=== PATIENT | female | born 1975 | race Caucasian/White ===

== ENCOUNTER → 2019-06-22 12:41 | Outpatient (BNVA) | payer MEDICAID, SELFPAY | PROVIDERS: PCP Nurse Practitioner Family; Visit Provider Counselor Professional | DX: F33.2 Major depressive disorder, recurrent severe without psychotic features; F12.10 Cannabis abuse, uncomplicated | CPT/HCPCS: 90834 ==

== ENCOUNTER → 2019-07-16 07:41 | Outpatient (BNVA) | payer MEDICAID, SELFPAY | PROVIDERS: PCP Nurse Practitioner Family; Visit Provider Counselor Professional | DX: F43.12 Post-traumatic stress disorder, chronic (principal); F33.2 Major depressive disorder, recurrent severe without psychotic features | CPT/HCPCS: 90834 ==

== ENCOUNTER → 2019-07-17 10:34 | Outpatient (BNVA) | payer MEDICAID, SELFPAY | PROVIDERS: PCP Nurse Practitioner Family; Visit Provider Psychiatry & Neurology Psychiatry | DX: F33.2 Major depressive disorder, recurrent severe without psychotic features (principal); F43.12 Post-traumatic stress disorder, chronic; F12.10 Cannabis abuse, uncomplicated | CPT/HCPCS: 99213 ==

== ENCOUNTER → 2019-07-30 09:38 | Outpatient (BNVA) | payer MEDICAID, SELFPAY | PROVIDERS: PCP Nurse Practitioner Family; Visit Provider Counselor Professional | DX: F12.10 Cannabis abuse, uncomplicated (principal); F43.12 Post-traumatic stress disorder, chronic; F33.2 Major depressive disorder, recurrent severe without psychotic features | CPT/HCPCS: 90834 ==

== ENCOUNTER → 2019-07-31 15:29 | Outpatient (BNVA) | payer MEDICAID, SELFPAY | PROVIDERS: PCP Nurse Practitioner Family; Visit Provider Psychiatry & Neurology Psychiatry | DX: F43.12 Post-traumatic stress disorder, chronic (principal); F41.1 Generalized anxiety disorder; F33.2 Major depressive disorder, recurrent severe without psychotic features | CPT/HCPCS: 99213 ==

== ENCOUNTER → 2019-08-06 09:36 | Outpatient (BNVA) | payer MEDICAID, SELFPAY | PROVIDERS: PCP Nurse Practitioner Family; Visit Provider Counselor Professional | DX: F12.10 Cannabis abuse, uncomplicated (principal); F43.12 Post-traumatic stress disorder, chronic; F33.2 Major depressive disorder, recurrent severe without psychotic features | CPT/HCPCS: 90834 ==

== ENCOUNTER → 2019-08-18 13:11 | Outpatient (BNVA) | payer MEDICAID, SELFPAY | PROVIDERS: PCP Nurse Practitioner Family; Visit Provider Counselor Professional | DX: F43.12 Post-traumatic stress disorder, chronic (principal); F33.2 Major depressive disorder, recurrent severe without psychotic features | CPT/HCPCS: 90834 ==

== ENCOUNTER 2019-08-26 17:48 | Outpatient (CLI) | payer MEDICAID, SELFPAY | END 2019-08-26 17:49 | disposition home or self-care (01) | LOC: RAD 17:50 | PROVIDERS: Visit Provider Nurse Practitioner Family | DX: Z01.89 Encounter for other specified special examinations (principal) ==

== ENCOUNTER 2019-08-27 13:24 | Outpatient (CLI) | payer MEDICAID, SELFPAY ==
--- NOTE | 2019-08-27 13:33 | XR_ITS ---
WS: [id number] Thoracic spine, 3 views, 08/27/2019 Clinical Data: R ARM PAIN/UPPER BACK PAIN/ACUTE NECK PAIN Comparison: Thoracic spine, 08/24/2013. Findings: No compression fractures are seen. The disc heights are normal. Anterior osteoarthritic spurring is present from T3 through T12. The paravertebral areas are normal. XR/XR thoracic spine 2V 10082 Impression: Mild osteoarthritis of the vertebral bodies T3-T12.
--- NOTE | 2019-08-27 13:33 | XR_ITS ---
WS: [id number] Cervical spine, 3 views, 08/27/2019 Clinical Data: NECK PAIN/R ARM PAIN/UPPER BACK PAIN Comparison: Cervical spine, 11/15/2012. Findings: No compression fractures are seen. There is minimal disc space narrowing at C5-C6 with calc ification of the anterior longitudinal ligament.. There is no prevertebral soft tissue swelling. The odontoid is unremarkable. The soft tissues of the neck and the lung apices are normal. XR/XR cervical spine 3V* [id number] Impression: Minimal degenerative disc disease at C5-C6 with calcification of the anterior l ongitudinal ligament at this level.
== END 2019-08-27 13:25 | disposition home or self-care (01) ==
LOC: RAD 13:29
PROVIDERS: PCP Nurse Practitioner Family; Visit Provider Nurse Practitioner Family
DX: M47.894 Other spondylosis, thoracic region (principal); M47.892 Other spondylosis, cervical region; M54.2 Cervicalgia; M79.601 Pain in right arm; M54.6 Pain in thoracic spine
CPT/HCPCS: 72040; 72070; 99213

== ENCOUNTER → 2019-08-28 14:50 | Outpatient (BNVA) | payer MEDICAID, SELFPAY | PROVIDERS: PCP Nurse Practitioner Family; Visit Provider Counselor Professional | DX: F33.2 Major depressive disorder, recurrent severe without psychotic features (principal); F43.12 Post-traumatic stress disorder, chronic; F12.10 Cannabis abuse, uncomplicated | CPT/HCPCS: 90834 ==

== ENCOUNTER → 2019-09-09 14:05 | Outpatient (BNVA) | payer MEDICAID, SELFPAY | PROVIDERS: PCP Nurse Practitioner Family; Visit Provider Counselor Professional | DX: F12.10 Cannabis abuse, uncomplicated (principal); F43.12 Post-traumatic stress disorder, chronic; F33.2 Major depressive disorder, recurrent severe without psychotic features | CPT/HCPCS: 90834 ==

== ENCOUNTER → 2019-09-23 11:11 | Outpatient (BNVA) | payer MEDICAID, SELFPAY | PROVIDERS: PCP Nurse Practitioner Family; Visit Provider Counselor Professional | DX: F43.12 Post-traumatic stress disorder, chronic (principal); F33.2 Major depressive disorder, recurrent severe without psychotic features; F12.10 Cannabis abuse, uncomplicated | CPT/HCPCS: 90834 ==

== ENCOUNTER → 2019-10-07 08:17 | Outpatient (BNVA) | payer MEDICAID, SELFPAY | PROVIDERS: PCP Nurse Practitioner Family; Visit Provider Counselor Professional | DX: F12.10 Cannabis abuse, uncomplicated (principal); F43.12 Post-traumatic stress disorder, chronic; F33.2 Major depressive disorder, recurrent severe without psychotic features | CPT/HCPCS: 90834 ==

== ENCOUNTER → 2019-10-19 08:45 | Outpatient (BNVA) | payer MEDICAID, SELFPAY | PROVIDERS: PCP Nurse Practitioner Family; Visit Provider Counselor Professional | DX: F12.10 Cannabis abuse, uncomplicated (principal); F43.12 Post-traumatic stress disorder, chronic; F33.2 Major depressive disorder, recurrent severe without psychotic features | CPT/HCPCS: 90834 ==

== ENCOUNTER → 2019-11-05 07:43 | Outpatient (BNVA) | payer MEDICAID, SELFPAY | PROVIDERS: PCP Nurse Practitioner Family; Visit Provider Psychiatry & Neurology Psychiatry | DX: F43.12 Post-traumatic stress disorder, chronic (principal); F33.2 Major depressive disorder, recurrent severe without psychotic features; F12.10 Cannabis abuse, uncomplicated | CPT/HCPCS: 99213 ==

== ENCOUNTER → 2019-11-06 07:58 | Outpatient (BNVA) | payer MEDICAID, SELFPAY | PROVIDERS: PCP Nurse Practitioner Family; Visit Provider Counselor Professional | DX: F12.10 Cannabis abuse, uncomplicated (principal); F43.12 Post-traumatic stress disorder, chronic; F33.2 Major depressive disorder, recurrent severe without psychotic features | CPT/HCPCS: 90834 ==

== ENCOUNTER 2019-12-07 12:28 | Outpatient (CLI) | payer MEDICAID, SELFPAY ==
--- NOTE | 2019-12-07 12:37 | XRR_ITS ---
PROCEDURE INFORMATION: Exam: XR Right Knee Exam date and time: 12/07/2019 12:38 PM Age: 44 years old Clinical indication: Pain; Knee; Right; Additional info: R knee pain TECHNIQUE: Imaging protocol: XR Right knee. Views: 3 views. COMPARISON: No relevant prior studies available. FINDINGS: Bones/joints: Negative for acute bony abnormality Soft tissues: Unremarkable XR/XR knee RT 4V [id number] IMPRESSION: No acute findings.
== END 2019-12-07 12:29 | disposition home or self-care (01) ==
LOC: RAD 12:31
PROVIDERS: PCP Nurse Practitioner Family; Visit Provider Nurse Practitioner Family
DX: M25.561 Pain in right knee (principal)
CPT/HCPCS: 73564

== ENCOUNTER → 2019-12-09 07:53 | Outpatient (BNVA) | payer MEDICAID, SELFPAY | PROVIDERS: PCP Nurse Practitioner Family; Visit Provider Counselor Professional | DX: F12.10 Cannabis abuse, uncomplicated (principal); F43.12 Post-traumatic stress disorder, chronic; F33.2 Major depressive disorder, recurrent severe without psychotic features | CPT/HCPCS: 90834 ==

== ENCOUNTER → 2020-01-28 07:59 | Outpatient (BNVA) | payer MEDICAID, SELFPAY | PROVIDERS: PCP Nurse Practitioner Family; Visit Provider Psychiatry & Neurology Psychiatry | DX: F12.10 Cannabis abuse, uncomplicated (principal); F43.12 Post-traumatic stress disorder, chronic; F33.2 Major depressive disorder, recurrent severe without psychotic features | CPT/HCPCS: 99213 ==

== ENCOUNTER → 2020-02-08 09:02 | Outpatient (BNVA) | payer MEDICAID, SELFPAY | PROVIDERS: PCP Nurse Practitioner Family; Visit Provider Counselor Professional | DX: F12.10 Cannabis abuse, uncomplicated (principal); F43.12 Post-traumatic stress disorder, chronic; F33.2 Major depressive disorder, recurrent severe without psychotic features | CPT/HCPCS: 90834 ==

== ENCOUNTER → 2020-03-02 08:49 | Outpatient (BNVA) | payer MEDICAID, SELFPAY | PROVIDERS: PCP Nurse Practitioner Family; Visit Provider Counselor Professional | DX: F12.10 Cannabis abuse, uncomplicated (principal); F43.12 Post-traumatic stress disorder, chronic; F33.2 Major depressive disorder, recurrent severe without psychotic features | CPT/HCPCS: 90834 ==

== ENCOUNTER → 2020-03-04 08:24 | Outpatient (BNVA) | payer MEDICAID, SELFPAY | PROVIDERS: PCP Nurse Practitioner Family; Visit Provider Psychiatry & Neurology Psychiatry | DX: F43.12 Post-traumatic stress disorder, chronic (principal); F33.2 Major depressive disorder, recurrent severe without psychotic features; F12.10 Cannabis abuse, uncomplicated | CPT/HCPCS: 99214 ==

== ENCOUNTER → 2020-03-11 08:34 | Outpatient (BNVA) | payer MEDICAID, SELFPAY | PROVIDERS: PCP Nurse Practitioner Family; Visit Provider Counselor Professional | DX: F33.2 Major depressive disorder, recurrent severe without psychotic features (principal); F12.10 Cannabis abuse, uncomplicated; F43.12 Post-traumatic stress disorder, chronic | CPT/HCPCS: 90834 ==

== ENCOUNTER → 2020-03-24 07:56 | Outpatient (BNVA) | payer MEDICAID, SELFPAY | PROVIDERS: PCP Nurse Practitioner Family; Visit Provider Counselor Professional | DX: F33.2 Major depressive disorder, recurrent severe without psychotic features (principal); F12.10 Cannabis abuse, uncomplicated; F43.12 Post-traumatic stress disorder, chronic | CPT/HCPCS: 90834 ==

== ENCOUNTER → 2020-04-11 08:02 | Outpatient (BNVA) | payer MEDICAID, SELFPAY | PROVIDERS: PCP Nurse Practitioner Family; Visit Provider Counselor Professional | DX: F12.10 Cannabis abuse, uncomplicated (principal); F33.2 Major depressive disorder, recurrent severe without psychotic features; F43.12 Post-traumatic stress disorder, chronic | CPT/HCPCS: 90834 ==

== ENCOUNTER → 2020-04-21 07:35 | Outpatient (BNVA) | payer MEDICAID, SELFPAY | PROVIDERS: PCP Nurse Practitioner Family; Visit Provider Psychiatry & Neurology Psychiatry | DX: F43.12 Post-traumatic stress disorder, chronic (principal); F33.2 Major depressive disorder, recurrent severe without psychotic features; F12.10 Cannabis abuse, uncomplicated | CPT/HCPCS: 99213 ==

== ENCOUNTER → 2020-04-28 08:25 | Outpatient (BNVA) | payer MEDICAID, SELFPAY | PROVIDERS: PCP Nurse Practitioner Family; Visit Provider Counselor Professional | DX: F33.2 Major depressive disorder, recurrent severe without psychotic features (principal); F12.10 Cannabis abuse, uncomplicated; F43.12 Post-traumatic stress disorder, chronic | CPT/HCPCS: 90834 ==

== ENCOUNTER → 2020-05-02 08:26 | Outpatient (BNVA) | payer MEDICAID, SELFPAY | PROVIDERS: PCP Nurse Practitioner Family; Visit Provider Specialist | DX: R20.0 Anesthesia of skin (principal); M79.601 Pain in right arm | CPT/HCPCS: 95908 ==

== ENCOUNTER 2020-05-13 08:16 | Emergency (ER) | payer MEDICAID, SELFPAY ==
[2020-05-13 08:24] VITALS: BP 137/87; PULSE 115; RESP 18; TEMP 36.3; O2SAT 97; BMI 42.8
[2020-05-13 08:37] VITALS: BP 137/87; PULSE 107; RESP 18; O2SAT 97
--- NOTE | 2020-05-13 08:37 | XR_ITS ---
WS: [id number] LEFT WRIST: 3 VIEW(S) TECHNIQUE: PA, oblique and lateral. HISTORY: 12/30/2013 COMPARISON: None available. No acute fracture or dislocation. No joint space abnormality. No soft tissue swelling. XR/XR wrist LT min 3V* [id number] IMPRESSION: Negative LEFT wrist.
--- NOTE | 2020-05-13 08:37 | XR_ITS ---
WS: [id number] RIGHT KNEE: 3 VIEW(S) TECHNIQUE: AP, oblique(s) and lateral. HISTORY: fall COMPARISON: 12/07/2019 No fracture or dislocation. No joint space narrowing or osteophytes. No joint effusion. No soft tissue abnormality. XR/XR knee RT 3V* [id number] IMPRESSION: Normal RIGHT knee.
--- NOTE | 2020-05-13 08:38 | W.ED.EXTPRO ---
HPI - Extremity Problem General: Chief complaint: Extremity Injury, Upper Stated complaint: L WRIST/R KNEE PAIN, S/P FALL TODAY Time Seen by Provider: 05/13/20 08:30 History of Present Illness: HPI Narrative: She complains about left wrist pain right knee pain after a fall going up stairs this morning. Says she did hit her chin but has no pain to her chin presently MD Complaint: extremity pain Onset (ago): minute(s) Pain Consistency: constant Location: left, right, upper extremity, lower extremity, knee and other (Wrist left) Severity scale (1-10): 2 Quality: aching Radiation: none Relieving factors: immobilization Exacerbating factors: range of motion Associated symptoms: Reports no associated symptoms; Deny chest pain, fever(s) or rash Review of Systems Narrative: Patient tripped going up stairs landing on left wrist and hitting her right knee on the stair. Says she is slightly struck her chin but her chin is not bothering presently Const: Denies: fever(s), chills or body aches Eyes: Denies: change in vision or blurry vision ENMT: Denies: throat pain or nasal congestion Card: Denies: chest pain or dyspnea on exertion Resp: Denies: dyspnea, productive cough or non-productive cough GI: Denies: abdominal pain, nausea or vomiting Musc: Denies: extremity pain Skin/Breast: Denies: rash Neuro: Denies: headache(s) Psych: Denies: anxiety or depression Ta/Lymph: Denies: easy bruising PFSH ED PFSH: Medical History (Updated 05/13/20 @ 09:13 by ALEXANDRIA Carmona) delivery delivered X 2 Surgical History (Updated 07/17/19 @ 11:11 by Good Whitney LPN) H/O tubal ligation H/O: hysterectomy Social History (Updated 07/17/19 @ 11:17 by Good Whitney LPN) Smoking and tobacco status: never smoked Second hand smoke exposure: Yes Smoking risk assessment/counseling performed?: Yes Tobacco counseling given: counseling >3 minutes Physical Exam Const: COMMON NORMALS: no acute distress, average body habitus and patient oriented x3 HENMT: COMMON NORMALS: normocephalic HEAD & SCALP: normal to inspection and normocephalic FACE & SINUS: normal facial exam Eye: COMMON NORMALS: conjunctivae normal GENERAL EYE: appearance normal, both eyes and all related structures CONJUNCTIVA: Yes conjunctivae normal Neck/C-Spine: COMMON NORMALS: no JVD Chest: COMMONS NORMALS: normal inspection of the chest Resp: COMMON NORMALS: normal respiratory effort Cardio: COMMON NORMALS: no JVD GI: INSPECTION: Yes normal to inspection Extremity: COMMON NORMALS: normal to inspection and full ROM LEFT UPPER EXTREMITY: Yes wrist (Tender on the radial aspect no swelling bruising noted has good range of mo) RIGHT LOWER EXTREMITY: Yes knee joint (Tender to the medial aspect right knee no swelling bruising noted has good ) OTHER: chin appears fine neck without pain good range of motion Neuro: COMMON NORMALS: patient oriented x3 Course Vital Signs: Vital signs: Vital Signs Temperature 97.3 F L 05/13/20 08:24 Pulse Rate 107 H 05/13/20 08:37 Respiratory Rate 18 05/13/20 08:37 Blood Pressure 137/87 05/13/20 08:37 Pulse Oximetry 97 05/13/20 08:37 Discharge Plan Discharge Patient Disposition: Home Clinical Impression: Contusion Qualifiers: Encounter type: initial encounter Contusion area: knee Laterality: right Qualified Code(s): S80.01XA - Contusion of right knee, initial encounter Left wrist sprain Qualifiers: Encounter type: initial encounter Qualified Code(s): S63.502A - Unspecified sprain of left wrist, initial encounter Condition: Stable Prescriptions: No Action lisinopril 20 mg tablet 20 mg PO DAILY RF: 0 cyclobenzaprine 10 mg tablet 10 mg PO PRN RF: 0 amlodipine 10 mg tablet 10 mg PO DAILY RF: 0 metformin 500 mg tablet 500 mg PO BID RF: 0 propranolol 20 mg tablet 10 mg PO BID PRN (Reason: anxiety) Qty: 60 RF: 2 duloxetine [Cymbalta] 60 mg capsule,delayed release(DR/EC) 60 mg PO DAILY Qty: 30 RF: 2 duloxetine 30 mg capsule,delayed release(DR/EC) 30 mg PO DAILY Qty: 30 RF: 2 aripiprazole [Abilify] 2 mg tablet 2 mg PO DAILY Qty: 30 RF: 2 levocetirizine [Xyzal] 5 mg tablet 5 mg PO DAILY RF: 0 azelastine 137 mcg (0.1 %) aerosol,spray 2 spray intranasal BID RF: 0 Aspir-81 81 mg Tablet,Delayed Release (Dr/Ec) 81 mg PO DAILY RF: 0 Tylenol Extra Strength 500 mg Tablet 1,000 mg PO PRN RF: 0 Protonix 40 mg Tablet,Delayed Release (Dr/Ec) 40 mg PO DAILY RF: 0 prazosin 5 mg capsule 5 mg PO BEDTIME RF: 0 amitriptyline 100 mg tablet 100 mg PO BEDTIME RF: 0 Discharge Orders: Discharge Order (Routine); Ordered 05/13/20 Ordered By: Norm Tompkins Referrals: PAULA CAMPUZANO ANIMAL SCIENCE INSTRUCTOR [Primary Care Provider] - Discharge Diet: Usual diet Discharge Activity: Increase activity as tolerated Patient Instructions: Wrist Injury (ED), Contusion in Adults (ED) Activity Restrictions/Additional Instructions: Ice the areas as needed. Follow-up your family medical provider if no significant improvement. 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
[2020-05-13 09:47] VITALS: BP 123/94; PULSE 96; RESP 18; O2SAT 100
== END 2020-05-13 09:49 | disposition home or self-care (01) ==
PROVIDERS: Emergency Provider Nurse Practitioner Family; PCP Nurse Practitioner Family
DX: S80.01XA Contusion of right knee, initial encounter (principal); S63.502A Unspecified sprain of left wrist, initial encounter; Z79.82 Long term (current) use of aspirin; Z77.22 Contact with and (suspected) exposure to environmental tobacco smoke (acute) (chronic); W19.XXXA Unspecified fall, initial encounter
CPT/HCPCS: 12345; 73110; 73562; 99282; 99283

== ENCOUNTER → 2020-05-26 08:02 | Outpatient (BNVA) | payer MEDICAID, SELFPAY | PROVIDERS: PCP Nurse Practitioner Family; Visit Provider Counselor Professional | DX: F33.2 Major depressive disorder, recurrent severe without psychotic features (principal); F12.10 Cannabis abuse, uncomplicated; F43.12 Post-traumatic stress disorder, chronic | CPT/HCPCS: 90834 ==

== ENCOUNTER → 2020-06-23 08:20 | Outpatient (BNVA) | payer MEDICAID, SELFPAY | PROVIDERS: PCP Nurse Practitioner Family; Visit Provider Psychiatry & Neurology Psychiatry | DX: F43.12 Post-traumatic stress disorder, chronic (principal); F33.2 Major depressive disorder, recurrent severe without psychotic features; F12.10 Cannabis abuse, uncomplicated | CPT/HCPCS: 99213 ==

== ENCOUNTER → 2020-06-24 13:54 | Outpatient (BNVA) | payer MEDICAID, SELFPAY | PROVIDERS: PCP Nurse Practitioner Family; Visit Provider Orthopaedic Surgery | DX: Z20.828 Contact with and (suspected) exposure to other viral communicable diseases (principal); Z01.812 Encounter for preprocedural laboratory examination | CPT/HCPCS: 87635 ==

== ENCOUNTER 2020-06-30 05:40 | Day surgery (SDC) | payer MEDICAID, SELFPAY ==
[2020-06-29 15:30] VITALS: BMI 45.0
[2020-06-30 05:52] VITALS: BP 143/105; PULSE 74; RESP 18; TEMP 36.9; O2SAT 97
[2020-06-30] MEDS: sodium chloride 0.9% 1,000 ML 30 ML IV (06:01)
[2020-06-30 06:09] LABS: Glucose Point of Care 100 mg/dL (70-110)
--- NOTE | 2020-06-30 06:25 | P.ANESASSM_ITS ---
Pre-Anesthetic Assessment Pre-Anesthetic Assessment: Height/Weight: Height 1.75 m Weight 138.346 kg Temp Pulse Resp BP Pulse Ox 98.4 F 74 18 143/105 97 06/30/20 05:52 06/30/20 05:52 06/30/20 05:52 06/30/20 05:52 06/30/20 05:52 Preop Diagnosis: Cubital tunnel syndrome, right Proposed Procedure: Operation Date: 06/30/20 07:00 Proposed Procedures p Ulnar Nerve Decompression 56299 G56.21(Right) - Lenny Pennington MD Was Beta Rojas taken within 24 hours: Yes Last intake: Intake Last Liquid Date 06/29/20 Last Liquid Time 20:00 Last Solid Date 06/29/20 Last Solid Time 20:00 Social: Social History: No alcohol and No tobacco Exam: Pre-Anes Outpt Exam: alert, oriented x 3, clear to auscultation bilaterally and regular rate & rhythm Airway: Submandibular: WNL Cervical ROM: WNL MP: 2 Dentition: Full CV/HEM: CV/HEM: HTN Metabolic: Metabolic: DM and Morbid obesity Neuropsych: Neuropsych: Anxiety Anesthetic Plan: ASA status: 3 Anesthesia: Choice Other: Christmas blk/MAC to GA/LMA Risk of > 500 ml blood loss (7ml/kg in children): No Meds/Allergies Current Medications: Current Medications Generic Name Dose Route Start Last Admin Trade Name Freq PRN Reason Stop Dose Admin Sodium Chloride 1,000 mls @ 30 ml s/hr 06/30/20 06:00 06/30/20 06:01 Sodium Chloride 0.9% IV 07/01/20 05:59 30 mls/hr .Q24H PARKER Administration PFSH Anesthesia PFSH: Medical History (Updated 06/29/20 @ 15:30 by Airam Oseguera) delivery delivered X 2 Surgical History (Updated 06/29/20 @ 15:30 by Airam Oseguera) H/O tubal ligation H/O: hysterectomy Social History Smoking and tobacco status: never smoked Second hand smoke exposure: Yes Smoking risk assessment/counseling performed?: Yes Tobacco counseling given: counseling >3 minutes Data Anesthesia Other Labs: Laboratory Results - last 48 hr 06/30/20 06:05 POC Glucose 100 Cardiac Studies: No Data to Display
--- NOTE | 2020-06-30 06:57 | P.HP_ITS ---
Same Day Surgery H&P Indication for Procedure/HPI DATE OF PROCEDURE: June 30, 2020 CHIEF COMPLAINT/INDICATIONFOR SURGICAL PROCEDURE: 44-year-old female with right arm pain and numbness and a diagnosis of a cubital tunnel syndrome. She has failed therapy and had symptoms for years. She is here for ulnar nerve decompression PREOP DIAGNOSIS: Cubital tunnel syndrome, right PLANNED PROCEDRUE: Operation Date: 06/30/20 07:00 Proposed Procedures p Ulnar Nerve Decompression 94301 G56.21(Right) - Lenny Pennington MD Medications/Allergies* Home Medications Medication Instructions Recorded Confirmed Type amlodipine 10 mg tablet 10 mg PO DAILY 07/17/19 06/30/20 History lisinopril 20 mg tablet 20 mg PO DAILY 07/17/19 06/30/20 History metformin 500 mg tablet 500 mg PO BID 01/27/20 06/30/20 History azelastine 137 mcg (0.1 %) nasal 2 spray INTRANASAL BID 05/02/20 06/30/20 History spray aerosol levocetirizine 5 mg tablet 5 mg PO DAILY 05/02/20 06/30/20 History amitriptyline 100 mg PO BEDTIME 05/13/20 06/30/20 History aspirin [Aspir-81] 81 mg PO DAILY 05/13/20 06/30/20 History pantoprazole [Protonix] 40 mg PO DAILY 05/13/20 06/30/20 History acetaminophen 500 mg tablet 1,000 mg PO DAILY PRN tab 06/22/20 06/30/20 History cyclobenzaprine 10 mg tablet 10 mg PO DAILY PRN tab 06/22/20 06/30/20 History Allergies/Adverse Reactions Allergy/AdvReac Type Severity Reaction Status Date / Time No Known Allergies Allergy Verified 06/30/20 05:58 Current Medications: Generic Name Dose Route Start Last Admin Trade Name Freq PRN Reason Stop Dose Admin Sodium Chloride 1,000 mls @ 30 mls/hr 06/30/20 06:00 06/30/20 06:01 Sodium Chloride 0.9% IV 07/01/20 05:59 30 mls/hr .Q24H PARKER Administration Pertinent History/Comorbid Conditions* Medical History (Updated 05/21/20 @ 00:00 by ) delivery delivered X 2 Surgical History (Updated 07/17/19 @ 11:11 by Good Whitney LPN) H/O tubal ligation H/O: hysterectomy Social History Smoking and tobacco status: never smoked Second hand smoke exposure: Yes Smoking risk assessment/counseling performed?: Yes Tobacco counseling given: counseling >3 minutes Pertinent Exam Findings alert, oriented x 3, clear to auscultation bilaterally and operative site marked Recommendations Surgery/Procedure today Coding Level of 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
--- NOTE | 2020-06-30 07:59 | P.OP_ITS ---
Operative Report Date of procedure: June 30, 2020 Pre-op Diagnosis: Cubital tunnel syndrome, right Post-op diagnosis: same Post-op Findings: Same Procedure Done: Right ulnar nerve decompression Pathology: none sent Surgeon: Lenny Pennington Anesthesia: General Estimated blood loss (mL): 20 Tourniquet time (min): 20 Findings: No masses or space-occupying lesions were seen within the cubital tunnel. Condition: stable Disposition: PACU Procedure: the patient was taken to the operating room and given a general anesthesia. A tourniquet was inflated to 225 mmHg. A timeout was performed. A 5 cm long incision was made behind the medial epicondyle. Dissection was accomplished bluntly under loupe magnification identifying the ulnar nerve proximally. Utilizing a hemostat the fascia over the nerve was elevated and incised proximally. Dissection was then carried distally behind the medial epicondyle and into the flexor carpi ulnaris musculature. Dissection was stopped with the first muscular branches identified. Elbow was brought through range of motion with the nerve seen to stay reduced behind the medial epicondyl e. No formal transition was thought to be warranted. Wounds were irrigated with saline. Deep tissues were closed with 2-0 Vicryl. Subcutaneous is closed with 3-0 Vicryl. The skin was closed with a running 3-0 Prolene. Steri-Strips were applied. Xeroform gauze, 4 x 4's, compressive labral, and Jacob wrap, and a sling were applied. The patient was taken recovery room in stable condition.
[2020-06-30 08:12] VITALS: BP 132/86; PULSE 92; RESP 18; TEMP 36.2; O2SAT 98
--- NOTE | 2020-06-30 08:14 | P.PCN_ITS ---
PACU note PACU note: VSS, Good respiratory effort, report to LAB RN Post-Anesthesia Exam: awake
--- NOTE | 2020-06-30 08:14 | PM.PACU ---
PACU note PACU note: VSS, Good respiratory effort, report to CLINICAL SERVICES CONSULTANT Post-Anesthesia Exam: awake
[2020-06-30 08:15] VITALS: BP 142/89; PULSE 70; RESP 18; O2SAT 100
[2020-06-30 08:20] VITALS: BP 144/89; PULSE 74; RESP 30; TEMP 37; O2SAT 94
--- NOTE | 2020-06-30 08:20 | SUR.PHASEI ---
PT AWAKE ALERT ON RA IN PACU SINCE ARRIVAL, PT DENIES PAIN AND NAUSEA, WARM BLANKETS X 3 TO PT PER PT REQUEST, RT ARM IN SLING, DISTAL FINGERS PINK WARM. GOOD RESP EFFORT NOTED , NO DISTRESS, PT REQUESTS COKE TO SIP ON WILL GIVE REPORT TO OPS.
[2020-06-30 08:37] VITALS: BP 135/93; PULSE 78; RESP 18; TEMP 36.2; O2SAT 93
[2020-06-30] MEDS: HYDROcodone-acetaminophen 5-325 mg Tablet 1 TAB PO (09:07)
--- NOTE | 2020-06-30 10:26 | ANE.PACU2 ---
Inpatient post-anesthesia follow up: Airway intact: Yes Vital signs: Temperature 97.1 F Pulse Rate 78 Respiratory Rate 18 Blood Pressure 135/93 Pulse Oximetry 93 Oxygen Delivery Me thod Room Air Oxygen Flow Rate Fraction of Inspir ed Oxygen Hydration adequate: Yes Nausea and vomiting: No Pain level: 1 Mental status: Baseline
== END 2020-06-30 09:18 | disposition home or self-care (01) ==
PROVIDERS: PCP Nurse Practitioner Family; Visit Provider Orthopaedic Surgery
PROC: (CPT 64718; principal; 2020-06-30 07:00)
DX: G56.21 Lesion of ulnar nerve, right upper limb (principal); I10 Essential (primary) hypertension; E11.9 Type 2 diabetes mellitus without complications; E66.01 Morbid (severe) obesity due to excess calories; Z68.42 Body mass index [BMI] 45.0-49.9, adult; F41.9 Anxiety disorder, unspecified
CPT/HCPCS: 64718; 12345; 36416; 82962; J0690; J2704; J3010; J3490; J7030

== ENCOUNTER → 2020-07-07 11:09 | Outpatient (BNVA) | payer MEDICAID, SELFPAY | PROVIDERS: PCP Nurse Practitioner Family; Visit Provider Counselor Professional | DX: F33.2 Major depressive disorder, recurrent severe without psychotic features (principal); F12.10 Cannabis abuse, uncomplicated; F43.12 Post-traumatic stress disorder, chronic | CPT/HCPCS: 90834 ==

== ENCOUNTER 2020-07-15 11:14 | Outpatient (CLI) | payer MEDICAID, SELFPAY ==
--- NOTE | 2020-07-15 12:12 | ECG_ITS ---
[facility] Test Date: 2020-07-15 Pat Name: Celine Melgar Department: Room: Gender: Female Operations Analyst: : 1975 Requested By: Dimas Rodriguez Order Number: [id number] Doris MD: Bianca Kirby M.D. Measurements Intervals Raysal Rate: 80 P: 41 NM: 152 QRS: -23 QRSD: 106 T: 31 QT: 379 QTc: 439 Interpretive Statements SINUS RHYTHM BORDERLINE LEFT AXIS DEVIATION [QRS AXIS < -20] Compared to ECG 08/06/2018 15:42:46 Sinus bradycardia no longer present Myocardial infarct finding no longer present Electronically Signed On 07-15-2020 22:25:16 CONTACT FINGER ASSEMBLER by Bianca Kirby M.D. [id number]
[2020-07-15 12:13] LABS: Basophils # 0.1 10^3/uL (0.0-0.1); Basophils % 0.6 %; Eosinophils # 0.2 10^3/uL (0.0-0.8); Eosinophils % 1.7 %; Hematocrit 42.2 % (37.0-47.0); Hemoglobin 13.9 g/dL (11.5-15.3); Lymphocytes # 3.1 10^3/uL (0.8-4.8); Lymphocytes % 29.2 %; Mean Corpuscular HGB Conc 32.9 g/dL (30.0-36.0); Mean Corpuscular Hemoglobin 28.5 pg (28.0-34.0); Mean Corpuscular Volume 86.7 fL (81-99); Mean Platelet Volume 9.9 fL (7.4-10.4); Monocytes # 0.7 10^3/uL (0.2-0.9); Monocytes % 6.2 %; Neutrophils # 6.52 10^3/uL (1.8-7.7); Neutrophils % 61.5 %; Nucleated Red Blood Cells % 0 %; Platelet Count 329 10^3/cmm (130-400); Red Blood Count 4.87 10^6/uL (4.1-5.3); Red Cell Distribution Width 11.9 % (12.1-15.1); White Blood Count 10.6 10^3/uL (4.0-10.0)
[2020-07-15 12:40] LABS: Anion Gap 14.9 (5-19); Blood Urea Nitrogen 10 mg/dL (6-20); Carbon Dioxide 26 mmol/L (22-29); Chloride 103 mmol/L (98-107); Glomerular Filtration Rate 91.3 mL/min (90-130); Glucose 104 mg/dL (65-115); Osmolality Calculated 289 mOsm/kg (285-295); Potassium 3.9 mmol/L (3.5-5.1); Sodium 140 mmol/L (136-145)
== END 2020-07-15 11:15 | disposition home or self-care (01) ==
PROVIDERS: PCP Nurse Practitioner Family; Visit Provider Specialist
DX: J32.0 Chronic maxillary sinusitis (principal)
CPT/HCPCS: 80048; 85025; 93005

== ENCOUNTER → 2020-07-28 08:59 | Outpatient (BNVA) | payer MEDICAID, SELFPAY | PROVIDERS: PCP Nurse Practitioner Family; Visit Provider Counselor Professional | DX: F33.2 Major depressive disorder, recurrent severe without psychotic features (principal); F12.10 Cannabis abuse, uncomplicated; F43.12 Post-traumatic stress disorder, chronic | CPT/HCPCS: 90834 ==

== ENCOUNTER 2020-07-28 14:28 | Emergency (ER) | payer MEDICAID, SELFPAY ==
[2020-07-28 14:32] VITALS: BP 182/119; PULSE 82; RESP 16; TEMP 37; O2SAT 98; BMI 46.8
[2020-07-28 15:29] VITALS: BP 154/94; PULSE 95; RESP 16; O2SAT 97
[2020-07-28 15:46] VITALS: BP 137/106; PULSE 73; RESP 16; O2SAT 97
--- NOTE | 2020-07-28 15:49 | ED_ITS ---
HPI - Headache General: Chief Complaint: Headache Stated Complaint: MIGRAINE Time Seen by Provider: 07/28/20 15:33 History of Present Illness: HPI Narrative: Patient complains about a migraine for the last 4 days. She has a longstanding history of these. She has taken all her medication she has prescribed plus Excedrin Migraine nothing has worked. She claims about photo and phonophobia. And nausea. MD elicited complaint: migraine Pertinent past history: migraines Onset (ago): day(s) (For) Onset description: while at rest Location: diffuse Severity: moderate Pain scale (0-10): 8 Quality & Timing: aching and throbbing Exacerbating factors: none Relieving factors: dark room Context: occurred at rest Associated symptoms: Reports nausea and photophobia; Deny chest pain, fever(s), neck stiffness, rash or vomiting Treatments prior to arrival: acetaminophen and migraine medication Review of Systems Const: Denies: fever(s), chills or body aches Eyes: Denies: change in vision or blurry vision ENMT: Denies: throat pain or nasal congestion Card: Denies: chest pain or dyspnea on exertion Resp: Denies: dyspnea, productive cough or non-productive cough GI: Reports: nausea; Denies: abdominal pain or vomiting Musc: Denies: extremity pain Skin/Breast: Denies: rash Neuro: Reports: headache(s) Psych: Denies: anxiety or depression Ta/Lymph: Denies: easy bruising [facility] ED PFSH: Medical History delivery delivered X 2 Surgical History H/O tubal ligation H/O: hysterectomy Social History Smoking and tobacco status: never smoked Second hand smoke exposure: Yes Smoking risk assessment/counseling performed?: Yes Tobacco counseling given: counseling >3 minutes Physical Exam Const: COMMON NORMALS: no acute distress, average body habitus and patient oriented x3 HENMT: COMMON NORMALS: normocephalic HEAD & SCALP: normal to inspection and normocephalic FACE & SINUS: normal facial exam Eye: COMMON NORMALS: conjunctivae normal GENERAL EYE: appearance normal, both eyes and all related structures CONJUNCTIVA: Yes conjunctivae normal DIRECT OPHTHALMOSCOPY: Yes photophobia Neck/C-Spine: COMMON NORMALS: no JVD Chest: COMMONS NORMALS: normal inspection of the chest Resp: COMMON NORMALS: normal respiratory effort and clear to auscultation bilaterally AUSCULTATION: clear to auscultation bilaterally Cardio: COMMON NORMALS: no JVD, regular rate and regular rhythm RATE: regular rate RHYTHM: regular rhythm GI: COMMON NORMALS: Normal to inspection, nondistended, normoactive bowel sounds present Extremity: COMMON NORMALS: normal to inspection and full ROM Neuro: COMMON NORMALS: patient oriented x3 and CN's II-XII intact bilaterally Course Vital Signs: Vital signs: Vital Signs Temperature 98.6 F 07/28/20 14:32 Pulse Rate 73 07/28/20 15:46 Respiratory Rate 16 07/28/20 15:46 Blood Pressure 137/106 07/28/20 15:46 Pulse Oximetry 97 07/28/20 15:46 Discharge Plan Discharge Prescriptions: No Action lisinopril 20 mg tablet 20 mg PO DAILY RF: 0 amlodipine 10 mg tablet 10 mg PO DAILY RF: 0 cyclobenzaprine 10 mg tablet 10 mg PO DAILY PRN (Reason: muscle spasm) RF: 0 metformin 500 mg tablet 500 mg PO BID RF: 0 levocetirizine [Xyzal] 5 mg tablet 5 mg PO DAILY RF: 0 azelastine 137 mcg (0.1 %) aerosol,spray 2 spray intranasal BID RF: 0 aripiprazole [Abilify] 2 mg tablet 2 mg PO DAILY Qty: 30 RF: 2 duloxetine [Cymbalta] 60 mg capsule,delayed release(DR/EC) 60 mg PO DAILY Qty: 30 RF: 2 duloxetine 30 mg capsule,delayed release(DR/EC) 30 mg PO DAILY Qty: 30 RF: 2 prazosin 5 mg capsule 5 mg PO BEDTIME Qty: 30 RF: 2 propranolol 20 mg tablet 10 mg PO BID PRN (Reason: anxiety) Qty: 60 RF: 2 aspirin 81 mg Tablet,Delayed Release (Dr/Ec) 81 mg PO DAILY RF: 0 pantoprazole [Protonix] 40 mg Tablet,Delayed Release (Dr/Ec) 40 mg PO DAILY RF: 0 amitriptyline 100 mg tablet 100 mg PO BEDTIME RF: 0 Tylenol Extra Strength 500 mg tablet 1,000 mg PO DAILY PRN (Reason: fever or pain) RF: 0 hydrocodone-acetaminophen 5-325 mg tablet 1 tab PO Q4H Qty: 30 RF: 0 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
[2020-07-28] MEDS: ketorolac 30 mg/mL INJ IVP (16:00)
[2020-07-28] MEDS: ondansetron 2 mg/ML SDV 2 mL 4 MG IVP (16:03)
[2020-07-28 16:05] VITALS: PULSE 81; RESP 16; O2SAT 98
[2020-07-28] MEDS: diphenhydrAMINE 50 mg/mL SDV 1mL 12.5 MG IVP (16:05)
[2020-07-28 16:52] VITALS: BP 172/131; PULSE 69; RESP 16; O2SAT 95
[2020-07-28] MEDS: lisinopril 20 mg Tablet PO (16:54)
[2020-07-28 17:14] VITALS: BP 132/101; PULSE 74; RESP 17; O2SAT 98
== END 2020-07-28 17:16 | disposition home or self-care (01) ==
PROVIDERS: Emergency Provider Nurse Practitioner Family; PCP Nurse Practitioner Family
DX: R51.9 Headache, unspecified (principal); R11.0 Nausea; H53.149 Visual discomfort, unspecified; Z79.82 Long term (current) use of aspirin
CPT/HCPCS: 96374; 96375; 99283; J1200; J1885; J2405

== ENCOUNTER → 2020-08-19 08:38 | Outpatient (BNVA) | payer MEDICAID, SELFPAY | PROVIDERS: PCP Nurse Practitioner Family; Visit Provider Counselor Professional | DX: F33.2 Major depressive disorder, recurrent severe without psychotic features (principal); F12.10 Cannabis abuse, uncomplicated; F43.12 Post-traumatic stress disorder, chronic | CPT/HCPCS: 90834 ==

== ENCOUNTER → 2020-09-08 15:29 | Outpatient (BNVA) | payer MEDICAID, SELFPAY | PROVIDERS: PCP Nurse Practitioner Family; Visit Provider Counselor Professional | DX: F33.2 Major depressive disorder, recurrent severe without psychotic features (principal); F12.10 Cannabis abuse, uncomplicated; F43.12 Post-traumatic stress disorder, chronic | CPT/HCPCS: 90834 ==

== ENCOUNTER → 2020-09-15 08:45 | Outpatient (BNVA) | payer MEDICAID, SELFPAY | PROVIDERS: PCP Nurse Practitioner Family; Visit Provider Psychiatry & Neurology Psychiatry | DX: F43.12 Post-traumatic stress disorder, chronic (principal); F33.2 Major depressive disorder, recurrent severe without psychotic features; F12.10 Cannabis abuse, uncomplicated | CPT/HCPCS: 99213 ==

== ENCOUNTER 2020-09-21 10:35 | Emergency (ER) | payer MEDICAID, SELFPAY ==
[2020-09-21 10:37] VITALS: BP 176/103; PULSE 87; RESP 18; TEMP 36.5; O2SAT 96; BMI 48.6
--- NOTE | 2020-09-21 10:51 | W.ED.EXTPRO ---
HPI - Extremity Problem General: Chief complaint: Extremity Problem,Nontraumatic Stated complaint: LOWER EXTREMITY SWELLING/PAIN Time Seen by Provider: 09/21/20 10:42 Source: patient Mode of arrival: ambulatory Limitations: no limitations History of Present Illness: HPI Narrative: Patient is a 45-year-old female presents to ED today for evaluation of lower extremity swelling. Patient states over the last week and a half she has noticed intermittent swelling to her bilateral lower extremities. She tells me she has tried compression stockings and elevation without relief. She states she has seen her PCP at [facility] but states they did not seem concerned . Patient denies any new medications. She states she has limited her salt intake but again has not noticed any improvement. She is not complaining of shortness of breath or chest pain. No abdominal swelling. MD Complaint: extremity swelling Onset (ago): day(s) Pain Consistency: constant and intermittent Location: left, right and lower extremity Relieving factors: nothing Exacerbating factors: nothing Associated symptoms: Reports no associated symptoms; Deny chest pain, fever(s) or rash Review of Systems Const: Denies: fever(s), chills, body aches, fatigue or malaise Eyes: Denies: change in vision or blurry vision Card: Reports: swelling of feet/ankles; Denies: chest pain, palpitations, irregular heart rhythm, edema, lightheadedness, syncope, pre-syncope, dyspnea on exertion, orthopnea, leg pain with exertion or acrocyanosis Resp: Denies: dyspnea GI: Denies: abdominal pain, nausea or vomiting Musc: Reports: extremity pain and extremity swelling; Denies: neck pain, back pain, joint pain, joint swelling, joint redness, joint warmth, joint stiffness or limited range of motion Skin/Breast: Denies: rash Neuro: Denies: headache(s), numbness in extremities, weakness in extremities, sensory changes or difficulty walking [facility] ED PFSH: Medical History delivery delivered X 2 Surgical History H/O tubal ligation H/O: hysterectomy Social History Smoking and tobacco status: never smoked Second hand smoke exposure: Yes Smoking risk assessment/counseling performed?: Yes Tobacco counseling given: counseling >3 minutes Physical Exam Const: COMMON NORMALS: no acute distress, patient oriented x3, no limitations and alert GENERAL APPEARANCE: cooperative NUTRITIONAL APPEARANCE: obese morbidly obese ORIENTATION/CONSCIOUSNESS: Yes awake, Yes oriented to person, Yes oriented to place and Yes oriented to time HENMT: COMMON NORMALS: normocephalic and atraumatic HEAD & SCALP: normocephalic and atraumatic Resp: COMMON NORMALS: normal respiratory effort and clear to auscultation bilaterally AUSCULTATION: clear to auscultation bilaterally Cardio: COMMON NORMALS: regular rate and regular rhythm RATE: regular rate RHYTHM: regular rhythm GI: COMMON NORMALS: Normal to inspection, nondistended, normoactive bowel sounds present, Soft to palpation, non-tender, No hepatosplenomegaly present and no masses INSPECTION: Yes other (no ascites ) PALPATION: Yes Soft to palpation and Yes No hepatosplenomegaly present Extremity: COMMON NORMALS: full ROM, capillary refill normal, no joint enlargement and no calf tenderness NARRATIVE EXTREMITY EXAM: bilateral symmetrical LE non-pitting edema GENERAL: Yes normal exam except as noted Neuro: COMMON NORMALS: patient oriented x3, moves all extremities, no focal motor deficits, no sensory deficits noted and gait normal SENSORIUM/ORIENTATION: Yes alert, Yes oriented to person, Yes oriented to place and Yes oriented to time Skin: COMMON NORMALS: no rashes or lesions noted GENERAL SKIN EXAM: no rashes or lesions noted Course Vital Signs: Vital signs: Vital Signs Temperature 97.7 F 09/21/20 10:37 Pulse Rate 84 09/21/20 11:05 Respiratory Rate 18 09/21/20 10:37 Blood Pressure 176/103 09/21/20 10:37 Pulse Oximetry 96 09/21/20 10:37 MDM - Extremity (Nontraumatic) MDM Narrative: Medical decision making narrative: Patient's labs are non-concerning. Discussed with her possible higher grade compression stockings. Discussed weight loss. Mentioned that patient's amlodipine can cause lower extremity swelling-she can discuss this with her primary care provider. She is stable for discharge. Lab Data: Labs: Lab Results 09/21/20 09/21/20 Range/Units 11:03 11:03 WBC 8.0 (4.0-10.0) 10^3/ uL RBC 4.85 (4.1-5.3) 10^6/u L Hgb 13.8 (11.5-15.3) g/dL Hct 41.4 (37.0-47.0) % MCV 85.4 (81-99) fL MCH 28.5 (28.0-34.0) pg MCHC 33.3 (30.0-36.0) g/dL RDW 12.4 (12.1-15.1) % Plt Count 314 (130-400) 10^3/c mm MPV 9.8 (7.4-10.4) fL Neut % (Auto) 62.8 % Lymph % (Auto) 27.6 % [place] % (Auto) 7.2 % Eos % (Auto) 1.6 % Baso % (Auto) 0.4 % Neut # (Auto) 5.04 (1.8-7.7) 10^3/u L Lymph # (Auto) 2.2 (0.8-4.8) 10^3/u L [place] # (Auto) 0.6 (0.2-0.9) 10^3/u L Eos # (Auto) 0.1 (0.0-0.8) 10^3/u L Baso # (Auto) 0.0 (0.0-0.1) 10^3/u L Nucleated RBC % (a uto) 0 % Nucleated RBCs # 0.0 /100WBC Sodium 139 (136-145) mmol/L Potassium 3.6 (3.5-5.1) mmol/L Chloride 103 (98-107) mmol/L Carbon Dioxide 25 (22-29) mmol/L Anion Gap 14.6 (5-19) BUN 12 (6-20) mg/dL Creatinine 0.8 (0.5-0.9) mg/dL GFR Calculation 77.9 L (90-130) mL/min Glucose 137 H (65-115) mg/dL Calculated Osmolal ity 290 (285-295) mOsm/k g Calcium 8.7 (8.5-10.5) mg/dL Total Bilirubin 0.5 (0.15-1.2) mg/dL AST 19 (0-32) U/L ALT 31 (0-33) U/L Alkaline Phosphata se 60 (35-105) IU/L NT-Pro-B Natriuret Pep 114 (0-125) pg/mL Total Protein 7.3 (6.6-8.7) g/dL Albumin 4.2 (3.5-5.2) g/dL Globulin 3.1 (1.3-4.6) g/dL Discharge Plan Discharge Patient Disposition: Home Clinical Impression: Bilateral leg edema Condition: Stable Prescriptions: No Action lisinopril 20 mg tablet 20 mg PO DAILY RF: 0 amlodipine 10 mg tablet 10 mg PO DAILY RF: 0 tizanidine 4 mg capsule 4 mg PO TID PRNRF: 0 fenofibrate nanocrystallized 145 mg tablet 145 mg PO DAILY RF: 0 propranolol 20 mg tablet 10 mg PO BID PRN (Reason: anxiety) Qty: 60 RF: 2 prazosin 5 mg capsule 10 mg PO BEDTIME Qty: 60 RF: 2 aripiprazole [Abilify] 2 mg tablet 2 mg PO DAILY Qty: 30 RF: 2 metformin 500 mg tablet 500 mg PO BID RF: 0 levocetirizine [Xyzal] 5 mg tablet 5 mg PO DAILY RF: 0 azelastine 137 mcg (0.1 %) aerosol,spray 2 spray intranasal BID RF: 0 aspirin 81 mg Tablet,Delayed Release (Dr/Ec) 81 mg PO DAILY RF: 0 pantoprazole [Protonix] 40 mg Tablet,Delayed Release (Dr/Ec) 40 mg PO DAILY RF: 0 Tylenol Extra Strength 500 mg tablet 1,000 mg PO DAILY PRN (Reason: fever or pain) RF: 0 hydrocodone-acetaminophen 5-325 mg tablet 1 tab PO Q4H Qty: 30 RF: 0 Discharge Orders: Discharge ED (Routine); Ordered 09/21/20 Ordered By: Rozina Frost Referrals: Amada Rivers, WALKING DRAGLINE OPERATOR [Primary Care Provider] - Patient Instructions: Leg Edema (ED) Coding Level of Care Code ED Fishing Vessel Mate for [place] Exam Comprehensive
[2020-09-21 11:05] VITALS: PULSE 84
[2020-09-21 11:08] LABS: Basophils % 0.4 %; Eosinophils # 0.1 10^3/uL (0.0-0.8); Eosinophils % 1.6 %; Hematocrit 41.4 % (37.0-47.0); Hemoglobin 13.8 g/dL (11.5-15.3); Lymphocytes # 2.2 10^3/uL (0.8-4.8); Lymphocytes % 27.6 %; Mean Corpuscular HGB Conc 33.3 g/dL (30.0-36.0); Mean Corpuscular Hemoglobin 28.5 pg (28.0-34.0); Mean Corpuscular Volume 85.4 fL (81-99); Mean Platelet Volume 9.8 fL (7.4-10.4); Monocytes # 0.6 10^3/uL (0.2-0.9); Monocytes % 7.2 %; Neutrophils # 5.04 10^3/uL (1.8-7.7); Neutrophils % 62.8 %; Nucleated Red Blood Cells % 0 %; Platelet Count 314 10^3/cmm (130-400); Red Blood Count 4.85 10^6/uL (4.1-5.3); Red Cell Distribution Width 12.4 % (12.1-15.1)
[2020-09-21 11:40] LABS: Alanine Aminotransferase 31 U/L (0-33); Albumin Level 4.2 g/dL (3.5-5.2); Alkaline Phosphatase 60 IU/L (35-105); Anion Gap 14.6 (5-19); Aspartate Amino Transferase 19 U/L (0-32); Blood Urea Nitrogen 12 mg/dL (6-20); Calcium 8.7 mg/dL (8.5-10.5); Carbon Dioxide 25 mmol/L (22-29); Chloride 103 mmol/L (98-107); Globulin 3.1 g/dL (1.3-4.6); Glomerular Filtration Rate 77.9 mL/min (90-130); Glucose 137 mg/dL (65-115); NT Pro B Type Natriuretic Pept 114 pg/mL (0-125); Osmolality Calculated 290 mOsm/kg (285-295); Potassium 3.6 mmol/L (3.5-5.1); Sodium 139 mmol/L (136-145); Total Bilirubin 0.5 mg/dL (0.15-1.2); Total Protein 7.3 g/dL (6.6-8.7)
== END 2020-09-21 12:02 | disposition home or self-care (01) ==
PROVIDERS: Emergency Provider Physician Assistant; PCP Nurse Practitioner Family
DX: R60.0 Localized edema (principal); Z79.84 Long term (current) use of oral hypoglycemic drugs; Z79.82 Long term (current) use of aspirin; Z77.22 Contact with and (suspected) exposure to environmental tobacco smoke (acute) (chronic)
CPT/HCPCS: 80053; 83880; 85025; 99282

== ENCOUNTER 2020-09-26 10:24 | Emergency (ER) | payer MEDICAID, SELFPAY ==
[2020-09-26 10:29] VITALS: BP 224/114; PULSE 61; RESP 16; TEMP 36.5; O2SAT 94; BMI 47.2
[2020-09-26] MEDS: sodium chloride 0.9% 1,000 ML 999 ML IV (10:47)
[2020-09-26] MEDS: ondansetron 2 mg/ML SDV 2 mL 4 MG IVP ×2 (10:48→13:09)
--- NOTE | 2020-09-26 10:55 | CT_ITS ---
WS: [id number] CT ABDOMEN AND PELVIS WITH CONTRAST HISTORY: RIGHT lower quadrant pain with nausea. TECHNIQUE: Imaging performed of the abdomen and pelvis with IV contrast. Single phase imaging of the abdomen. Coronal and sagittal reformats are submitted. All CT scans at [facility] use at least one of these dose optimization techniques: automated exposure control; mA and/or kV adjustment per patient size (includes targeted exams where dose is matched to clinical indication); or iterativ e reconstruction. IV CONTRAST: Omnipaque 300; 95 mL IV. Oral contrast: No DLP: 1973.44 mGy.cm COMPARISON: None available. Lower thorax: Lung bases are clear. Heart is normal size. Small hiatal hernia. Liver/biliary system: Diffuse moderate hepatic steatosis. No mass or bile duct dilatation. Gallbladder: Status post cholecystectomy. Pancreas: Normal. Spleen: Normal size spleen with cystic mass in the tail measuring 2.5 x 2.8 cm. Adrenal glands: Normal. Right kidney: Moderate enlargement of the kidney with perinephric stranding and moderate hydronephros is. Ureter is dilated and tortuous into the pelvis. 5 mm calcification in the distal ureter. Solid ap pearing mass in the upper pole measures 2.5 x 2.2 cm needs follow-up evaluation. No mass was identifi ed on the prior ultrasound from 2013. Left kidney: Too small to characterize scattered hypodensities. Nonobstructing 4 mm calcification in the lower pole. Aorta: Normal. Lymphadenopathy: None. Free fluid: None. GI tract: Prior appendectomy. No GI tract obstruction. Abdominal wall: Fat-containing umbilical hernia. There is an additional small midline umbilical fat-c ontaining hernia. Pelvis: Normal. Bones: Mixed lytic sclerotic lesion in the LEFT femoral neck with no cortical destruction. Was probab ly present on the localizer from the CT of 06/14/2016. CT/CT abdomen pelvis w con* [id number] IMPRESSION: 1. Moderate RIGHT hydroureteronephrosis secondary to a 5 mm calcification in t he distal ureter. 2. Enlarged RIGHT kidney with perinephric stranding and changes of pyelonephri tis suspected. 3. Nonobstructing calcification lower pole LEFT kidney. 4. Indeterminate mass within the superior pole RIGHT kidney may be a renal selene l neoplasm. Suggest renal CT mass protocol follow-up in 3 months to evaluate fo r any change in size. 5. Hepatic steatosis. 6. Prior cholecystectomy, appendectomy and hysterectomy.
[2020-09-26 11:01] LABS: Basophils % 0.2 %; Eosinophils % 0.2 %; Hematocrit 42.5 % (37.0-47.0); Hemoglobin 13.9 g/dL (11.5-15.3); Lymphocytes # 2.1 10^3/uL (0.8-4.8); Lymphocytes % 15.6 %; Mean Corpuscular HGB Conc 32.7 g/dL (30.0-36.0); Mean Corpuscular Hemoglobin 27.9 pg (28.0-34.0); Mean Corpuscular Volume 85.3 fL (81-99); Mean Platelet Volume 10.1 fL (7.4-10.4); Monocytes # 1.5 10^3/uL (0.2-0.9); Monocytes % 11.5 %; Neutrophils # 9.47 10^3/uL (1.8-7.7); Neutrophils % 71.8 %; Nucleated Red Blood Cells % 0 %; Platelet Count 368 10^3/cmm (130-400); Red Blood Count 4.98 10^6/uL (4.1-5.3); Red Cell Distribution Width 12.7 % (12.1-15.1); White Blood Count 13.2 10^3/uL (4.0-10.0)
--- NOTE | 2020-09-26 11:06 | W.ED.ABDPA2 ---
HPI - Abdominal Pain General: Chief Complaint: Abdominal Pain Stated Complaint: lower right abd pain Time Seen by Provider: 09/26/20 10:29 History of Present Illness: HPI narrative: 45-year-old female presents emergency room with complaint of abdominal pain that began last night and localizes pain to the right lower quadrant of the abdomen with nausea and vomiting. She has had decreased urination with urgency and frequency mild dysuria. Denies any hematochezia or melena. She has previously had a hysterectomy and a cholecystectomy. MD elicited complaint: abdominal pain Onset (ago): hour(s) Pain Consistency: constant Location: None Quality: cramping Radiation: none Migration to: no migration Exacerbating factors: eating Relieving factors: nothing Associated Symptoms: Reports anorexia, bloating, GI cramping, loose stools, nausea, poor appetite and vomiting; Denies belching, change in bowel habits, change in stool character, chills, coffee ground emesis, constipation, diarrhea, dyspepsia, dysuria, excessive flatus, fever(s), heartburn, hematochezia, hematuria, hematemesis, fecal incontinence, melena and syncope Review of Systems Const: Denies: fever(s) or chills ENMT: Denies: throat pain, ear or mastoid pain, nasal discharge or nasal congestion Card: Denies: syncope Resp: Denies: dyspnea, productive cough or non-productive cough GI: Reports: vomiting, bloating and GI cramping; Denies: hematemesis, coffee ground emesis, heartburn, diarrhea, constipation, belching, excessive flatus, fecal incontinence, change in bowel habits, change in stool character, hematochezia or melena : Denies: dysuria or hematuria Skin/Breast: Denies: rash or pruritus PFS ED PFSH: Medical History delivery delivered X 2 Surgical History H/O tubal ligation H/O: hysterectomy Social History Smoking and tobacco status: never smoked Second hand smoke exposure: Yes Smoking risk assessment/counseling performed?: Yes Tobacco counseling given: counseling >3 minutes Alcohol intake: never Substance/Drug Use: current Substance/Drug use frequency: daily Substance/Drug use type: Marijuana Physical Exam Const: COMMON NORMALS: no acute distress GENERAL APPEARANCE: cooperative and comfortable ORIENTATION/CONSCIOUSNESS: Yes awake, Yes oriented to person, Yes oriented to place and Yes oriented to time HENMT: COMMON NORMALS: normocephalic, atraumatic and hearing grossly normal bilaterally HEAD & SCALP: normocephalic and atraumatic Neck/C-Spine: COMMON NORMALS: no JVD Resp: COMMON NORMALS: normal respiratory effort, No retractions, No use of accessory muscles and clear to auscultation bilaterally AUSCULTATION: clear to auscultation bilaterally Cardio: COMMON NORMALS: no JVD, regular rate, regular rhythm and No murmurs present (Cardio) RATE: regular rate RHYTHM: regular rhythm GI: COMMON NORMALS: Soft to palpation and No hepatosplenomegaly present AUSCULTATION: Yes normoactive bowel sounds PALPATION: Yes Soft to palpation, No Tenderness to palpation present (GI), No Guarding due to palpation present (GI) and Yes No hepatosplenomegaly present Extremity: COMMON NORMALS: normal to inspection, capillary refill normal, no clubbing, cyanosis or edema, no calf tenderness and no pedal edema Neuro: SENSORIUM/ORIENTATION: Yes oriented to person, Yes oriented to place and Yes oriented to time Skin: COMMON NORMALS: no rashes or lesions noted GENERAL SKIN EXAM: no rashes or lesions noted Course Vital Signs: Vital signs: Vital Signs Temperature 97.7 F 09/26/20 10:29 Pulse Rate 61 09/26/20 10:29 Respiratory Rate 18 09/26/20 13:08 Blood Pressure 224/114 09/26/20 10:29 Pulse Oximetry 96 09/26/20 13:08 MDM - Abdominal Pain MDM Narrative: Medical decision making narrative: Patient has distal renal stone. She is feeling better after pain medications will discharge home with hydrocodone Zofran and tamsulosin strain urine. Also gave her from oral supplementation here as well as some IV discharged home a couple days of p.o. supplement have her recheck with her primary care doctor on her potassium in 4 to 5 days. Follow-up with Lab Data: Labs: Lab Results 09/26/20 09/26/20 09/26/20 Range/Units 10:34 10:53 10:53 WBC 13.2 H (4.0-10.0) 10^3/ uL RBC 4.98 (4.1-5.3) 10^6/u L Hgb 13.9 (11.5-15.3) g/dL Hct 42.5 (37.0-47.0) % MCV 85.3 (81-99) fL MCH 27.9 L (28.0-34.0) pg MCHC 32.7 (30.0-36.0) g/dL RDW 12.7 (12.1-15.1) % Plt Count 368 (130-400) 10^3/c mm MPV 10.1 (7.4-10.4) fL Neut % (Auto) 71.8 % Lymph % (Auto) 15.6 % [place] % (Auto) 11.5 % Eos % (Auto) 0.2 % Baso % (Auto) 0.2 % Neut # (Auto) 9.47 H (1.8-7.7) 10^3/u L Lymph # (Auto) 2.1 (0.8-4.8) 10^3/u L [place] # (Auto) 1.5 H (0.2-0.9) 10^3/u L Eos # (Auto) 0.0 (0.0-0.8) 10^3/u L Baso # (Auto) 0.0 (0.0-0.1) 10^3/u L Nucleated RBC % (a uto) 0 % Nucleated RBCs # 0.0 /100WBC Sodium 147 H (136-145) mmol/L Potassium 2.2 L* (3.5-5.1) mmol/L Chloride 120 H (98-107) mmol/L Carbon Dioxide 18 L (22-29) mmol/L Anion Gap 10.2 (5-19) BUN 10 (6-20) mg/dL Creatinine 0.6 (0.5-0.9) mg/dL GFR Calculation 108.6 (90-130) mL/min Glucose 103 (65-115) mg/dL Calculated Osmolal ity 303 H (285-295) mOsm/k g Calcium 5.5 L* (8.5-10.5) mg/dL Magnesium 1.3 L (1.7-2.3) mg/dL Total Bilirubin 0.2 (0.15-1.2) mg/dL AST 12 (0-32) U/L ALT 16 (0-33) U/L Alkaline Phosphata se 38 (35-105) IU/L Total Protein 4.7 L (6.6-8.7) g/dL Albumin 3.0 L (3.5-5.2) g/dL Globulin 1.5 (1.3-4.6) g/dL Lipase 7 L (13-60) U/L Urine Color Yellow (Yellow) Urine Appearance Hazy A (CLEAR) Urine pH 5 (5-7) Ur Specific Gravit y 1.025 (1.005-1.030) Urine Protein 1+ H (Negative) Urine Glucose (UA) Norm (Normal) Urine Ketones Negative (Negative) Urine Blood 3+ H (Negative) Urine Nitrate Negative (Negative) Urine Bilirubin 1+ H (Negative) Urine Urobilinogen 1 H (Negative) mg/dL Ur Leukocyte Treva ase Negative (Negative) Urine RBC 5-10 H (0-2) /hpf Urine WBC None (0-5) /hpf Ur Squamous Epith Cells 5-10 H (0-5) /hpf Amorphous Sediment Not Reportable Urine Bacteria Trace (NONE) /hpf Urine Mucus 1+ /hpf Discharge Plan Discharge Patient Disposition: Home Clinical Impression: Calculus of kidney, Hypokalemia Condition: Stable Prescriptions: New hydrocodone-acetaminophen 5-325 mg tablet 1 tab PO Q6H PRN (Reason: pain) Qty: 20 RF: 0 potassium chloride 20 mEq tablet extended release 20 meq PO BID Qty: 6 RF: 0 ondansetron HCl [Zofran] 4 mg tablet 4 mg PO Q6H PRN (Reason: nausea and vomiting) Qty: 15 RF: 0 tamsulosin 0.4 mg capsule 0.4 mg PO DAILY Qty: 20 RF: 0 No Action lisinopril 20 mg tablet 20 mg PO QAM RF: 0 amlodipine 10 mg tablet 10 mg PO QAM RF: 0 tizanidine 4 mg capsule 4 mg PO TID PRN (Reason: Muscle Spasm) RF: 0 fenofibrate nanocrystallized 145 mg tablet 145 mg PO QAM RF: 0 propranolol 20 mg tablet 10 mg PO BID PRN (Reason: anxiety) Qty: 60 RF: 2 prazosin 5 mg capsule 10 mg PO BEDTIME Qty: 60 RF: 2 metformin 500 mg tablet 500 mg PO BID RF: 0 levocetirizine [Xyzal] 5 mg tablet 5 mg PO QAM RF: 0 azelastine 137 mcg (0.1 %) aerosol,spray 2 spray intranasal BID RF: 0 aspirin 81 mg Tablet,Delayed Release (Dr/Ec) 81 mg PO QAM RF: 0 pantoprazole [Protonix] 40 mg Tablet,Delayed Release (Dr/Ec) 40 mg PO QAM RF: 0 Tylenol Extra Strength 500 mg tablet 1,000 mg PO PRN RF: 0 sumatriptan succinate 50 mg tablet 50 mg PO PRN RF: 0 doxycycline hyclate 100 mg tablet 100 mg PO BID RF: 0 Abilify 2 mg tablet 2 mg PO QAM RF: 0 Discharge Orders: Discharge ED (Routine); Ordered 09/26/20 Ordered By: Shabbir Krishnan Referrals: Amada Rivers, MID LEVEL JAVA DEVELOPER [Primary Care Provider] - Discharge Diet: Usual diet Discharge Activity: Increase activity as tolerated Patient Instructions: Opioid Safety Activity Restrictions/Additional Instructions: Case management will call to arrange for a follow-up with Dr. Amaro. Coding Level of Care Code ED Twisthand for [place] Fwd Exam Comprehensive
[2020-09-26 11:26] LABS: Alanine Aminotransferase 16 U/L (0-33); Alkaline Phosphatase 38 IU/L (35-105); Anion Gap 10.2 (5-19); Aspartate Amino Transferase 12 U/L (0-32); Blood Urea Nitrogen 10 mg/dL (6-20); Globulin 1.5 g/dL (1.3-4.6); Glomerular Filtration Rate 108.6 mL/min (90-130); Glucose 103 mg/dL (65-115); Total Bilirubin 0.2 mg/dL (0.15-1.2)
[2020-09-26 11:30] LABS: Protein Urine 1+ (Negative); Specific Gravity, Urine 1.025 (1.005-1.030); Urine Appearance Hazy (CLEAR); Urine Color Yellow (Yellow); pH Urine 5 (5-7)
[2020-09-26 11:31] LABS: Add Urine Microscopic? YES; Bilirubin Urine 1+ (Negative); Blood Urine 3+ (Negative); Glucose Urine UA Norm (Normal); Ketones Urine Negative (Negative); Leukocyte Esterase Urine Negative (Negative); Nitrate Urine Negative (Negative); Urobilinogen Urine 1 mg/dL (Negative)
[2020-09-26 11:32] LABS: Add Urine Culture? No; Bacteria Urine TRACE /hpf; Mucus Urine 1+ /hpf
[2020-09-26 11:56] LABS: Carbon Dioxide 18 mmol/L (22-29); Chloride 120 mmol/L (98-107); Lipase 7 U/L (13-60); Magnesium 1.3 mg/dL (1.7-2.3); Osmolality Calculated 303 mOsm/kg (285-295); Sodium 147 mmol/L (136-145); Total Protein 4.7 g/dL (6.6-8.7)
[2020-09-26 11:58] LABS: Potassium 2.2 mmol/L (3.5-5.1)
[2020-09-26 12:00] LABS: Calcium 5.5 mg/dL (8.5-10.5)
[2020-09-26] MEDS: iohexol 300 mg/mL 100 mL Btl IV (12:15)
[2020-09-26 13:08] VITALS: RESP 18; O2SAT 96
[2020-09-26] MEDS: lidocaine 1% 5 ML in potassium chloride premix 100 ML 25 ML IV (13:08)
[2020-09-26] MEDS: morphine 4 mg/mL SDV 1 mL 6 MG IVP (13:08)
[2020-09-26] MEDS: potassium chloride oral liq 20 mEq/15 mL UDC 80 MEQ PO (13:43)
[2020-09-26 13:45] VITALS: BP 144/93; PULSE 55; RESP 18; O2SAT 97
[2020-09-26 13:46] VITALS: BP 144/93; PULSE 47; RESP 18; O2SAT 97
--- NOTE | 2020-09-27 11:22 | DCPLANNER ---
manager of corporate had message to schedule a follow up appointment for patient with Dr. Amaro for a renal stone. manager of corporate called the office of Dr. Amaro, spoke with Alexa, gave clinic patients information. manager of corporate was told that patients information would be printed and reviewed. Clinic will call patient with appointment information.
--- NOTE | 2020-09-28 08:04 | DCPLANNER ---
Patient has a follow up appointment scheduled for Monday, September 28, [address] at 9:[address] Amaro. Clinic will call patient with appointment information.
== END 2020-09-26 14:35 | disposition home or self-care (01) ==
PROVIDERS: Emergency Provider Family Medicine; PCP Nurse Practitioner Family
DX: N20.0 Calculus of kidney (principal); E87.6 Hypokalemia; Z79.82 Long term (current) use of aspirin; Z77.22 Contact with and (suspected) exposure to environmental tobacco smoke (acute) (chronic)
CPT/HCPCS: 74177; 80053; 81001; 83690; 83735; 85025; 96361; 96374; 96375; 96376; 99284; 99291; J2270; J2405; J3480; J7030; Q9967

== ENCOUNTER 2020-09-28 08:01 | Outpatient (CLI) | payer MEDICAID, SELFPAY ==
--- NOTE | 2020-09-28 08:00 | XR_ITS ---
WS: [id number] KUB, AP view, 09/28/2020 Clinical Data: STONE Comparison: CT abdomen and pelvis, 09/26/2020. Findings: No abnormal intraabdominal masses are seen. There is no dilatated small bowel or evidence of obstruct ion. There is a calcification overlying the lower pole the left kidney which may represent a renal calculu s. No definite ureteral calculi are seen. Colon gas obscures detail over both kidneys. There are clip s in the right upper quadrant and right side of the abdomen from surgery. XR/XR KUB [id number] Impression: 1. Possible left renal calcification. 2. No definite ureteral calculi are seen.
== END 2020-09-28 08:02 | disposition home or self-care (01) ==
PROVIDERS: PCP Nurse Practitioner Family; Visit Provider Urology
DX: N20.0 Calculus of kidney (principal)
CPT/HCPCS: 74018; 81003

== ENCOUNTER 2020-10-02 15:18 | Emergency (ER) | payer MEDICAID, SELFPAY ==
[2020-10-02 15:30] VITALS: BP 170/102; PULSE 100; RESP 18; TEMP 37.1; O2SAT 97; BMI 45.8
[2020-10-02 16:44] LABS: Basophils # 0.1 10^3/uL (0.0-0.1); Basophils % 0.4 %; Eosinophils # 0.2 10^3/uL (0.0-0.8); Eosinophils % 1.9 %; Hematocrit 41.7 % (37.0-47.0); Hemoglobin 13.8 g/dL (11.5-15.3); Lymphocytes # 2.4 10^3/uL (0.8-4.8); Lymphocytes % 20.2 %; Mean Corpuscular HGB Conc 33.1 g/dL (30.0-36.0); Mean Corpuscular Hemoglobin 28.6 pg (28.0-34.0); Mean Corpuscular Volume 86.3 fL (81-99); Monocytes # 0.9 10^3/uL (0.2-0.9); Monocytes % 7.1 %; Neutrophils # 8.44 10^3/uL (1.8-7.7); Neutrophils % 69.8 %; Nucleated Red Blood Cells % 0 %; Platelet Count 353 10^3/cmm (130-400); Red Blood Count 4.83 10^6/uL (4.1-5.3); Red Cell Distribution Width 12.6 % (12.1-15.1); White Blood Count 12.1 10^3/uL (4.0-10.0)
[2020-10-02 16:48] LABS: Urine Appearance Clear (CLEAR); Urine Color Yellow (Yellow)
[2020-10-02 16:49] LABS: Add Urine Microscopic? YES; Bilirubin Urine Neg (Negative); Blood Urine 2+ (Negative); Glucose Urine UA Norm (Normal); Ketones Urine Negative (Negative); Leukocyte Esterase Urine Negative (Negative); Nitrate Urine Negative (Negative); Protein Urine Neg (Negative); Specific Gravity, Urine 1.025 (1.005-1.030); Urobilinogen Urine Norm (Negative); pH Urine 5 (5-7)
[2020-10-02] MEDS: sodium chloride 0.9% 1,000 ML 999 ML IV (16:51)
[2020-10-02 16:52] VITALS: RESP 18; O2SAT 98
[2020-10-02] MEDS: morphine 4 mg/mL SDV 1 mL IVP (16:52)
[2020-10-02] MEDS: ondansetron 2 mg/ML SDV 2 mL 4 MG IVP (16:52)
[2020-10-02 16:54] LABS: Bacteria Urine TRACE /hpf; Mucus Urine 1+ /hpf; Squamous Epithelial Cell Urine 0-4 /hpf (0-5); WBC Urine RARE /hpf (0-5)
[2020-10-02 16:55] LABS: Add Urine Culture? No
[2020-10-02 17:02] LABS: Alanine Aminotransferase 30 U/L (0-33); Albumin Level 4.3 g/dL (3.5-5.2); Alkaline Phosphatase 59 IU/L (35-105); Anion Gap 13.8 (5-19); Aspartate Amino Transferase 15 U/L (0-32); Blood Urea Nitrogen 13 mg/dL (6-20); Calcium 9.1 mg/dL (8.5-10.5); Carbon Dioxide 25 mmol/L (22-29); Chloride 103 mmol/L (98-107); Globulin 2.7 g/dL (1.3-4.6); Glomerular Filtration Rate 44.5 mL/min (90-130); Glucose 157 mg/dL (65-115); Lactate (Lactic Acid level) 2.2 mmol/L (0.5-2.2); Magnesium 1.8 mg/dL (1.7-2.3); Osmolality Calculated 289 mOsm/kg (285-295); Potassium 3.8 mmol/L (3.5-5.1); Sodium 138 mmol/L (136-145); Total Bilirubin 0.3 mg/dL (0.15-1.2)
--- NOTE | 2020-10-02 17:33 | W.ED.ABDPA2 ---
HPI - Abdominal Pain General: Chief Complaint: Abdominal Pain Stated Complaint: LOW ABD PAIN, R FLANK PAIN Time Seen by Provider: 10/02/20 15:50 History of Present Illness: HPI narrative: 45-year-old female comes in with right flank pain.Is been worse since 4-5 IM. The patient was here on 09/26/2020 with abdominal pain. She was found to have a 5 mm kidney stone on the right. Patient did see Dr. Amaro on . She is scheduled to have a renal ultrasound as they found a mass on her kidney. Patient states she feels like she has to pee all the time. She continues to have pain or burning with urination. She has not noticed any blood in the urine. She had a little bit of nausea but no vomiting. She does have a history of chronic diarrhea secondary to IBS. Though the patient has been having pain she stated that she has been too stubborn to take her hydrocodone/acetaminophen. Patient states that she was told she is not to take ibuprofen by her doctor. MD elicited complaint: abdominal pain and flank pain (Right flank pain) Pertinent past history: kidney stones Onset (ago): hour(s) (Pain started 4-5 AM) Pain Consistency: constant Location: RUQ, RLQ and R flank Severity: similar to previous episodes Quality: stabbing and sharp Exacerbating factors: nothing Relieving factors: other (Patient did not take her pain medicine.) Context: history of similar episodes (09/26/2020 found to have a kidney stone.) Associated Symptoms: Reports diarrhea (Chronic IBS), dysuria and nausea; Denies chills, fever(s), hematuria and vomiting Review of Systems Const: Denies: fever(s), chills, body aches, change in appetite, change in weight, night sweats or diaphoresis Card: Denies: chest pain, palpitations, edema or dyspnea on exertion Resp: Denies: dyspnea, productive cough, non-productive cough, wheezing, pain on inspiration or chest congestion GI: Reports: abdominal pain, nausea and diarrhea (Chronic IBS); Denies: vomiting : Reports: flank pain, difficulty voiding, dysuria, urinary urgency and oliguria; Denies: hematuria Musc: Reports: back pain; Denies: neck pain or extremity pain Neuro: Denies: difficulty walking, dizziness or vertigo PFSH ED PFSH: Medical History delivery delivered X 2 Surgical History H/O tubal ligation H/O: hysterectomy Family History Father , AT AGE 49 Esophageal varices with bleeding Mother , AT AGE 66 Cirrhosis of liver Social History Smoking and tobacco status: never smoked Second hand smoke exposure: Yes Smoking risk assessment/counseling performed?: Yes Tobacco counseling given: counseling >3 minutes Alcohol intake: never Marital status: Current occupational status: disabled History of recent travel: No Physical Exam Const: COMMON NORMALS: patient oriented x3 and alert GENERAL APPEARANCE: not lethargic ORIENTATION/CONSCIOUSNESS: Yes oriented to person, Yes oriented to place and Yes oriented to time; not lethargic HENMT: COMMON NORMALS: normocephalic, atraumatic and moist oral mucous membranes HEAD & SCALP: normal to inspection, normocephalic and atraumatic Eye: COMMON NORMALS: Equal, round and reactive pupils present, EOMs intact bilaterally, conjunctivae normal and no scleral icterus GENERAL EYE: appearance normal, both eyes and all related structures and normal light reflex CONJUNCTIVA: Yes conjunctivae normal PUPIL: Yes Equal, round and reactive pupils present DIRECT OPHTHALMOSCOPY: Yes normal light reflex Neck/C-Spine: COMMON NORMALS: full ROM, supple and no meningeal signs Resp: COMMON NORMALS: normal respiratory effort, No retractions, No use of accessory muscles and clear to auscultation bilaterally EFFORT & INSPECTION: Yes able to speak in complete sentences, Yes symmetric chest movement and No respiratory distress AUSCULTATION: clear to auscultation bilaterally, no crackles, no rales, no rhonchi and no wheezes Cardio: COMMON NORMALS: regular rate, regular rhythm, No gallops present (Cardio), No clicks present (Cardio), No murmurs present (Cardio) and No rub (Cardio) RATE: regular rate RHYTHM: regular rhythm GI: COMMON NORMALS: Normal to inspection, nondistended, normoactive bowel sounds present, Soft to palpation and no masses INSPECTION: Yes normal to inspection and No abdominal distension PALPATION: Yes Soft to palpation, No Guarding due to palpation present (GI) and No Rebound tenderness present : BLADDER/KIDNEY EXAM: Yes CVA tenderness on the right Back/Pelvis: GENERAL BACK: Yes CVA tenderness Extremity: COMMON NORMALS: normal to inspection, full ROM and no calf tenderness Neuro: COMMON NORMALS: patient oriented x3, moves all extremities, no focal motor deficits and gait normal SENSORIUM/ORIENTATION: Yes alert, Yes oriented to person, Yes oriented to place, Yes oriented to time, No Orientation impaired, No lethargic, No somnolent and No obtunded MENINGEAL SIGNS: Yes no meningeal signs Course Vital Signs: Vital signs: Vital Signs Temperature 98.7 F 10/02/20 15:30 Pulse Rate 91 10/02/20 17:37 Respiratory Rate 18 10/02/20 17:37 Blood Pressure 148/86 10/02/20 17:37 Pulse Oximetry 98 10/02/20 17:37 MDM - Abdominal Pain Lab Data: Labs: Lab Results 10/02/20 10/02/20 10/02/20 Range/Units 15:36 16:31 16:31 WBC 12.1 H (4.0-10.0) 10^3/ uL RBC 4.83 (4.1-5.3) 10^6/u L Hgb 13.8 (11.5-15.3) g/dL Hct 41.7 (37.0-47.0) % MCV 86.3 (81-99) fL MCH 28.6 (28.0-34.0) pg MCHC 33.1 (30.0-36.0) g/dL RDW 12.6 (12.1-15.1) % Plt Count 353 (130-400) 10^3/c mm MPV 10.0 (7.4-10.4) fL Neut % (Auto) 69.8 % Lymph % (Auto) 20.2 % [place] % (Auto) 7.1 % Eos % (Auto) 1.9 % Baso % (Auto) 0.4 % Neut # (Auto) 8.44 H (1.8-7.7) 10^3/u L Lymph # (Auto) 2.4 (0.8-4.8) 10^3/u L [place] # (Auto) 0.9 (0.2-0.9) 10^3/u L Eos # (Auto) 0.2 (0.0-0.8) 10^3/u L Baso # (Auto) 0.1 (0.0-0.1) 10^3/u L Nucleated RBC % (a uto) 0 % Nucleated RBCs # 0.0 /100WBC Sodium 138 (136-145) mmol/L Potassium 3.8 (3.5-5.1) mmol/L Chloride 103 (98-107) mmol/L Carbon Dioxide 25 (22-29) mmol/L Anion Gap 13.8 (5-19) BUN 13 (6-20) mg/dL Creatinine 1.3 H (0.5-0.9) mg/dL GFR Calculation 44.5 L (90-130) mL/min Glucose 157 H (65-115) mg/dL Calculated Osmolal ity 289 (285-295) mOsm/k g Lactate (0.5-2.2) mmol/L Calcium 9.1 (8.5-10.5) mg/dL Magnesium 1.8 (1.7-2.3) mg/dL Total Bilirubin 0.3 (0.15-1.2) mg/dL AST 15 (0-32) U/L ALT 30 (0-33) U/L Alkaline Phosphata se 59 (35-105) IU/L Total Protein 7.0 (6.6-8.7) g/dL Albumin 4.3 (3.5-5.2) g/dL Globulin 2.7 (1.3-4.6) g/dL Urine Color Yellow (Yellow) Urine Appearance Clear (CLEAR) Urine pH 5 (5-7) Ur Specific Gravit y 1.025 (1.005-1.030) Urine Protein Neg (Negative) Urine Glucose (UA) Norm (Normal) Urine Ketones Negative (Negative) Urine Blood 2+ H (Negative) Urine Nitrate Negative (Negative) Urine Bilirubin Neg (Negative) Urine Urobilinogen Norm (Negative) mg/dL Ur Leukocyte Treva ase Negative (Negative) Urine RBC 5-10 H (0-2) /hpf Urine WBC Rare (0-5) /hpf Ur Squamous Epith Cells 0-4 H (0-5) /hpf Amorphous Sediment Not Reportable Urine Bacteria Trace (NONE) /hpf Urine Mucus 1+ /hpf 10/02/20 Range/Units 16:31 WBC (4.0-10.0) 10^3/ uL RBC (4.1-5.3) 10^6/u L Hgb (11.5-15.3) g/dL Hct (37.0-47.0) % MCV (81-99) fL MCH (28.0-34.0) pg MCHC (30.0-36.0) g/dL RDW (12.1-15.1) % Plt Count (130-400) 10^3/c mm MPV (7.4-10.4) fL Neut % (Auto) % Lymph % (Auto) % [place] % (Auto) % Eos % (Auto) % Baso % (Auto) % Neut # (Auto) (1.8-7.7) 10^3/u L Lymph # (Auto) (0.8-4.8) 10^3/u L [place] # (Auto) (0.2-0.9) 10^3/u L Eos # (Auto) (0.0-0.8) 10^3/u L Baso # (Auto) (0.0-0.1) 10^3/u L Nucleated RBC % (a uto) % Nucleated RBCs # /100WBC Sodium (136-145) mmol/L Potassium (3.5-5.1) mmol/L Chloride (98-107) mmol/L Carbon Dioxide (22-29) mmol/L Anion Gap (5-19) BUN (6-20) mg/dL Creatinine (0.5-0.9) mg/dL GFR Calculation (90-130) mL/min Glucose (65-115) mg/dL Calculated Osmolal ity (285-295) mOsm/k g Lactate 2.2 (0.5-2.2) mmol/L Calcium (8.5-10.5) mg/dL Magnesium (1.7-2.3) mg/dL Total Bilirubin (0.15-1.2) mg/dL AST (0-32) U/L ALT (0-33) U/L Alkaline Phosphata se (35-105) IU/L Total Protein (6.6-8.7) g/dL Albumin (3.5-5.2) g/dL Globulin (1.3-4.6) g/dL Urine Color (Yellow) Urine Appearance (CLEAR) Urine pH (5-7) Ur Specific Gravit y (1.005-1.030) Urine Protein (Negative) Urine Glucose (UA) (Normal) Urine Ketones (Negative) Urine Blood (Negative) Urine Nitrate (Negative) Urine Bilirubin (Negative) Urine Urobilinogen (Negative) mg/dL Ur Leukocyte Treva ase (Negative) Urine RBC (0-2) /hpf Urine WBC (0-5) /hpf Ur Squamous Epith Cells (0-5) /hpf Amorphous Sediment Urine Bacteria (NONE) /hpf Urine Mucus /hpf Discharge Plan Discharge Patient Disposition: Home Clinical Impression: Right distal ureteral calculus Condition: Stable Prescriptions: No Action lisinopril 20 mg tablet 20 mg PO QAM RF: 0 amlodipine 10 mg tablet 10 mg PO QAM RF: 0 tizanidine 4 mg capsule 4 mg PO TID PRN (Reason: Muscle Spasm) RF: 0 fenofibrate nanocrystallized 145 mg tablet 145 mg PO QAM RF: 0 propranolol 20 mg tablet 10 mg PO BID PRN (Reason: anxiety) Qty: 60 RF: 2 prazosin 5 mg capsule 10 mg PO BEDTIME Qty: 60 RF: 2 metformin 500 mg tablet 500 mg PO BID RF: 0 levocetirizine [Xyzal] 5 mg tablet 5 mg PO QAM RF: 0 azelastine 137 mcg (0.1 %) aerosol,spray 2 spray intranasal BID RF: 0 aspirin 81 mg Tablet,Delayed Release (Dr/Ec) 81 mg PO QAM RF: 0 pantoprazole [Protonix] 40 mg Tablet,Delayed Release (Dr/Ec) 40 mg PO QAM RF: 0 Tylenol Extra Strength 500 mg tablet 1,000 mg PO PRN RF: 0 sumatriptan succinate 50 mg tablet 50 mg PO PRN RF: 0 aripiprazole [Abilify] 2 mg tablet 2 mg PO QAM RF: 0 hydrocodone-acetaminophen 5-325 mg tablet 1 tab PO Q6H PRN (Reason: pain) Qty: 20 RF: 0 ondansetron HCl [Zofran] 4 mg tablet 4 mg PO Q6H PRN (Reason: nausea and vomiting) Qty: 15 RF: 0 tamsulosin 0.4 mg capsule 0.4 mg PO DAILY Qty: 20 RF: 0 Discharge Orders: Discharge ED (Routine); Ordered 10/02/20 Ordered By: John Shin Referrals: Amada Rivers FNP [Primary Care Provider] - Discharge Diet: Advance as tolerated Discharge Activity: Resume usual activity Patient Instructions: Opioid Safety Activity Restrictions/Additional Instructions: Increase noncaffeine/nonalcoholic fluids. Please take your pain medicines as prescribed. Please take all of your other medications as prescribed. Follow-up with Dr. Amaro as scheduled for kidney ultrasound. Coding Level of Care Code ED Archeologist for [employer] Fwd Exam Comprehensive
[2020-10-02 17:37] VITALS: BP 148/86; PULSE 91; RESP 18; O2SAT 98
== END 2020-10-02 17:38 | disposition home or self-care (01) ==
PROVIDERS: Emergency Provider Emergency Medicine; PCP Nurse Practitioner Family
DX: N20.1 Calculus of ureter (principal); Z79.82 Long term (current) use of aspirin; Z79.84 Long term (current) use of oral hypoglycemic drugs; Z77.22 Contact with and (suspected) exposure to environmental tobacco smoke (acute) (chronic)
CPT/HCPCS: 80053; 81001; 83605; 83735; 85025; 96361; 96374; 96375; 99284; J2270; J2405; J7030

== ENCOUNTER 2020-10-05 09:08 | Outpatient (CLI) | payer MEDICAID, SELFPAY ==
--- NOTE | 2020-10-05 09:15 | US_ITS ---
WS: [id number] ULTRASOUND RENAL TECHNIQUE: Ultrasound examination of both kidneys. CLINICAL INFORMATION: CALCULUS OF KIDNEY COMPARISON: CT abdomen pelvis September 26, 2020 FINDINGS: Exam limited due to bowel gas. A few tiny nonobstructing renal parenchymal calculi bilatera lly. RIGHT: Recently described hydronephrosis on the prior CT appears resolved today. Right kidney is normal in size and appearance. Echogenicity: Normal. Cortical thickness: 1.5 cm; Normal. Hydronephrosis: None. Perinephric fluid: None. Right kidney measures: 11.9 cm x 4.9 cm x 6.5 cm. LEFT: Left kidney is normal in size and appearance. Echogenicity: Normal. Cortical thickness: 1.8 cm; Normal. Hydronephrosis: None. Perinephric fluid: None. Left kidney measures: 12.6 cm x 5.2 cm x 8.7 cm. Normal visualized aorta. Normal visualized bladder. US/US renal BI* [id number] IMPRESSION: Limited examination due to bowel gas. 1. No hydronephrosis visualized in either kidney today. 2. Both ureteral jets visualized. 3. A few tiny nonobstructing renal parenchymal calculi bilaterally 4. Renal cysts better evaluated on the prior CT. Suspicious right renal lesion described on CT abdomen pelvis not visualized on this examination 5. Right hydronephrosis appears resolved compared to CT September 26, 2020
--- NOTE | 2020-10-05 10:00 | XR_ITS ---
WS: [id number] KUB, AP view, 10/05/2020 Clinical Data: CALCULUS OF KIDNEY Comparison: KUB, 09/28/2020. Findings: No abnormal intraabdominal masses are seen. There is no dilatated small bowel or evidence of obstruct ion. Again there is a calcification overlying the inferior pole of the left kidney. There are right abdom inal clips and clips in the right upper quadrant. No right renal calculi are seen. There are phleboli ths in the left side of the true pelvis. XR/XR KUB [id number] Impression: Possible calculus overlying left kidney.
== END 2020-10-05 09:09 | disposition home or self-care (01) ==
LOC: US 09:10
PROVIDERS: PCP Nurse Practitioner Family; Visit Provider Urology
DX: N20.0 Calculus of kidney (principal); Q61.02 Congenital multiple renal cysts
CPT/HCPCS: 74018; 76770; 81003

== ENCOUNTER 2020-12-15 11:31 | Outpatient (CLI) | payer MEDICAID, SELFPAY ==
--- NOTE | 2020-12-15 11:37 | XR_ITS ---
WS: [id number] Right knee, 3 views, 12/15/2020 Clinical Data: RIGHT KNEE PAIN Comparison: Right knee, 05/13/2020. Findings: No fractures or dislocations are seen. The joint spaces are normal. The patella is intact. The soft t issues are unremarkable. XR/XR knee RT 3V* [id number] Impression: Negative right knee. Kellgren-Chan Classification: grade 0 (none): definite absence of x-ray twyla nges of osteoarthritis
== END 2020-12-15 11:32 | disposition home or self-care (01) ==
LOC: RAD 11:34
PROVIDERS: PCP Nurse Practitioner Family; Visit Provider Nurse Practitioner Family
DX: M25.561 Pain in right knee (principal)
CPT/HCPCS: 73562

== ENCOUNTER 2021-01-09 13:33 | Outpatient (CLI) | payer MEDICAID, SELFPAY ==
--- NOTE | 2021-01-09 13:40 | MM_ITS ---
WS: [id number] BILATERAL DIGITAL SCREENING MAMMOGRAPHY WITH CAD CLINICAL INFORMATION: SCREENING HISTORY: Screening mammogram. No current complaints. COMPARISON: TECHNIQUE: Bilateral CC and MLO views. FINDINGS: The breasts are composed of heterogeneous fibroglandular density tissue, which can limit the detectio n of small underlying mass lesions. No suspicious mass, asymmetry, calcifications, or architectural d istortion. No evidence of malignancy. MM/[place] [id number] IMPRESSION: BI-RADS: 1-Negative FOLLOW UP: 1 Year Follow-up Recommend return to annual screening mammography.
== END 2021-01-09 13:34 | disposition home or self-care (01) ==
LOC: RADSHAW 13:36
PROVIDERS: PCP Nurse Practitioner Family; Visit Provider Family Medicine
DX: Z12.31 Encounter for screening mammogram for malignant neoplasm of breast (principal)
CPT/HCPCS: 77067

== ENCOUNTER 2021-02-28 15:43 | Outpatient (CLI) | payer MEDICAID, SELFPAY | END 2021-02-28 15:44 | disposition home or self-care (01) | PROVIDERS: PCP Nurse Practitioner Family; Visit Provider Nurse Practitioner Family | DX: R19.7 Diarrhea, unspecified (principal) | CPT/HCPCS: 36415; 86003 ==

== ENCOUNTER 2021-04-11 08:18 | Outpatient (CLI) | payer MEDICAID, SELFPAY ==
--- NOTE | 2021-04-11 08:30 | XR_ITS ---
WS: [id number] Exam: XR chest 2V* [id number] Date/Time of Exam: 04/11/2021 8:30 AM Reason For Exam: COUGH Comparison 06/14/2016. The lungs are fully inflated and clear. Normal cardiomediastinal structures and bony elements. XR/XR chest 2V* [id number] IMPRESSION: 1. No acute cardiopulmonary finding.
== END 2021-04-11 08:19 | disposition home or self-care (01) ==
LOC: RAD 08:20
PROVIDERS: PCP Nurse Practitioner Family; Visit Provider Nurse Practitioner Family
DX: R05.9 Cough, unspecified (principal)
CPT/HCPCS: 71046

== ENCOUNTER 2021-05-06 12:20 | Emergency (ER) | payer MEDICAID, SELFPAY ==
[2021-05-06 12:27] VITALS: BP 182/114; PULSE 76; RESP 17; TEMP 36.5; O2SAT 96; BMI 46.9
[2021-05-06 12:59] VITALS: BP 199/126; PULSE 61; RESP 16; TEMP 37.1; O2SAT 96
--- NOTE | 2021-05-06 13:01 | W.ED.HA ---
Documented by User: Good Jurado MD 05/11/21 23:14 HPI - Headache General: Chief Complaint: Headache Stated Complaint: Headache Time Seen by Provider: 05/06/21 12:24 History of Present Illness: HPI Narrative: Ms. Wang is a 45-year-old lady with significant past medical history of migraines and recurrent sinusitis who presents to the emergency department due to headache. She reports symptoms have been going on for a number of weeks now. She initially had left sinus pain was treated with azithromycin however failed to improve. She now endorses generalized headache, left face and orbital pain, loss of smell, and generalized malaise. No fevers chills. She does have occasional floaters in her vision and mild discomfort with blinking. Overall the course of symptoms has been worsening. Intensity is moderate to severe. No other signs of systemic illness. No other specific known exacerbating or alleviating factors that the patient identifies. Review of Systems General: Reports: 10 or more systems reviewed and unremarkable except in HPI and below PFSH ED PFSH: Medical History delivery delivered X 2 Surgical History H/O tubal ligation H/O: hysterectomy Family History Father , AT AGE 49 Esophageal varices with bleeding Mother , AT AGE 66 Cirrhosis of liver Grandmother Cancer kidney Grandfather AML (acute myeloblastic leukemia) Social History Smoking and tobacco status: never smoked Second hand smoke exposure: Yes Smoking risk assessment/counseling performed?: Yes Tobacco counseling given: counseling >3 minutes Alcohol intake: never Marital status: Current occupational status: disabled History of recent travel: No Physical Exam Narrative: EXAM NARRATIVE: GENERAL/CONSTITUTIONAL - well-appearing. Mildly uncomfortable appearing. Eyes - PERRL, no conjunctival injection. No evidence of entrapment though patient does report pain with EOMs. ENMT - Atraumatic external nose and ears. Moist mucous membranes. Tenderness to percussion and palpation of the sinuses. No intraoral abnormality. NECK - supple. trachea midline CARDIOVASCULAR - regular rate and rhythm. RESPIRATORY -clear to auscultation bilaterally. ABDOMEN/GI - Nontender/Nondistended. MSK - Extremities without obvious deformity or tenderness to palpation SKIN - Warm, Dry NEURO - alert and appropriately oriented. Moves all extremities equally. Course ED course: - Patient was seen and evaluated by me at bedside - Patient placed on cardiac monitors, IV access obtained - Initial evaluation notable for uncomfortable appearance, nontoxic. - Symptom treatment ordered. - Labs notable for no leukocytosis. No other significant abnormality to explain patient's symptoms. -Given patient's reported pain with EOMs CT imaging warranted. - Patient care handed off to overnight ED physician Dr. William pending completion of CT scan and read. Vital Signs: Vital signs: Vital Signs Temperature 98.7 F 05/06/21 12:59 Pulse Rate 64 05/06/21 19:39 Respiratory Rate 16 05/06/21 19:39 Blood Pressure 156/79 05/06/21 19:39 Pulse Oximetry 98 05/06/21 19:39 MDM - Headache Medical Records: Attestation: I reviewed the patient's medical records. Lab Data: Attestation: I reviewed the patient's lab results. Labs: Lab Results 05/06/21 05/06/21 12:50 12:50 WBC 8.1 10^3/uL 10^3/ uL (4.0-10.0) RBC 5.38 10^6/uL H 10 ^6/uL (4.1-5.3) Hgb 15.3 g/dL g/dL (11.5-15.3) Hct 44.3 % % (37.0-47.0) MCV 82.3 fl fl (81-99) MCH 28.4 pg pg (28.0-34.0) MCHC 34.5 g/dL g/dL (30.0-36.0) RDW 12.2 % % (12.1-15.1) Plt Count 320 10^3/cmm 10^3 /cmm (130-400) MPV 10.2 fL fL (7.4-10.4) Neut % (Auto) 57.4 % % Lymph % (Auto) 31.8 % % [place] % (Auto) 7.6 % % Eos % (Auto) 2.2 % % Baso % (Auto) 0.5 % % Neut # (Auto) 4.66 10^3/uL 10^3 /uL (1.8-7.7) Lymph # (Auto) 2.6 10^3/uL 10^3/ uL (0.8-4.8) [place] # (Auto) 0.6 10^3/uL 10^3/ uL (0.2-0.9) Eos # (Auto) 0.2 10^3/uL 10^3/ uL (0.0-0.8) Baso # (Auto) 0.0 10^3/uL 10^3/ uL (0.0-0.1) Nucleated RBC % (a uto) 0 % % Nucleated RBCs # 0.0 /100WBC /100W BC Sodium 140 mmol/L mmol/L (136-145) Potassium 3.7 mmol/L mmol/L (3.5-5.1) Chloride 103 mmol/L mmol/L (98-107) Carbon Dioxide 26 mmol/L mmol/L (22-29) Anion Gap 14.7 (5-19) BUN 8 mg/dL mg/dL (6-20) Creatinine 1.0 mg/dL H mg/dL (0.5-0.9) GFR Calculation 60.2 mL/min L mL/ min (90-130) Glucose 121 mg/dL H mg/dL (65-115) Calculated Osmolal ity 290 mOsm/kg mOsm/ kg (285-295) Calcium 9.2 mg/dL mg/dL (8.5-10.5) Discharge Plan Discharge Patient Disposition: Home Clinical Impression: Sinusitis Qualifiers: Sinusitis location: unspecified location Chronicity: acute Recurrence: recurrent Qualified Code(s): J01.91 - Acute recurrent sinusitis, unspecified Condition: Stable Prescriptions: New Naprosyn 500 mg tablet 500 mg PO BID PRN (Reason: pain) Qty: 20 RF: 0 Augmentin 875-125 mg tablet 1 tab PO BID Qty: 14 RF: 0 No Action amlodipine 10 mg tablet 10 mg PO QAM RF: 0 lisinopril 20 mg tablet 30 mg PO QAM RF: 0 tizanidine 4 mg capsule 4 mg PO TID PRN (Reason: Muscle Spasm) RF: 0 fenofibrate nanocrystallized 145 mg tablet 145 mg PO QAM RF: 0 prazosin 5 mg capsule 10 mg PO BEDTIME Qty: 60 RF: 2 metformin 500 mg tablet 500 mg PO BID RF: 0 levocetirizine [Xyzal] 5 mg tablet 5 mg PO QAM RF: 0 azelastine 137 mcg (0.1 %) aerosol,spray 2 spray intranasal BID RF: 0 aspirin 81 mg Tablet,Delayed Release (Dr/Ec) 81 mg PO QAM RF: 0 pantoprazole [Protonix] 40 mg Tablet,Delayed Release (Dr/Ec) 40 mg PO QAM RF: 0 Tylenol Extra Strength 500 mg tablet 1,000 mg PO PRN RF: 0 sumatriptan succinate 50 mg tablet 50 mg PO PRN RF: 0 aripiprazole [Abilify] 2 mg tablet 2 mg PO QAM RF: 0 Discharge Orders: Discharge ED (Routine); Ordered 05/06/21 Ordered By: Paula William Referrals: Amada Rivers FNP [Primary Care Provider] - Joel Eaton MD [Physician] - 1-3 days Discharge Diet: Advance as tolerated Discharge Activity: Resume usual activity Patient Instructions: Sinusitis (ED) Coding Level of Care Code ED Laminating Machine Offbearer for [place] [facility] Documented by User: Paula William MD 05/06/21 18:32 HPI - Headache General: Chief Complaint: Headache Stated Complaint: Headache Time Seen by Provider: 05/06/21 12:24 PFSH ED PFSH: Medical History delivery delivered X 2 Surgical History H/O tubal ligation H/O: hysterectomy Family History Father , AT AGE 49 Esophageal varices with bleeding Mother , AT AGE 66 Cirrhosis of liver Grandmother Cancer kidney Grandfather AML (acute myeloblastic leukemia) Social History Smoking and tobacco status: never smoked Second hand smoke exposure: Yes Smoking risk assessment/counseling performed?: Yes Tobacco counseling given: counseling >3 minutes Alcohol intake: never Marital status: Current occupational status: disabled History of recent travel: No Course Vital Signs: Vital signs: Vital Signs Temperature 98.7 F 05/06/21 12:59 Pulse Rate 64 05/06/21 19:39 Respiratory Rate 16 05/06/21 19:39 Blood Pressure 156/79 05/06/21 19:39 Pulse Oximetry 98 05/06/21 19:39 MDM - Headache MDM Narrative: Medical decision making narrative: Patient presents here with sinusitis we'll place on Augmentin get her follow-up with ENT she is stable for discharge she is to follow-up with PCP and return if worsening. Lab Data: Labs: Lab Results 05/06/21 05/06/21 12:50 12:50 WBC 8.1 10^3/uL 10^3/ uL (4.0-10.0) RBC 5.38 10^6/uL H 10 ^6/uL (4.1-5.3) Hgb 15.3 g/dL g/dL (11.5-15.3) Hct 44.3 % % (37.0-47.0) MCV 82.3 fl fl (81-99) MCH 28.4 pg pg (28.0-34.0) MCHC 34.5 g/dL g/dL (30.0-36.0) RDW 12.2 % % (12.1-15.1) Plt Count 320 10^3/cmm 10^3 /cmm (130-400) MPV 10.2 fL fL (7.4-10.4) Neut % (Auto) 57.4 % % Lymph % (Auto) 31.8 % % [place] % (Auto) 7.6 % % Eos % (Auto) 2.2 % % Baso % (Auto) 0.5 % % Neut # (Auto) 4.66 10^3/uL 10^3 /uL (1.8-7.7) Lymph # (Auto) 2.6 10^3/uL 10^3/ uL (0.8-4.8) [place] # (Auto) 0.6 10^3/uL 10^3/ uL (0.2-0.9) Eos # (Auto) 0.2 10^3/uL 10^3/ uL (0.0-0.8) Baso # (Auto) 0.0 10^3/uL 10^3/ uL (0.0-0.1) Nucleated RBC % (a uto) 0 % % Nucleated RBCs # 0.0 /100WBC /100W BC Sodium 140 mmol/L mmol/L (136-145) Potassium 3.7 mmol/L mmol/L (3.5-5.1) Chloride 103 mmol/L mmol/L (98-107) Carbon Dioxide 26 mmol/L mmol/L (22-29) Anion Gap 14.7 (5-19) BUN 8 mg/dL mg/dL (6-20) Creatinine 1.0 mg/dL H mg/dL (0.5-0.9) GFR Calculation 60.2 mL/min L mL/ min (90-130) Glucose 121 mg/dL H mg/dL (65-115) Calculated Osmolal ity 290 mOsm/kg mOsm/ kg (285-295) Calcium 9.2 mg/dL mg/dL (8.5-10.5) Imaging Data^: Other CT: Attestation: I personally reviewed and interpreted this imaging study as follows: Radiologist's impression: [address] [address] [address] Scan Report Signed Patient: Celine Melgar Unit #: [id number] : 1975 Age/Sex: 45 / F ADM Date: 05/06/21 Loc: ER Room/Bed: Attending Dr: Ordering Provider/Ordering MD: Good Jurado MD Date of Service: 05/06/21 Procedure(s): CT facial bones w [facility] [address] Accession Number(s): [id number] Report Number: [id number] PROCEDURE INFORMATION: Exam: CT Maxillofacial With Contrast Exam date and time: 05/06/2021 3:20 PM Age: 45 years old Clinical indication: Eye pain; Left; Additional info: Facial pain, eye pain TECHNIQUE: Imaging protocol: Computed tomography images of the face with intravenous contrast. Radiation optimization: All CT scans at this facility use at least one of these dose optimization techniques: automated exposure control; mA and/or kV adjustment per patient size (includes targeted exams where dose is matched to clinical indication); or iterative reconstruction. Contrast material: OMNI 300; Contrast volume: 95 ml; Contrast route: INTRAVENOUS (IV); COMPARISON: [place]* [id number] 11/25/2016 8:23 PM RADIATION DOSE METRICS: Total DLP (mGy-cm): 754.45 FINDINGS: Orbital cavity: Bilateral orbits are unremarkable. The globes are symmetric. The extraocular muscles are within normal limits. The optic nerves appear unremarkable. No intraconal or extraconal mass, edema, or fluid collection identified. Bones/joints: No acute fracture. Paranasal sinuses: Complete opacification of the bilateral maxillary sinuses. Opacification of the left anterior ethmoid sinuses. Mucoperiosteal thickening in the midline sphenoid sinus and in the left frontal sinus. Soft tissues: Unremarkable. CT/CT facial bones w con [id number] IMPRESSION: 1. Severe paranasal sinus disease of the bilateral maxillary and left anterior ethmoid sinuses. Mild disease of the midline sphenoid and left frontal sinuses. Sinus disease appears more severe compared to prior study of 11/25/2016. 2. No acute abnormality of the orbits. Radiation Dose CTDIVOL = (mGy): DLP = 754.45 (mGy-cm) Dictated By: Panda Fischer MD Signed By: Panda Fischer MD Signed Date/Time: 05/06/211808 Discharge Plan Discharge Patient Disposition: Home Clinical Impression: Sinusitis Qualifiers: Sinusitis location: unspecified location Chronicity: acute Recurrence: recurrent Qualified Code(s): J01.91 - Acute recurrent sinusitis, unspecified Condition: Stable Prescriptions: New Naprosyn 500 mg tablet 500 mg PO BID PRN (Reason: pain) Qty: 20 RF: 0 Augmentin 875-125 mg tablet 1 tab PO BID Qty: 14 RF: 0 No Action amlodipine 10 mg tablet 10 mg PO QAM RF: 0 lisinopril 20 mg tablet 30 mg PO QAM RF: 0 tizanidine 4 mg capsule 4 mg PO TID PRN (Reason: Muscle Spasm) RF: 0 fenofibrate nanocrystallized 145 mg tablet 145 mg PO QAM RF: 0 prazosin 5 mg capsule 10 mg PO BEDTIME Qty: 60 RF: 2 metformin 500 mg tablet 500 mg PO BID RF: 0 levocetirizine [Xyzal] 5 mg tablet 5 mg PO QAM RF: 0 azelastine 137 mcg (0.1 %) aerosol,spray 2 spray intranasal BID RF: 0 aspirin 81 mg Tablet,Delayed Release (Dr/Ec) 81 mg PO QAM RF: 0 pantoprazole [Protonix] 40 mg Tablet,Delayed Release (Dr/Ec) 40 mg PO QAM RF: 0 Tylenol Extra Strength 500 mg tablet 1,000 mg PO PRN RF: 0 sumatriptan succinate 50 mg tablet 50 mg PO PRN RF: 0 aripiprazole [Abilify] 2 mg tablet 2 mg PO QAM RF: 0 Discharge Orders: Discharge ED (Routine); Ordered 05/06/21 Ordered By: Paula William Referrals: Amada Rivers FNP [Primary Care Provider] - Joel Eaton MD [Physician] - 1-3 days Discharge Diet: Advance as tolerated Discharge Activity: Resume usual activity Patient Instructions: Sinusitis (ED) Coding Level of Care Code ED Laminating Machine Offbearer for [place]
--- NOTE | 2021-05-06 13:05 | PC.NURSE ---
Pt reports she took 1000mg Tylenol about 40 minutes prior to arrival, Dr. Mercado advised
[2021-05-06 13:13] LABS: Basophils % 0.5 %; Eosinophils # 0.2 10^3/uL (0.0-0.8); Eosinophils % 2.2 %; Hematocrit 44.3 % (37.0-47.0); Hemoglobin 15.3 g/dL (11.5-15.3); Lymphocytes # 2.6 10^3/uL (0.8-4.8); Lymphocytes % 31.8 %; Mean Corpuscular HGB Conc 34.5 g/dL (30.0-36.0); Mean Corpuscular Hemoglobin 28.4 pg (28.0-34.0); Mean Corpuscular Volume 82.3 fl (81-99); Mean Platelet Volume 10.2 fL (7.4-10.4); Monocytes # 0.6 10^3/uL (0.2-0.9); Monocytes % 7.6 %; Neutrophils # 4.66 10^3/uL (1.8-7.7); Neutrophils % 57.4 %; Nucleated Red Blood Cells % 0 %; Platelet Count 320 10^3/cmm (130-400); Red Blood Count 5.38 10^6/uL (4.1-5.3); Red Cell Distribution Width 12.2 % (12.1-15.1); White Blood Count 8.1 10^3/uL (4.0-10.0)
[2021-05-06 13:52] LABS: Anion Gap 14.7 (5-19); Blood Urea Nitrogen 8 mg/dL (6-20); Calcium 9.2 mg/dL (8.5-10.5); Carbon Dioxide 26 mmol/L (22-29); Chloride 103 mmol/L (98-107); Glomerular Filtration Rate 60.2 mL/min (90-130); Glucose 121 mg/dL (65-115); Osmolality Calculated 290 mOsm/kg (285-295); Potassium 3.7 mmol/L (3.5-5.1); Sodium 140 mmol/L (136-145)
[2021-05-06] MEDS: metoclopramide 5 mg/mL SDV 2 mL 10 MG IVP (14:26)
[2021-05-06] MEDS: diphenhydrAMINE 50 mg/mL SDV 1mL 25 MG IVP (14:26)
[2021-05-06] MEDS: ketorolac 30 mg/mL INJ 15 MG IVP (14:27)
[2021-05-06] MEDS: sodium chloride 0.9% 1,000 ML 999 ML IV (14:34)
--- NOTE | 2021-05-06 15:20 | CTR_ITS ---
PROCEDURE INFORMATION: Exam: CT Maxillofacial With Contrast Exam date and time: 05/06/2021 3:20 PM Age: 45 years old Clinical indication: Eye pain; Left; Additional info: Facial pain, eye pain TECHNIQUE: Imaging protocol: Computed tomography images of the face with intravenous contrast. Radiation optimization: All CT scans at this facility use at least one of these dose optimization techniques: automated exposure control; mA and/or kV adjustment per patient size (includes targeted exams where dose is matched to clinical indication); or iterative reconstruction. Contrast material: OMNI 300; Contrast volume: 95 ml; Contrast route: INTRAVENOUS (IV); COMPARISON: [place] IV* [id number] 11/25/2016 8:23 PM RADIATION DOSE METRICS: Total DLP (mGy-cm): 754.45 FINDINGS: Orbital cavity: Bilateral orbits are unremarkable. The globes are symmetric. The extraocular muscles are within normal limits. The optic nerves appear unremarkable. No intraconal or extraconal mass, edema, or fluid collection identified. Bones/joints: No acute fracture. Paranasal sinuses: Complete opacification of the bilateral maxillary sinuses. Opacification of the left anterior ethmoid sinuses. Mucoperiosteal thickening in the midline sphenoid sinus and in the left frontal sinus. Soft tissues: Unremarkable. CT/CT facial bones w con [id number] IMPRESSION: 1. Severe paranasal sinus disease of the bilateral maxillary and left anterior ethmoid sinuses. Mild disease of the midline sphenoid and left frontal sinuses. Sinus disease appears more severe compared to prior study of 11/25/2016. 2. No acute abnormality of the orbits. Radiation Dose CTDIVOL = (mGy): DLP = 754.45 (mGy-cm)
[2021-05-06] MEDS: iohexol 300 mg/mL 100 mL Btl IV (16:15)
[2021-05-06 17:19] VITALS: RESP 18; O2SAT 98
[2021-05-06] MEDS: morphine 4 mg/mL SDV 1 mL IVP (17:19)
[2021-05-06] MEDS: magnesium sulfate premix 2 GM/50 ML PIGGYBACK IV (17:22)
[2021-05-06 17:31] VITALS: BP 152/79; PULSE 70; RESP 18; O2SAT 97
--- NOTE | 2021-05-06 18:24 | PC.NURSE ---
pt requesting and given a glass of water.
--- NOTE | 2021-05-06 19:16 | PC.NURSE ---
Assumed care of this pt at 1900.
[2021-05-06 19:39] VITALS: BP 156/79; PULSE 64; RESP 16; O2SAT 98
--- NOTE | 2021-05-08 11:22 | DCPLANNER ---
brand development manager had message to schedule a follow up appointment for patient with Dr. Eaton, ENT. brand development manager emailed patients information to both Lina and Soledad at [facility] General Surgery / ENT clinic. Patients information will be printed and reviewed. Clinic will call patient with appointment information.
--- NOTE | 2021-05-09 16:04 | DCPLANNER ---
print production manager was notified by the ENT clinic, that clinic called patient to schedule an appointment. Patient stated that she was going to follow up with Dr. Anaya.
== END 2021-05-06 19:23 | disposition home or self-care (01) ==
PROVIDERS: Emergency Medicine; Emergency Provider Emergency Medicine; PCP Nurse Practitioner Family
DX: J01.91 Acute recurrent sinusitis, unspecified (principal); Z79.84 Long term (current) use of oral hypoglycemic drugs; Z79.82 Long term (current) use of aspirin; Z77.22 Contact with and (suspected) exposure to environmental tobacco smoke (acute) (chronic)
CPT/HCPCS: 70487; 80048; 85025; 96365; 96375; 99284; J1200; J1885; J2270; J2765; J3475; J7030; Q9967

== ENCOUNTER 2021-05-29 08:36 | Outpatient (CLI) | payer MEDICAID, SELFPAY ==
[2021-05-29 08:58] VITALS: BP 145/97; PULSE 66; RESP 20; TEMP 36.6; O2SAT 97; BMI 43.0
[2021-05-29 09:43] VITALS: BP 143/95; PULSE 60; RESP 18; TEMP 36.8; O2SAT 95
[2021-05-29 10:44] VITALS: BP 146/96; PULSE 66; RESP 19; TEMP 36.8; O2SAT 98
== END 2021-05-29 08:37 | disposition home or self-care (01) ==
LOC: OPS 08:37
PROVIDERS: PCP Nurse Practitioner Family; Visit Provider Nurse Practitioner Family
DX: U07.1 COVID-19 (principal)
CPT/HCPCS: 96365

== ENCOUNTER 2021-06-23 12:52 | Outpatient (CLI) | payer MEDICAID, SELFPAY ==
[2021-06-23 14:20] LABS: Hematocrit 42.8 % (37.0-47.0); Hemoglobin 14.1 g/dL (11.5-15.3); Mean Corpuscular HGB Conc 32.9 g/dL (30.0-36.0); Mean Corpuscular Hemoglobin 28.3 pg (28.0-34.0); Mean Corpuscular Volume 85.8 fl (81-99); Mean Platelet Volume 9.8 fL (7.4-10.4); Platelet Count 308 10^3/cmm (130-400); Red Blood Count 4.99 10^6/uL (4.1-5.3); Red Cell Distribution Width 13.1 % (12.1-15.1); White Blood Count 10.2 10^3/uL (4.0-10.0)
[2021-06-23 14:40] LABS: Blood Urea Nitrogen 11 mg/dL (6-20); Calcium 9.2 mg/dL (8.5-10.5); Carbon Dioxide 23 mmol/L (22-29); Chloride 103 mmol/L (98-107); Glomerular Filtration Rate 77.9 mL/min (90-130); Glucose 110 mg/dL (65-115); Osmolality Calculated 288 mOsm/kg (285-295); Sodium 139 mmol/L (136-145)
[2021-06-23 15:16] LABS: Absolute Eosinophils 0.4 10^3/cmm (0.0-0.7); Absolute Neutrophil 5.1 10^3/cmm (1.4-6.5); Absolute Segmented Neutrophil 5.1 10/cmm (1.6-7.1); Eosinophils 4 %; Lymphocytes 26 %; Lymphocytes Absolute 3.3 10^3/cmm (1.2-3.4); Monocytes Absolute 1.4 10^3/cmm (0.1-0.6); Platelet Estimate Normal (Normal); Segmented Neutrophils 50 %; Total Cells Counted 100 (0-100)
--- NOTE | 2021-06-23 16:30 | ECG_ITS ---
[facility] Test Date: 2021-06-23 Pat Name: Celine Melgar Department: Room: Gender: Female [employer]: : [id number] Requested By: Dimas Rodriguez Order Number: [id number] Doris MD: Norma Hogue M.D. Measurements Intervals [place] Rate: 63 P: 37 AR: 176 QRS: 26 QRSD: 106 T: 31 QT: 398 QTc: 408 Interpretive Statements SINUS RHYTHM Compared to ECG 07/15/2020 11:54:46 No significant changes Electronically Signed On 06-23-2021 17:58:22 INVENTORY SPECIALIST MANAGER by Norma Hogue M.D. [id number]
== END 2021-06-23 12:53 | disposition home or self-care (01) ==
LOC: LAB 12:54
PROVIDERS: PCP Nurse Practitioner Family; Visit Provider Specialist
DX: Z01.810 Encounter for preprocedural cardiovascular examination (principal); J32.0 Chronic maxillary sinusitis
CPT/HCPCS: 36415; 80048; 85007; 85027; 93005

== ENCOUNTER 2021-09-12 13:00 | Emergency (ER) | payer MEDICAID, SELFPAY ==
[2021-09-12 13:30] VITALS: BP 170/67; PULSE 68; RESP 28; TEMP 36.6; O2SAT 97; BMI 46.5
[2021-09-12 14:00] VITALS: BP 170/67; PULSE 68; RESP 18; O2SAT 97
--- NOTE | 2021-09-12 14:04 | ED_ITS ---
Documented by User: MORENO Pizarro 09/13/21 11:12 HPI - Abdominal Pain General: Chief Complaint: Abdominal Pain Stated Complaint: BACK PAIN Time Seen by Provider: 09/12/21 14:00 History of Present Illness: Patient is a 46-year-old female comes to the ED wi th right flank pain. Pain started at 2 AM this morning. She is also had some nausea and vomiting as well. She has a history of kidney stones and says this is similar to her past kidney stones. Pain is rated a 10 out of 10. Denies any improving or worsening factors. Endorses feeling like she has to urinate but is unable to. Associated Symptoms: Denies chills, constipation, diarrhea, dysuria, fever(s), hematochezia, hematuria, nausea and vomiting Review of Systems Const: Denies: fever(s), chills or fatigue Eyes: Denies: change in vision or eye discomfort ENMT: Denies: throat pain, odynophagia, nasal discharge or nasal congestion Card: Denies: chest pain, palpitations, edema, swelling of feet/ankles, dyspnea on exertion or orthopnea Resp: Denies: dyspnea, productive cough or non-productive cough GI: Denies: abdominal pain, nausea, vomiting, diarrhea, constipation or hematochezia : Reports: flank pain (right flank); Denies: dysuria or hematuria Musc: Denies: neck pain, back pain or extremity swelling Skin/Breast: Denies: rash or new lesions Neuro: Denies: headache(s), numbness in extremities or weakness in extremities PFS ED PFSH: Medical History delivery delivered X 2 Surgical History H/O tubal ligation H/O: hysterectomy Family History Father , AT AGE 49 Esophageal varices with bleeding Mother , AT AGE 66 Cirrhosis of liver Grandmother Cancer kidney Grandfather AML (acute myeloblastic leukemia) Social History Smoking and tobacco status: never smoked Second hand smoke exposure: Yes Smoking risk assessment/counseling performed?: Yes Tobacco counseling given: counseling >3 minutes Alcohol intake: never Marital status: Current occupational status: disabled History of recent travel: No Physical Exam Const: COMMON NORMALS: patient oriented x3 and alert GENERAL APPEARANCE: cooperative and comfortable HENMT: COMMON NORMALS: normocephalic HEAD & SCALP: normocephalic MOUTH: Normal oral and palatal mucosa present THROAT: posterior oropharynx normal and uvula midline Neck/C-Spine: COMMON NORMALS: supple GENERAL: Yes normal visual inspection Resp: COMMON NORMALS: normal respiratory effort, No retractions, No use of accessory muscles and clear to auscultation bilaterally AUSCULTATION: clear to auscultation bilaterally Cardio: COMMON NORMALS: regular rate, regular rhythm, S1 normal heart sound present, S2 normal heart sound present, No gallops present (Cardio), No clicks present (Cardio), No murmurs present (Cardio) and Peripheral pulses 2+ throughout RATE: regular rate RHYTHM: regular rhythm HEART SOUNDS: S1 normal heart sound present and S2 normal heart sound present PERIPHERAL PULSES: Peripheral pulses 2+ throughout GI: COMMON NORMALS: Normal to inspection, nondistended, normoactive bowel sounds present, Soft to palpation, non-tender and no masses PALPATION: Yes Soft to palpation : BLADDER/KIDNEY EXAM: Yes CVA tenderness on the right Back/Pelvis: GENERAL BACK: Yes CVA tenderness Extremity: COMMON NORMALS: normal to inspection Neuro: COMMON NORMALS: patient oriented x3 SENSORIUM/ORIENTATION: Yes alert GAIT: Yes Normal gait present Skin: GENERAL SKIN EXAM: dry skin Course Vital Signs: Vital signs: Vital Signs Temperature 97.8 F 09/12/21 13:30 Pulse Rate 68 09/12/21 14:00 Respiratory Rate 26 H 09/12/21 15:35 Blood Pressure 170/67 09/12/21 14:00 Pulse Oximetry 97 09/12/21 14:00 MDM - Abdominal Pain Medical Decision Making Patient is a 46-year-old female comes to the ED with right flank pain. Vitals are stable. White blood cell count 10.6 the rest of CBC and CMP were unremarkable. UA showed some red blood cells but no concern for any infection. Abdominal CT showed a 5.5 mm kidney stone in right distal ureter. Patient's pa in was controlled with some IV morphine and then Toradol. She was stable for discharge home I placed order with case management for patient to be referred to Dr. Amaro for follow-up on kidney stone. She was discharged home with a prescription for hydrocodone and naproxen for pain. Return to ED precautions given. Patient understood and agree with plan. Lab Data I reviewed the patient's lab results. : 09/12/21 15:20 09/12/21 15:20 Labs/Radiology: Radiology Impressions Abdomen/Pelvis CT 09/12/21 14:13 IMPRESSION: 1. Moderate RIGHT hydroureteronephrosis secondary to 5.5 mm calcification in the distal ureter. 2. Mild bulge in the contour of the RIGHT kidney. This corresponds to previously described complex cyst in the RIGHT kidney. No increase in size. 3. Prior appendectomy, cholecystectomy and hysterectomy. 4. Hepatic steatosis and hepatomegaly. 5. Stable splenic cyst. Laboratory Results WBC 10.6 10^3/uL (4.0-10.0) H 09/12/21 15:20 RBC 5.17 10^6/uL (4.1-5.3) 09/12/21 15:20 Hgb 14.5 g/dL (11.5-15.3) 09/12/21 15:20 Hct 44.7 % (37.0-47.0) 09/12/21 15:20 MCV 86.5 fl (81-99) 09/12/21 15:20 MCH 28.0 pg (28.0-34.0) 09/12/21 15:20 MCHC 32.4 g/dL (30.0-36.0) 09/12/21 15:20 RDW 12.0 % (12.1-15.1) L 09/12/21 15:20 Plt Count 315 10^3/cmm (130-400) 09/12/21 15:20 MPV 10.7 fL (7.4-10.4) H 09/12/21 15:20 Neut % (Auto) 80.1 % 09/12/21 15:20 Lymph % (Auto) 12.7 % 09/12/21 15:20 Levy % (Auto) 6.1 % 09/12/21 15:20 Eos % (Auto) 0.2 % 09/12/21 15:20 Baso % (Auto) 0.4 % 09/12/21 15:20 Neut # (Auto) 8.48 10^3/uL (1.8-7.7) H 09/12/21 15:20 Lymph # (Auto) 1.3 10^3/uL (0.8-4.8) 09/12/21 15:20 Levy # (Auto) 0.7 10^3/uL (0.2-0.9) 09/12/21 15:20 Eos # (Auto) 0.0 10^3/uL (0.0-0.8) 09/12/21 15:20 Baso # (Auto) 0.0 10^3/uL (0.0-0.1) 09/12/21 15:20 Nucleated RBC % (auto) 0 % 09/12/21 15:20 Nucleated RBCs # 0.0 /100WBC 09/12/21 15:20 Sodium 138 mmol/L (136-145) 09/12/21 15:20 Potassium 3.8 mmol/L (3.5-5.1) 09/12/21 15:20 Chloride 102 mmol/L (98-107) 09/12/21 15:20 Carbon Dioxide 22 mmol/L (22-29) 09/12/21 15:20 Anion Gap 17.8 (5-19) 09/12/21 15:20 BUN 14 mg/dL (6-20) 09/12/21 15:20 Creatinine 1.1 mg/dL (0.5-0.9) H 09/12/21 15:20 GFR Calculation 53.7 mL/min (90-130) L 09/12/21 15:20 Glucose 169 mg/dL (65-115) H 09/12/21 15:20 Calculated Osmolality 290 mOsm/kg (285-295) 09/12/21 15:20 Calcium 9.7 mg/dL (8.5-10.5) 09/12/21 15:20 Total Bilirubin 0.4 mg/dL (0.15-1.2) 09/12/21 15:20 AST 34 U/L (0-32) H 09/12/21 15:20 ALT 38 U/L (0-33) H 09/12/21 15:20 Alkaline Phosphatase 59 IU/L (35-105) 09/12/21 15:20 Total Protein 7.9 g/dL (6.6-8.7) 09/12/21 15:20 Albumin 4.6 g/dL (3.5-5.2) 09/12/21 15:20 Globulin 3.3 g/dL (1.3-4.6) 09/12/21 15:20 Lipase 24 U/L (13-60) 09/12/21 15:20 HCG, Qual Negative (Negative) 09/12/21 15:20 Urine Color Other (Yellow) 09/12/21 16:10 Urine Appearance Cloudy (CLEAR) 09/12/21 16:10 Urine pH 8 (5-7) H 09/12/21 16:10 Ur Specific Rogers 1.020 (1.005-1.030) 09/12/21 16:10 Urine Protein Neg (Negative) 09/12/21 16:10 Urine Glucose (UA) 1+ (Normal) H 09/12/21 16:10 Urine Ketones Negative (Negative) 09/12/21 16:10 Urine Blood 3+ (Negative) H 09/12/21 16:10 Urine Nitrate Negative (Negative) 09/12/21 16:10 Urine Bilirubin Neg (Negative) 09/12/21 16:10 Prot Sulfosalicylic Acd Negative (Negative) 09/12/21 16:10 Urine Urobilinogen Neg mg/dL (Negative) 09/12/21 16:10 Ur Leukocyte Esterase Negative (Negative) 09/12/21 16:10 Urine RBC Too numerous to cnt /hpf (0-2) H 09/12/21 16:10 Urine WBC 0-4 /hpf (0-5) H 09/12/21 16:10 Ur Squamous Epith Cells Rare /hpf (0-5) 09/12/21 16:10 Amorphous Sediment Not Reportable 09/12/21 16:10 Urine Bacteria None /hpf (NONE) 09/12/21 16:10 Discharge Plan Discharge Patient Disposition: Home Clinical Impression: Kidney stone on right side Condition: Stable Prescriptions: New Naprosyn 500 mg tablet 500 mg PO BID PRN (Reason: pain) Qty: 20 0RF No Action amlodipine 10 mg tablet 10 mg PO QAM 0RF lisinopril 20 mg tablet 30 mg PO QAM 0RF tizanidine 4 mg capsule 4 mg PO TID PRN (Reason: Muscle Spasm) 0RF fenofibrate nanocrystallized 145 mg tablet 145 mg PO QAM 0RF prazosin 5 mg capsule 10 mg PO BEDTIME Qty: 60 2RF metformin 500 mg tablet 500 mg PO BID 0RF levocetirizine [Xyzal] 5 mg tablet 5 mg PO QAM 0RF azelastine 137 mcg (0.1 %) aerosol,spray 2 spray intranasal BID 0RF Rx Instructions: administer into each nostril aspirin 81 mg Tablet,Delayed Release (Dr/Ec) 81 mg PO QAM 0RF pantoprazole [Protonix] 40 mg Tablet,Delayed Release (Dr/Ec) 40 mg PO QAM 0RF Tylenol Extra Strength 500 mg tablet 1,000 mg PO PRN 0RF sumatriptan succinate 50 mg tablet 50 mg PO PRN 0RF aripiprazole [Abilify] 2 mg tablet 2 mg PO QAM 0RF Naprosyn 500 mg tablet 500 mg PO BID PRN (Reason: pain) Qty: 20 0RF Augmentin 875-125 mg tablet 1 tab PO BID Qty: 14 0RF Discharge Orders: Discharge ED (Routine); Ordered 09/12/21 Ordered By: Norm Tompkins Referrals: Amada Rivers FNP [Primary Care Provider] - Discharge Diet: Regular Discharge Activity: Increase activity as tolerated Patient Instructions: Kidney Stones (ED), Opioid Safety Activity Restrictions/Additional Instructions: Follow-up with medical provider as directed. Case management should be contacting you in the next several days to set up an appointment with Dr. Amaro the urologist. Strain urine to catch stone and drink lots of fluid to stay hydrated and help pass stone. Take medications as prescribed. Return to the ER or your medical provider if condition worsens. Please read and understand discharge instructions. If any questions, please ask. Coding Level of Care Code ED Project Management Director for Chg Fwd Exam Comprehensive Documented by User: Shabbir Krishnan DO 09/13/21 11:25 HPI - Abdominal Pain General: Chief Complaint: Abdominal Pain Stated Complaint: BACK PAIN Time Seen by Provider: 09/12/21 14:00 [facility] ED PFSH: Medical History delivery delivered X 2 Surgical History H/O tubal ligation H/O: hysterectomy Family History Father , AT AGE 49 Esophageal varices with bleeding Mother , AT AGE 66 Cirrhosis of liver Grandmother Cancer kidney Grandfather AML (acute myeloblastic leukemia) Social History Smoking and tobacco status: never smoked Second hand smoke exposure: Yes Smoking risk assessment/counseling performed?: Yes Tobacco counseling given: counseling >3 minutes Alcohol intake: never Marital status: Current occupational status: disabled History of recent travel: No Course Vital Signs: Vital signs: Vital Signs Temperature 97.8 F 09/12/21 13:30 Pulse Rate 68 09/12/21 14:00 Respiratory Rate 26 H 09/12/21 15:35 Blood Pressure 170/67 09/12/21 14:00 Pulse Oximetry 97 09/12/21 14:00 MDM - Abdominal Pain Medical Decision Making Patient is a 46-year-old female comes to the ED with right flank pain. Vitals are stable. White blood cell count 10.6 the rest of CBC and CMP were unremarkable. UA showed some red blood cells but no concern for any infection. Abdominal CT showed a 5.5 mm kidney stone in right distal ureter. Patient's pain was controlled with some IV morphine and then Toradol. She was stable for discharge home I placed order with case management for patient to be referred to Dr. Amaro for follow-up on kidney stone. She was discharged home with a prescription for hydrocodone and naproxen for pain. Return to ED precautions given. Patient understood and agree with plan. Chart reviewed and patient discussed with midlevel. Agree with assessment and plan. Lab Data : 09/12/21 15:20 09/12/21 15:20 Labs/Radiology: Radiology Impressions Abdomen/Pelvis CT 09/12/21 14:13 IMPRESSION: 1. Moderate RIGHT hydroureteronephrosis secondary to 5.5 mm calcification in the distal ureter. 2. Mild bulge in the contour of the RIGHT kidney. This corresponds to previously described complex cyst in the RIGHT kidney. No increase in size. 3. Prior appendectomy, cholecystectomy and hysterectomy. 4. Hepatic steatosis and hepatomegaly. 5. Stable splenic cyst. Laboratory Results WBC 10.6 10^3/uL (4.0-10.0) H 09/12/21 15:20 RBC 5.17 10^6/uL (4.1-5.3) 09/12/21 15:20 Hgb 14.5 g/dL (11.5-15.3) 09/12/21 15:20 Hct 44.7 % (37.0-47.0) 09/12/21 15:20 MCV 86.5 fl (81-99) 09/12/21 15:20 MCH 28.0 pg (28.0-34.0) 09/12/21 15:20 MCHC 32.4 g/dL (30.0-36.0) 09/12/21 15:20 RDW 12.0 % (12.1-15.1) L 09/12/21 15:20 Plt Count 315 10^3/cmm (130-400) 09/12/21 15:20 MPV 10.7 fL (7.4-10.4) H 09/12/21 15:20 Neut % (Auto) 80.1 % 09/12/21 15:20 Lymph % (Auto) 12.7 % 09/12/21 15:20 Levy % (Auto) 6.1 % 09/12/21 15:20 Eos % (Auto) 0.2 % 09/12/21 15:20 Baso % (Auto) 0.4 % 09/12/21 15:20 Neut # (Auto) 8.48 10^3/uL (1.8-7.7) H 09/12/21 15:20 Lymph # (Auto) 1.3 10^3/uL (0.8-4.8) 09/12/21 15:20 Levy # (Auto) 0.7 10^3/uL (0.2-0.9) 09/12/21 15:20 Eos # (Auto) 0.0 10^3/uL (0.0-0.8) 09/12/21 15:20 Baso # (Auto) 0.0 10^3/uL (0.0-0.1) 09/12/21 15:20 Nucleated RBC % (auto) 0 % 09/12/21 15:20 Nucleated RBCs # 0.0 /100WBC 09/12/21 15:20 Sodium 138 mmol/L (136-145) 09/12/21 15:20 Potassium 3.8 mmol/L (3.5-5.1) 09/12/21 15:20 Chloride 102 mmol/L (98-107) 09/12/21 15:20 Carbon Dioxide 22 mmol/L (22-29) 09/12/21 15:20 Anion Gap 17.8 (5-19) 09/12/21 15:20 BUN 14 mg/dL (6-20) 09/12/21 15:20 Creatinine 1.1 mg/dL (0.5-0.9) H 09/12/21 15:20 GFR Calculation 53.7 mL/min (90-130) L 09/12/21 15:20 Glucose 169 mg/dL (65-115) H 09/12/21 15:20 Calculated Osmolality 290 mOsm/kg (285-295) 09/12/21 15:20 Calcium 9.7 mg/dL (8.5-10.5) 09/12/21 15:20 Total Bilirubin 0.4 mg/dL (0.15-1.2) 09/12/21 15:20 AST 34 U/L (0-32) H 09/12/21 15:20 ALT 38 U/L (0-33) H 09/12/21 15:20 Alkaline Phosphatase 59 IU/L (35-105) 09/12/21 15:20 Total Protein 7.9 g/dL (6.6-8.7) 09/12/21 15:20 Albumin 4.6 g/dL (3.5-5.2) 09/12/21 15:20 Globulin 3.3 g/dL (1.3-4.6) 09/12/21 15:20 Lipase 24 U/L (13-60) 09/12/21 15:20 HCG, Qual Negative (Negative) 09/12/21 15:20 Urine Color Other (Yellow) 09/12/21 16:10 Urine Appearance Cloudy (CLEAR) 09/12/21 16:10 Urine pH 8 (5-7) H 09/12/21 16:10 Ur Specific Rogers 1.020 (1.005-1.030) 09/12/21 16:10 Urine Protein Neg (Negative) 09/12/21 16:10 Urine Glucose (UA) 1+ (Normal) H 09/12/21 16:10 Urine Ketones Negative (Negative) 09/12/21 16:10 Urine Blood 3+ (Negative) H 09/12/21 16:10 Urine Nitrate Negative (Negative) 09/12/21 16:10 Urine Bilirubin Neg (Negative) 09/12/21 16:10 Prot Sulfosalicylic Acd Negative (Negative) 09/12/21 16:10 Urine Urobilinogen Neg mg/dL (Negative) 09/12/21 16:10 Ur Leukocyte Esterase Negative (Negative) 09/12/21 16:10 Urine RBC Too numerous to cnt /hpf (0-2) H 09/12/21 16:10 Urine WBC 0-4 /hpf (0-5) H 09/12/21 16:10 Ur Squamous Epith Cells Rare /hpf (0-5) 09/12/21 16:10 Amorphous Sediment Not Reportable 09/12/21 16:10 Urine Bacteria None /hpf (NONE) 09/12/21 16:10 Discharge Plan Discharge Patient Disposition: Home Clinical Impression: Kidney stone on right side Condition: Stable Prescriptions: New Naprosyn 500 mg tablet 500 mg PO BID PRN (Reason: pain) Qty: 20 0RF No Action amlodipine 10 mg tablet 10 mg PO QAM 0RF lisinopril 20 mg tablet 30 mg PO QAM 0RF tizanidine 4 mg capsule 4 mg PO TID PRN (Reason: Muscle Spasm) 0RF fenofibrate nanocrystallized 145 mg tablet 145 mg PO QAM 0RF prazosin 5 mg capsule 10 mg PO BEDTIME Qty: 60 2RF metformin 500 mg tablet 500 mg PO BID 0RF levocetirizine [Xyzal] 5 mg tablet 5 mg PO QAM 0RF azelastine 137 mcg (0.1 %) aerosol,spray 2 spray intranasal BID 0RF Rx Instructions: administer into each nostril aspirin 81 mg Tablet,Delayed Release (Dr/Ec) 81 mg PO QAM 0RF pantoprazole [Protonix] 40 mg Tablet,Delayed Release (Dr/Ec) 40 mg PO QAM 0RF Tylenol Extra Strength 500 mg tablet 1,000 mg PO PRN 0RF sumatriptan succinate 50 mg tablet 50 mg PO PRN 0RF aripiprazole [Abilify] 2 mg tablet 2 mg PO QAM 0RF Naprosyn 500 mg tablet 500 mg PO BID PRN (Reason: pain) Qty: 20 0RF Augmentin 875-125 mg tablet 1 tab PO BID Qty: 14 0RF Discharge Orders: Discharge ED (Routine); Ordered 09/12/21 Ordered By: Norm Tompkins Referrals: Amada Rivers, COMMUNICATIONS COORDINATOR [Primary Care Provider] - Discharge Diet: Regular Discharge Activity: Increase activity as tolerated Patient Instructions: Kidney Stones (ED), Opioid Safety Activity Restrictions/Additional Instructions: Follow-up with medical provider as directed. Case management should be contacting you in the next several days to set up an appointment with Dr. Amaro the urologist. Strain urine to catch stone and drink lots of fluid to stay hydrated and help pass stone. Take medications as prescribed. Return to the ER or your medical provider if condition worsens. Please read and understand discharge instructions. If any questions, please ask. Coding Level of Care Code ED Project Management Director for Chg Fwd Exam Comprehensive
--- NOTE | 2021-09-12 14:13 | CT_ITS ---
WS: [id number] CT ABDOMEN AND PELVIS NONCONTRAST HISTORY: right flank pain TECHNIQUE: Imaging performed through the abdomen and pelvis. Coronal and sagittal reformats are submi tted. All CT scans at [facility] use at least one of these dose optimization techniques: auto mated exposure control; mA and/or kV adjustment per patient size (includes targeted exams where dose is matched to clinical indication); or iterative reconstruction. DLP: 2049.54 mGy.cm COMPARISON: 09/26/2020 Lower thorax: Focal linear scar at the LEFT lung base. By history patient's undergone a prior thoraco aline. No nodule or pneumonia. Heart size is normal. Small hiatal hernia. Liver: Diffuse hepatic steatosis and hepatomegaly. Portal vein is normal size. No bile duct dilatatio n appreciated. Gallbladder: Prior cholecystectomy. Pancreas: Normal size and attenuation. Normal pancreatic duct. No pancreatitis or mass. Spleen: Normal size spleen. There is a well-rounded low-attenuation nodule from the inferior pole scott suring 2.5 x 2.3 cm. Adrenal glands: 8mm nodule LEFT adrenal. Normal RIGHT adrenal gland. Right kidney: Mild diffuse perinephric stranding. There is a bulge in the contour of the kidney measu ring 17 mm. Similar location to the cyst seen on a prior CT from 09/26/2020. No increase in size. Mode rate hydroureteronephrosis. Ureter is dilated significantly throughout its course. In the distal uret er is a 6 mm calcification causing the obstruction or hydronephrosis. There is an additional 2 mm non obstructing calcification in the mid kidney. Left kidney: Nonobstructing renal calculus lower pole. Aorta: Normal abdominal aorta, no aneurysm or atherosclerosis. No free fluid, intraperitoneal air or significant lymphadenopathy. GI tract: Prior appendectomy. No GI tract obstruction. Stomach is not distended. No acute inflammatio n. Abdominal wall: Fat-containing umbilical hernia. Pelvis: Prior hysterectomy. Urinary bladder is not distended. Osseous structures: Stable negative lytic sclerotic lesion in the proximal LEFT femur is probably enc hondroma. CT/CT kidney stone [id number] IMPRESSION: 1. Moderate RIGHT hydroureteronephrosis secondary to 5.5 mm calcification in t he distal ureter. 2. Mild bulge in the contour of the RIGHT kidney. This corresponds to previous ly described complex cyst in the RIGHT kidney. No increase in size. 3. Prior appendectomy, cholecystectomy and hysterectomy. 4. Hepatic steatosis and hepatomegaly. 5. Stable splenic cyst.
[2021-09-12] MEDS: sodium chloride 0.9% 500 ML 999 ML IV (15:28)
[2021-09-12 15:35] VITALS: RESP 26
[2021-09-12] MEDS: ondansetron 2 mg/ML SDV 2 mL 4 MG IVP (15:35)
[2021-09-12] MEDS: morphine 4 mg/mL SDV 1 mL IVP (15:35)
[2021-09-12 15:39] LABS: Basophils % 0.4 %; Eosinophils % 0.2 %; Hematocrit 44.7 % (37.0-47.0); Hemoglobin 14.5 g/dL (11.5-15.3); Lymphocytes # 1.3 10^3/uL (0.8-4.8); Lymphocytes % 12.7 %; Mean Corpuscular HGB Conc 32.4 g/dL (30.0-36.0); Mean Corpuscular Volume 86.5 fl (81-99); Mean Platelet Volume 10.7 fL (7.4-10.4); Monocytes # 0.7 10^3/uL (0.2-0.9); Monocytes % 6.1 %; Neutrophils # 8.48 10^3/uL (1.8-7.7); Neutrophils % 80.1 %; Nucleated Red Blood Cells % 0 %; Platelet Count 315 10^3/cmm (130-400); Red Blood Count 5.17 10^6/uL (4.1-5.3); White Blood Count 10.6 10^3/uL (4.0-10.0)
[2021-09-12 15:49] LABS: HCG, Serum Qual Negative (Negative)
[2021-09-12 15:58] LABS: Alanine Aminotransferase 38 U/L (0-33); Albumin Level 4.6 g/dL (3.5-5.2); Alkaline Phosphatase 59 IU/L (35-105); Anion Gap 17.8 (5-19); Aspartate Amino Transferase 34 U/L (0-32); Blood Urea Nitrogen 14 mg/dL (6-20); Calcium 9.7 mg/dL (8.5-10.5); Carbon Dioxide 22 mmol/L (22-29); Chloride 102 mmol/L (98-107); Globulin 3.3 g/dL (1.3-4.6); Glomerular Filtration Rate 53.7 mL/min (90-130); Glucose 169 mg/dL (65-115); Lipase 24 U/L (13-60); Osmolality Calculated 290 mOsm/kg (285-295); Potassium 3.8 mmol/L (3.5-5.1); Sodium 138 mmol/L (136-145); Total Bilirubin 0.4 mg/dL (0.15-1.2); Total Protein 7.9 g/dL (6.6-8.7)
[2021-09-12] MEDS: tamsulosin 0.4 mg Capsule PO (16:25)
[2021-09-12] MEDS: ketorolac 30 mg/mL INJ IVP (16:33)
[2021-09-12 17:52] LABS: Add Urine Microscopic? YES; Bilirubin Urine Neg (Negative); Blood Urine 3+ (Negative); Glucose Urine UA 1+ (Normal); Ketones Urine Negative (Negative); Leukocyte Esterase Urine Negative (Negative); Nitrate Urine Negative (Negative); Protein Urine Neg (Negative); Sulfosalicylic Acid Urine Negative (Negative); Urine Appearance Cloudy (CLEAR); Urine Color Other (Yellow); Urobilinogen Urine Neg (Negative); pH Urine 8 (5-7)
[2021-09-12 17:53] LABS: Add Urine Culture? Yes; RBC Urine TOO NUMEROUS TO CNT /hpf (0-2); Squamous Epithelial Cell Urine RARE /hpf (0-5); WBC Urine 0-4 /hpf (0-5)
--- NOTE | 2021-09-14 11:25 | DCPLANNER ---
Addendum entered by Elva Beasley 10/25/21 20:24: Patient had a follow up appointment scheduled with urology - patient did attend appointment. Addendum entered by Elva Beasley 09/15/21 14:09: Patient has a follow up appointment scheduled for Saturday, October 09, 2021 at 9:[address] Amaro. Clinic will call patient with appointment information. Original Note: field sales manager had message to schedule a follow up appointment for patient with Dr. Amaro at urology. field sales manager sent patients information to the front office of staff of urology thru [employer] messaging system. Patients information will be printed ad reviewed. Clinic will call patient with appointment information.
== END 2021-09-12 18:14 | disposition home or self-care (01) ==
PROVIDERS: Emergency Medicine; Emergency Provider Nurse Practitioner Family; PCP Nurse Practitioner Family
DX: N20.0 Calculus of kidney (principal); Z87.442 Personal history of urinary calculi
CPT/HCPCS: 74176; 80053; 81001; 83690; 84703; 85025; 87086; 96374; 96375; 99283; J1885; J2270; J2405; J7040

== ENCOUNTER 2022-02-02 16:10 | Outpatient (CLI) | payer MEDICAID, SELFPAY ==
--- NOTE | 2022-02-02 16:23 | XRR_ITS ---
PROCEDURE INFORMATION: Exam: XR Lumbosacral Spine Exam date and time: 02/02/2022 4:31 PM Age: 46 years old Clinical indication: Low back pain; Prior surgery; Surgery type: Hystero; Additional info: Chronic back pain TECHNIQUE: Imaging protocol: Radiologic exam of the lumbosacral spine. Views: 4 or 5 views. AP Lateral Oblique COMPARISON: CT lumbar spine wo con* [id number] 06/14/2016 10:42 PM FINDINGS: Bones/joints: There are 5 nonrib-bearing lumbar-type vertebrae. No radiographically evident fracture or subluxation. The posterior elements, spinous processes and transverse processes appear unremarkable. The oblique views show no pars interarticularis defects. There are degenerative facet disease changes throughout the lumbar spine, severe at the L5-S1 level. Some L5-S1 foraminal narrowing is seen. Mild bilateral sacroiliac joint degenerative changes are seen. Tiny degenerative osteophytes are seen throughout the lumbar spine. Soft tissues: Paraspinal soft tissues are unremarkable. The disk spacing is maintained. Surgical clips are seen in the right upper quadrant of the abdomen, likely related to prior cholecystectomy. Notes: If there is further concern or neurological abnormalities on clinical exam, CT or MRI of the lumbar spine may be performed for complete assessment. XR/XR lumbar spine min 4V [id number] IMPRESSION: No fractures of the lumbar spine. Degenerative changes, as noted above.
== END 2022-02-02 16:11 | disposition home or self-care (01) ==
PROVIDERS: PCP Nurse Practitioner Family; Visit Provider Nurse Practitioner Family
DX: M54.50 Low back pain, unspecified (principal)
CPT/HCPCS: 72110

== ENCOUNTER → 2022-02-15 10:01 | Outpatient (BNVA) | payer MEDICAID, SELFPAY | PROVIDERS: PCP Nurse Practitioner Family; Referring Provider Nurse Practitioner Family; Visit Provider Physician Assistant | DX: M51.36 Other intervertebral disc degeneration, lumbar region (principal) | CPT/HCPCS: 72110; 99203; 99204 ==

== ENCOUNTER 2022-03-03 12:17 | Emergency (ER) | payer MEDICAID, SELFPAY ==
[2022-03-03 12:19] VITALS: BP 162/97; PULSE 75; RESP 14; TEMP 36.2; O2SAT 98; BMI 45.1
--- NOTE | 2022-03-03 12:32 | ED_ITS ---
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 Associated symptoms: Deny abdominal pain, chills, dysuria, fever(s), nausea or vomiting Review of Systems Const: Denies: fever(s), chills, body aches or change in appetite Eyes: Denies: blurry vision or eye discomfort ENMT: Denies: throat pain or dental pain Card: Denies: chest pain Resp: Denies: dyspnea GI: Denies: abdominal pain, nausea, vomiting or diarrhea : Denies: dysuria Musc: Reports: back pain Skin/Breast: Denies: rash Neuro: Denies: headache(s) Psych: Denies: depression Ta/Lymph: Denies: easy bruising All/Imm: Denies: urticaria PFSH ED PFSH: Medical History delivery delivered X 2 Surgical History H/O tubal ligation H/O: hysterectomy Family History Father , AT AGE 49 Esophageal varices with bleeding Mother , AT AGE 66 Cirrhosis of liver Grandmother Cancer kidney Grandfather AML (acute myeloblastic leukemia) Social History Smoking and tobacco status: never smoked Second hand smoke exposure: Yes Smoking risk assessment/counseling performed?: Yes Tobacco counseling given: counseling >3 minutes Alcohol intake: never Marital status: Current occupational status: disabled History of recent travel: No Physical Exam Const: COMMON NORMALS: no acute distress, patient oriented x3 and healthy appearing HENMT: COMMON NORMALS: normocephalic and atraumatic HEAD & SCALP: normocephalic and atraumatic Eye: COMMON NORMALS: Equal, round and reactive pupils present and EOMs intact bilaterally PUPIL: Yes Equal, round and reactive pupils present Neck/C-Spine: COMMON NORMALS: full ROM and supple Chest: COMMONS NORMALS: normal inspection of the chest and normal palpation of entire chest wall Resp: COMMON NORMALS: normal respiratory effort, No retractions, No use of accessory muscles and clear to auscultation bilaterally AUSCULTATION: clear to auscultation bilaterally Cardio: COMMON NORMALS: regular rate, regular rhythm and No murmurs present (Cardio) RATE: regular rate RHYTHM: regular rhythm GI: COMMON NORMALS: Normal to inspection, nondistended, normoactive bowel sounds present, Soft to palpation, non-tender and no masses PALPATION: Yes Soft to palpation Back/Pelvis: OTHER: Paraspinal tenderness to the low back no midline tenderness no saddle anesthesia Extremity: COMMON NORMALS: normal to inspection and full ROM Neuro: COMMON NORMALS: patient oriented x3, moves all extremities and no focal motor deficits Psych: COMMON NORMALS: mental status grossly normal, Normal thought process present and cooperative THOUGHT PROCESS: Normal thought process present Skin: COMMON NORMALS: no rashes or lesions noted and no wounds GENERAL SKIN EXAM: no rashes or lesions noted Course Vital Signs: Vital signs: Vital Signs Temperature 97.1 F L 03/03/22 12:19 Pulse Rate 75 03/03/22 12:19 Respiratory Rate 14 03/03/22 12:19 Blood Pressure 162/97 03/03/22 12:19 Pulse Oximetry 98 03/03/22 12:19 Oxygen Delivery Me thod 03/03/22 12:19 MDM - Back Pain/Injury Medical Decision Making Patient presents with back pain and is likely muscle strain from lifting patient has no signs of cord compression or epidural abscess patient given [place] along with Decadron here will prescribe Naprosyn Robaxin for home patient is to follow-up with her PCP and return if worsening she understands agrees plan. Discharge Plan Discharge Patient Disposition: Home Clinical Impression: Strain of lumbar region Condition: Stable Prescriptions: New methocarbamol 750 mg tablet 750 mg PO Q6H PRN (Reason: spasms) Qty: 20 0RF naproxen [Naprosyn] 500 mg tablet 500 mg PO BID PRN (Reason: pain) Qty: 20 0RF No Action amlodipine 10 mg tablet 10 mg PO QAM lisinopril 20 mg tablet 30 mg PO QAM tizanidine 4 mg capsule 4 mg PO TID PRN (Reason: Muscle Spasm) fenofibrate nanocrystallized 145 mg tablet 145 mg PO QAM prazosin 5 mg capsule 10 mg PO BEDTIME Qty: 60 2RF metformin 500 mg tablet 500 mg PO BID levocetirizine [Xyzal] 5 mg tablet 5 mg PO QAM azelastine 137 mcg (0.1 %) aerosol,spray 2 spray intranasal BID Rx Instructions: administer into each nostril aspirin 81 mg Tablet,Delayed Release (Dr/Ec) 81 mg PO QAM pantoprazole [Protonix] 40 mg Tablet,Delayed Release (Dr/Ec) 40 mg PO QAM Tylenol Extra Strength 500 mg tablet 1,000 mg PO PRN sumatriptan succinate 50 mg tablet 50 mg PO PRN aripiprazole [Abilify] 2 mg tablet 2 mg PO QAM Naprosyn 500 mg tablet 500 mg PO BID PRN (Reason: pain) Qty: 20 0RF Augmentin 875-125 mg tablet 1 tab PO BID Qty: 14 0RF Naprosyn 500 mg tablet 500 mg PO BID PRN (Reason: pain) Qty: 20 0RF Discharge Orders: Discharge ED (Routine); Ordered 03/03/22 Ordered By: Paula William Referrals: Amada Rivers, CAR REPAIRER PULLMAN [Primary Care Provider] - Discharge Diet: Advance as tolerated Discharge Activity: Resume usual activity Patient Instructions: Back Pain (ED) Stand Alone Forms: Work/School Release Coding 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
[2022-03-03] MEDS: methocarbamol 750 mg Tablet PO (12:49)
[2022-03-03] MEDS: dexamethasone 10 mg/mL INJ IM (12:49)
[2022-03-03] MEDS: HYDROcodone-acetaminophen 7.5-325 mg Tablet 1 TAB PO (12:49)
== END 2022-03-03 13:06 | disposition home or self-care (01) ==
PROVIDERS: Emergency Provider Emergency Medicine; PCP Nurse Practitioner Family
DX: S39.012A Strain of muscle, fascia and tendon of lower back, initial encounter (principal); X50.0XXA Overexertion from strenuous movement or load, initial encounter
CPT/HCPCS: 96372; 99284; J1100

== ENCOUNTER → 2022-03-22 09:07 | Outpatient (BNVA) | payer MEDICAID, SELFPAY | PROVIDERS: PCP Nurse Practitioner Family; Visit Provider Physician Assistant | DX: M43.16 Spondylolisthesis, lumbar region (principal) | CPT/HCPCS: 99213 ==

== ENCOUNTER → 2022-03-29 08:34 | Outpatient (BNVA) | payer MEDICAID, SELFPAY | PROVIDERS: PCP Nurse Practitioner Family; Visit Provider Orthopaedic Surgery | DX: M47.22 Other spondylosis with radiculopathy, cervical region (principal); M54.50 Low back pain, unspecified; M54.6 Pain in thoracic spine | CPT/HCPCS: 72050; 72070; 99214 ==

== ENCOUNTER 2022-04-17 16:41 | Emergency (ER) | payer MEDICAID, SELFPAY ==
[2022-04-17 17:35] VITALS: BP 173/106; PULSE 48; RESP 16; TEMP 36.6; O2SAT 96; BMI 42.5
--- NOTE | 2022-04-17 18:51 | ED_ITS ---
HPI - Extremity Problem General: Chief complaint: Extremity Injury, Upper Stated complaint: Right ring finger lac Time Seen by Provider: 04/17/22 18:51 History of Present Illness: Patient comes in for injury to the right ring finger. 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 Patient had difficulty stopping the bleeding and came to the ER for evaluation. Bleeding has stopped since arriving to the ER. Patient cannot recall her last tetanus. 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 Review of Systems General: Reports: 10 or more systems reviewed and unremarkable except in HPI and below Musc: Reports: extremity pain Skin/Breast: Reports: new lesions PFSH ED PFSH: Medical History delivery delivered X 2 Surgical History H/O tubal ligation H/O: hysterectomy Family History Father , AT AGE 49 Esophageal varices with bleeding Mother , AT AGE 66 Cirrhosis of liver Grandmother Cancer kidney Grandfather AML (acute myeloblastic leukemia) Social History Smoking and tobacco status: never smoked Second hand smoke exposure: Yes Smoking risk assessment/counseling performed?: Yes Tobacco counseling given: counseling >3 minutes Alcohol intake: never Marital status: Current occupational status: disabled History of recent travel: No Physical Exam Const: COMMON NORMALS: alert HENMT: COMMON NORMALS: normocephalic HEAD & SCALP: normocephalic Neck/C-Spine: COMMON NORMALS: full ROM Resp: COMMON NORMALS: normal respiratory effort Cardio: COMMON NORMALS: regular rate RATE: regular rate Extremity: RIGHT UPPER EXTREMITY: Yes hand & digits (Superficial injury to the distal tip of the right ring finger) Right hand and digits: Yes inspection, Yes palpation and Yes ROM exam Neuro: SENSORIUM/ORIENTATION: Yes alert Skin: TRAUMA: laceration (Right hand fourth finger) Course Vital Signs: Vital signs: Vital Signs Temperature 97.9 F 04/17/22 17:35 Pulse Rate 48 L 04/17/22 17:35 Respiratory Rate 16 04/17/22 17:35 Blood Pressure 173/106 04/17/22 17:35 Pulse Oximetry 96 04/17/22 17:35 Oxygen Delivery Me thod 04/17/22 17:35 MDM - Extremity (Nontraumatic) Medical Decision Making Patient comes in for injury to the right ring finger. On exam there is a 4 mm laceration to the distal tip of the finger the skin is mainly avulsed. Bleeding is controlled. Remainder of exam is unremarkable. Differential diagnosis includes but not limited to need for prophylaxis tetanus, laceration, foreign body. No sign of foreign body is noted. Patient's tetanus was updated. Wound was cleaned and dressed with recommendations for prophylaxis antibiotic and wound care. Patient stated understanding and agreed to plan. Discharge Plan Discharge Patient Disposition: Home Clinical Impression: Laceration of right index finger Qualifiers: Encounter type: initial encounter Damage to nail status: without damage Foreign body presence: without foreign body Qualified Code(s): S61.210A - Laceration without foreign body of right index finger without damage to nail, initial encounter Condition: Stable Prescriptions: New cephalexin 500 mg capsule 500 mg PO BID 7 Days Qty: 14 0RF bacitracin 500 unit/gram ointment 1 applic topical BID Qty: 28 0RF No Action amlodipine 10 mg tablet 10 mg PO QAM lisinopril 20 mg tablet 30 mg PO QAM tizanidine 4 mg capsule 4 mg PO TID PRN (Reason: Muscle Spasm) fenofibrate nanocrystallized 145 mg tablet 145 mg PO QAM prazosin 5 mg capsule 10 mg PO BEDTIME Qty: 60 2RF metformin 500 mg tablet 500 mg PO BID levocetirizine [Xyzal] 5 mg tablet 5 mg PO QAM azelastine 137 mcg (0.1 %) aerosol,spray 2 spray intranasal BID Rx Instructions: administer into each nostril aspirin 81 mg Tablet,Delayed Release (Dr/Ec) 81 mg PO QAM pantoprazole [Protonix] 40 mg Tablet,Delayed Release (Dr/Ec) 40 mg PO QAM Tylenol Extra Strength 500 mg tablet 1,000 mg PO PRN sumatriptan succinate 50 mg tablet 50 mg PO PRN aripiprazole [Abilify] 2 mg tablet 2 mg PO QAM Naprosyn 500 mg tablet 500 mg PO BID PRN (Reason: pain) Qty: 20 0RF Augmentin 875-125 mg tablet 1 tab PO BID Qty: 14 0RF methocarbamol 750 mg tablet 750 mg PO Q6H PRN (Reason: spasms) Qty: 20 0RF Naprosyn 500 mg tablet 500 mg PO BID PRN (Reason: pain) Qty: 20 0RF Naprosyn 500 mg tablet 500 mg PO BID PRN (Reason: pain) Qty: 20 0RF Discharge Orders: Discharge ED (Routine); Ordered 04/17/22 Ordered By: Shant Garcia Referrals: Amada Rivers FNP [Primary Care Provider] - Patient Instructions: Finger Laceration (ED) Activity Restrictions/Additional Instructions: Keep wound clean and dry. Use acetaminophen and ibuprofen for pain. Clean wound daily with mild soap and water apply antibiotic ointment and cover. Follow-up with primary care in 1 week as needed. Return to ED for new concerns or worsening symptoms such as high fever, uncontrolled pain, or new concerns. 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
[2022-04-17] MEDS: tetanus-dipt-pertussis 0.5 mL SDV IM (19:57)
[2022-04-17] MEDS: bacitracin ointment Pkt 1 EACH TOPICAL (19:59)
--- NOTE | 2022-04-17 20:17 | PC.NURSE ---
Patient seen and treated and dc'd by provided prior to key attendant. 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
[2022-04-17 20:18] VITALS: BP 177/91; PULSE 58; RESP 15; TEMP 36.7; O2SAT 98
== END 2022-04-17 20:21 | disposition home or self-care (01) ==
PROVIDERS: Emergency Provider Nurse Practitioner Family; PCP Nurse Practitioner Family
DX: S61.210A Laceration without foreign body of right index finger without damage to nail, initial encounter (principal); Z79.84 Long term (current) use of oral hypoglycemic drugs; Z79.82 Long term (current) use of aspirin; Z77.22 Contact with and (suspected) exposure to environmental tobacco smoke (acute) (chronic); Z23 Encounter for immunization; W31.82XA Contact with other commercial machinery, initial encounter; Y99.0 Civilian activity done for income or pay
CPT/HCPCS: 90471; 90715; 99283

== ENCOUNTER 2022-05-16 08:14 | Outpatient (CLI) | payer MEDICAID, SELFPAY ==
--- NOTE | 2022-05-16 08:45 | MR_ITS ---
WS: [id number] MRI LUMBAR SPINE NONCONTRAST HISTORY: Spondylolisthesis and low back pain. Leg numbness and tingling. COMPARISON: 02/15/2022 TECHNIQUE: Sagittal and axial multisequence imaging is submitted. Normal lumbar alignment with no compression fractures or marrow edema. Disc spaces and vertebral body heights are well-preserved. Conus terminates normally at L1. L1-L2: Mild disc bulging and facet arthritis. Mild foraminal narrowing. L2-L3: Mild annular disc bulging with ligamentum flavum and facet arthritis. No focal disc protrusion s. Mild central, bilateral subarticular recess and foraminal stenosis. L3-L4: Mild annular disc bulging with moderate ligamentum flavum and facet arthritis. Mild central an d subarticular recess stenosis. Moderate foraminal stenosis. L4-L5: Annular disc bulging with mild osteophytic ridging. Moderate facet joint arthritis and ligamen tomas flavum hypertrophy. Increasing fluid in the facet joints. Mild central and bilateral subarticular recess stenosis. Moderate bilateral foraminal stenosis. L5-S1: Mild disc bulging and facet arthritis. Mild to moderate bilateral foraminal stenosis. No focal disc protrusion. Bilateral cystic masses in each kidney. Hemorrhagic cyst RIGHT kidney measures 2.3 cm. Smaller benign -appearing cysts within the LEFT kidney. MR/MR lumbar spine wo con* [id number] IMPRESSION: 1. No compression fractures or large disc protrusions. 2. Small thecal sac throughout may be due to short pedicles. This is resulting in multilevel foraminal stenosis as above. 3. Mild central, bilateral subarticular recess and foraminal stenosis at L2-3. 4. Moderate bilateral foraminal stenosis at L3-4 and L4-5 with mild central an d subarticular recess stenosis. 5. Mild to moderate bilateral foraminal stenosis at L5-S1.
== END 2022-05-16 08:15 | disposition home or self-care (01) ==
LOC: RAD 08:15
PROVIDERS: PCP Nurse Practitioner Family; Visit Provider Physician Assistant
DX: M79.604 Pain in right leg (principal); R20.0 Anesthesia of skin; M43.16 Spondylolisthesis, lumbar region; M48.07 Spinal stenosis, lumbosacral region
CPT/HCPCS: 72148

== ENCOUNTER 2022-05-16 08:14 | Outpatient (CLI) | payer MEDICAID, SELFPAY ==
--- NOTE | 2022-05-16 09:30 | MR_ITS ---
WS: [id number] MRI CERVICAL SPINE NONCONTRAST HISTORY: neck pain COMPARISON: 08/25/2013 Technique: Multiplanar, multisequence noncontrast imaging of the cervical spine. Straightening of the normal cervical lordosis. Signal within the cervical cord is normal. Visualized posterior fossa is unremarkable. Craniocervical junction, C1 and C2 relationship, odontoid process and soft tissues are normal. C2-C3: Normal. C3-C4: Normal. C4-C5: Mild disc bulging with central disc protrusion and osteophytic ridging. Very mild foraminal na rrowing due to osteophyte disease. Mild central stenosis. New since 2013. C5-C6: Moderate annular disc bulging with a central disc protrusion and osteophytosis. Mild central a nd bilateral foraminal stenosis, RIGHT greater than LEFT. C6-C7: Diffuse annular disc bulging with a central disc protrusion. Mild facet arthritis and osteophy tic ridging. Effacement of ventral CSF. Mild central stenosis. C7-T1: Normal. Paraspinal soft tissue are normal. MR/MR cervical spin wo con* [id number] IMPRESSION: 1. Mild progression of degenerative disc disease and osteophytosis since 2013. 2. Mild central and bilateral foraminal stenosis at C5-6. Slightly greater omar nosis RIGHT foramen. 3. Mild central stenosis with central disc protrusion and foraminal narrowing at C4-5. 4. Mild central stenosis with a central disc protrusion at C5-6.
== END 2022-05-16 08:15 | disposition home or self-care (01) ==
LOC: RAD 08:15
PROVIDERS: PCP Nurse Practitioner Family; Visit Provider Orthopaedic Surgery
DX: M50.30 Other cervical disc degeneration, unspecified cervical region (principal); M48.02 Spinal stenosis, cervical region; M50.221 Other cervical disc displacement at C4-C5 level; M50.222 Other cervical disc displacement at C5-C6 level
CPT/HCPCS: 72141

== ENCOUNTER → 2022-05-24 13:33 | Outpatient (BNVA) | payer MEDICAID, SELFPAY | PROVIDERS: PCP Nurse Practitioner Family; Visit Provider Orthopaedic Surgery | DX: M47.12 Other spondylosis with myelopathy, cervical region (principal) | CPT/HCPCS: 99214 ==

== ENCOUNTER → 2022-05-30 09:38 | Outpatient (BNVA) | payer MEDICAID, SELFPAY | PROVIDERS: PCP Nurse Practitioner Family; Visit Provider Internal Medicine Cardiovascular Disease | DX: R00.1 Bradycardia, unspecified (principal) | CPT/HCPCS: 93225 ==

== ENCOUNTER 2022-07-09 12:32 | Inpatient (IN) | payer MEDICAID, SELFPAY ==
[2022-07-03 09:07] VITALS: BMI 42.5
--- NOTE | 2022-07-03 10:51 | SUR.PREOP ---
0935 Called our inpatient pharmacy regarding pt with hx of alpha gal and spoke with DARIO Gonzalez and relayed message and verbalized understanding
--- NOTE | 2022-07-03 13:23 | ANES.PREANE2 ---
Pre-Anesthetic Assessment Height/Weight: Height 1.73 m Weight 127.006 kg Preop Diagnosis: Cervical spondylosis with myelopathy and radiculopathy Operation Date: 07/09/22 08:25 Proposed Procedures p Anterior Cervical Discectomy & Fusion C5/6 6/7 [id number],M47.12(Not Applicable) - DO buster Rojo Corpectomy at C6 20887(Not Applicable) - Chi May DO Familial anesthetic complications: alpha-GAL Was Beta Rojas taken within 24 hours: N/A Was Clonidine taken within 24 hours: N/A Social Tobacco (john) and No alcohol Exam alert, oriented x 3 and regular rate & rhythm Airway Submandibular: within normal limits Cervical ROM: within normal limits Mallampati: Class II Dentition: chipped Pulmonary Sleep Apnea CV/HEM Hypertension GI Gastroesophageal Reflux Disease Metabolic Diabetes Mellitus and Morbid Obesity Musc/skel Lower Back Pain and Osteoarthritis/DJD Neuropsych Anxiety and Depression Anesthetic Plan ASA status: 3 Anesthesia: General Medications/Allergies Home Medications Medication Instructions Recorded Confirmed Last Taken Type amlodipine 10 mg tablet 10 mg PO QAM 07/17/19 07/03/22 07/03/22 History levocetirizine 5 mg tablet (Xyzal) 5 mg PO QAM 05/02/20 07/03/22 07/03/22 History pantoprazole 40 mg tablet,delayed 40 mg PO QAM 05/13/20 07/03/22 07/02/22 History release (Protonix) acetaminophen 500 mg tablet 1,000 mg PO PRN 06/22/20 07/03/22 09/26/20 08:00 History (Tylenol Extra Strength) fenofibrate nanocrystallized 145 145 mg PO QAM 09/14/20 07/03/22 07/03/22 History mg tablet tizanidine 4 mg capsule 4 mg PO TID PRN Muscle Spasm 09/14/20 07/03/22 Unknown History sumatriptan succinate 50 mg tablet 50 mg PO PRN 09/26/20 07/03/22 Unknown History lisinopril 20 mg tablet 30 mg PO QAM 10/05/20 07/03/22 07/03/22 History dulaglutide 0.75 mg/0.5 mL 0.75 mg SUBCUT DIRECTED 05/20/22 07/03/22 06/27/22 History subcutaneous pen injector (Trulicity) Intraoperative Neuromonitoring #1 ea 06/25/22 Unknown Rx Allergies Allergy/AdvReac Type Severity Reaction Status Date / Time alpha galactosidase Allergy ALGY-Anaphy Uncoded 05/24/22 13:46 laxis [facility] Anesthesia Medical History delivery delivered X 2 Surgical History H/O tubal ligation H/O: hysterectomy Family History Father , AT AGE 49 Esophageal varices with bleeding Mother , AT AGE 66 Cirrhosis of liver Grandmother Cancer kidney Grandfather AML (acute myeloblastic leukemia) Social History Smoking and tobacco status: never smoked Second hand smoke exposure: Yes Smoking risk assessment/counseling performed?: Yes Tobacco counseling given: counseling >3 minutes Alcohol intake: never Marital status: Current occupational status: disabled History of recent travel: No Data Anesthesia Cardiac Studies: Holter Monitor 05/30/22
[2022-07-09] VITALS (15 sets, daily range): BP systolic 129–165; BP diastolic 83–103; PULSE 50–82; RESP 16–18; TEMP 36.1–36.7; O2SAT 91–99
--- NOTE | 2022-07-09 | XR_ITS ---
WS: [id number] Exam: XR cervical spine 3V* [id number] Date/Time of Exam: 07/09/2022 12:00 AM Reason For Exam: ACDF c5-c7 AP and lateral intraoperative C-arm images of the C-spine are submitted for evaluation. Anterior cervical spine fusion from C5 to C7 noted with plate and screw fixation as well as a spacer. The fusion appears to be in satisfactory alignment based on images presented. An ET tube is in the a irway. No other significant finding on this limited study.
[2022-07-09] MEDS: sodium chloride 0.9% 1,000 ML 30 ML IV (08:39)
[2022-07-09 08:42] LABS: Glucose Point of Care 95 mg/dL (70-110)
--- NOTE | 2022-07-09 08:52 | P.ANESUD_ITS ---
Pre-Anesthetic Update Pre-Anesthetic Assessment: Date of Surgery/Procedure: 07/09/22 Preop Niru gnosis: Cervical spondylosis with myelopathy and radiculopathy Proposed Procedure: Operation Date: 07/09/22 09:50 Proposed Procedures p Anterior Cervical Discectomy & Fusion C5/6 6/7 [id number],M47.12(Not Applicable) - Chi May, DO s Corpectomy at C6 72725(Not Applicable) - Chi May, DO Any changes to Pre-Anesthetic Assessment?: No Last Intake: Intake Last Liquid Date 07/08/22 Last Liquid Time 23:50 Last Solid Date 07/08/22 Last Solid Time 23:50 Vitals: Temperature 97.0 F L 07/09/22 08:26 Temperature Source Temporal Artery S can 07/09/22 08:26 Pulse Rate 64 07/09/22 08:26 Respiratory Rate 18 07/09/22 08:26 Blood Pressure 165/99 07/09/22 08:26 Blood Pressure Hazel n 121 07/09/22 08:26 Pulse Oximetry 97 07/09/22 08:26 Oxygen Delivery Me thod 07/09/22 08:26 Exam: Pre-Anes Outpt Exam: alert, oriented x 3, clear to auscultation bilaterally and regular rate & rhythm Cardiac Studies: Holter Monitor 05/30/22
--- NOTE | 2022-07-09 09:22 | P.HP_ITS ---
Providers/Chief Complaint Primary Care Provider: Amada Rivers Chief Complaint: ACDF C5/6 11/21 [id number] History of Present Illness Celine Melgar is a 46 year old female he rates her pain 11/24. She describes pain to her neck that travels into her bilateral upper extremities with the right being worse. She describes pain into the 5th and 4th fingers being worse. She denies any new injury or trauma since her last visit. She feels her pain increases with weather change. Review of Systems General: Reports: 10 or more systems reviewed and unremarkable except in HPI and below Const: Denies: fever(s), chills or body aches Eyes: Denies: change in vision ENMT: Denies: throat pain Card: Denies: chest pain or orthopnea Resp: Denies: dyspnea, productive cough or wheezing GI: Denies: abdominal pain, nausea or vomiting : Reports: flank pain Musc: Reports: neck pain and extremity pain Skin/Breast: Denies: changes in skin color or dry skin Neuro: Reports: headache(s), numbness in extremities, weakness in extremities and sensory changes Psych: Denies: anxiety Endo: Denies: flushing Ta/Lymph: Denies: easy bruising or easy bleeding All/Imm: Reports: urticaria Medications/Allergies Home Medications Medication Instructions Recorded Confirmed Last Taken Type amlodipine 10 mg tablet 10 mg PO QAM 07/17/19 07/09/22 07/03/22 History levocetirizine 5 mg tablet (Xyzal) 5 mg PO QAM 05/02/20 07/09/22 07/08/22 History pantoprazole 40 mg tablet,delayed 40 mg PO QAM 05/13/20 07/09/22 07/08/22 History release (Protonix) acetaminophen 500 mg tablet 1,000 mg PO PRN 06/22/20 07/09/22 07/08/22 History (Tylenol Extra Strength) fenofibrate nanocrystallized 145 145 mg PO QAM 09/14/20 07/09/22 07/08/22 History mg tablet tizanidine 4 mg capsule 4 mg PO TID PRN Muscle Spasm 09/14/20 07/09/22 Unknown History sumatriptan succinate 50 mg tablet 50 mg PO PRN 09/26/20 07/09/22 Unknown History lisinopril 20 mg tablet 30 mg PO QAM 10/05/20 07/09/22 07/08/22 History dulaglutide 0.75 mg/0.5 mL 0.75 mg SUBCUT DIRECTED 05/20/22 07/09/22 07/08/22 History subcutaneous pen injector (Trulicity) Intraoperative Neuromonitoring #1 ea 06/25/22 Unknown Rx Allergies Allergy/AdvReac Type Severity Reaction Status Date / Time alpha galactosidase Allergy ALGY-Anaphy Uncoded 07/09/22 08:21 laxis PFSH Acute PFSH: Medical History delivery delivered X 2 Surgical History H/O tubal ligation H/O: hysterectomy Family History Father , AT AGE 49 Esophageal varices with bleeding Mother , AT AGE 66 Cirrhosis of liver Grandmother Cancer kidney Grandfather AML (acute myeloblastic leukemia) Social History Smoking and tobacco status: never smoked Second hand smoke exposure: Yes Smoking risk assessment/counseling performed?: Yes Tobacco counseling given: counseling >3 minutes Alcohol intake: never Marital status: Current occupational status: disabled History of recent travel: No Vitals/I&O/Wt Last Vital Signs Temp 97.0 F L 07/09/22 08:26 Pulse 64 07/09/22 08:26 Resp 18 07/09/22 08:26 BP 165/99 07/09/22 08:26 Pulse Ox 97 07/09/22 08:26 O2 Del Method 07/09/22 08:26 Physical Exam Narrative: CONSTITUTIONAL: The patient is a normal appearing [] in no apparent distress. GENERAL: Patient in no acute distress. CARDIAC: Regular rate and rhythm. CHEST: Normal inspiratory effort, normal respiratory rate. ABDOMEN: Soft and nontender. SKIN: Clear, warm and intact. NEURO?PSYCH: The patient is alert and oriented to person, place and time. Sensorv /SILT Motor StrengthShoulder abduction C5 5/5Wrist extension C6 5/5Elbow extension C7 5/5Hand Supervisor Production Department C8 5/5Finger abduction T15/5 Radial/ Ulnar/ Median n intact LowerSensory (SILT)Motor StrengthHin flexion L2/3Ant/inner thigh 5/5Hip adduction L2/3 5/5Knee extension L4 Lat thigh, 5/5Toe dorsiflexion L5 5/5Ankle dorsiflexion L5/ T11Qfraoba flexion S1 5/5 DTRBleeps 2+Triceps 2+Brachioradialis 2+Patellar 2+Achilles 2+ MUSCULOSKELETAL: [] UPPEREXTREMITIES: The patient had full active ROM in fingers, wrist, elbow, and shoulder. The patient demonstrated ability to fully flex/extend/abduct/adduct fingers, make ok sign, cross 2nd/3rd digits, extend 1st digit fully.. Radial pulse 2+, CR<2 seconds. LOWER EXTREMITIES: Pt has full, active ROM of toes, ankle, knee, and hip. Dorsalis pedis/posterior tibialis pulses 2+, CR<2 seconds. SPINE: Skin warm, dry, intact. A&P Assessment and plan (1) Cervical spondylosis with myelopathy: C6 corpectomy C5 to C7 ACDF Attestations Medical Necessity Statement*: failed conservative tx Coding Level of Care Code Acute Code for Chg Fwd Diagnoses Cervical spondylosis with myelopathy M47.12
[2022-07-09] MEDS: ceFAZolin 2,000 MG in sodium chloride 0.9% (plus) 50 ML 100 MG IV ×2 (09:54→17:01)
--- NOTE | 2022-07-09 12:49 | PM.OP ---
Operative Report Date of procedure: July 09, 2022 Pre-op diagnosis: Preop Diagnosis Cervical spondylosis with myelopathy and radiculopathy Post-op diagnosis: same Procedure done: 1.? anterior diskectomy C5/6 2.? anterior diskectomy C6/7 3.? corpectomy >50% C6 4.? Insertion of corpectomy cage C5-C7 5.? Anterior Instrumentation with anterior plate from C5-C7 6. use of allograft 7. Use of autograft from same incison Surgeon: Chi May Transplanter Orchid: none Estimated blood loss (mL): 100 Procedure: 1.? anterior diskectomy C5/6 2.? anterior diskectomy C6/7 3.? corpectomy >50% C6 4.? Insertion of corpectomy cage C5-C7 5.? Anterior Instrumentation with anterior plate from C5-C7 6. use of allograft 7. Use of autograft from same incison The patient was taken to the operating room, where he underwent general endotracheal anesthesia without complications. He was then positioned supine on the operating table, and all areas of impingement were well padded. The arms were carefully padded and tucked at his sides. A roll was placed between the shoulder blades.. An x-ray was done to determine the appropriate level for the skin incision. The entire neck was then sterilely prepped and draped in the usual fashion.? Neuromonitoring was attached prior to prepping. A transverse skin incision was made and carried down to the platysma muscle. This was then split in line with its fibers. Blunt dissection was carried down medial to the carotid sheath and lateral to the trachea and esophagus until the anterior cervical spine was visualized. A needle was placed into a disc and an x-ray was done to determine its location. The longus colli muscles were then elevated bilaterally with the electrocautery unit. Self-retaining retractors were placed deep to the longus colli muscle. ?Attention was brought to the C5-7 level that was confirmed on x-ray. A caspar pin was placed into the C5 vertebrae and the [id number].? ? An anterior discectomy was performed at C5-6 and C6-7.? This was done by using a high-speed bur to take down the spinous and then curved curette and then once the disc was taken down to the posterior longitudinal ligament and the Kerrison rongeurs and curved curettes were used to remove the larger ligaments of the dura was exposed.? And then this was done at the C5/6 and C6/7 disc space as well.? Completely opening up the disc space.? Then a high-speed bur was used to perform the corpectomy.? This was done by taking down the vertebral body both on the right left side as well as using a rongeur until it was taken down to the posterior longitudinal ligament.? And then a curved curette and Kerrison rongeur were used to take out the posterior longitudinal ligament out to the dura and this was taken down from C5-C7 with the Goodrich pins distracting.? Large amount of disc was behind his vertebrae which was taken out. Next attention was brought to measuring the size of the corpectomy cage.? Is measured to be 28.? This was a [employer] corpectomy cage.? The cage was packed with autograft from the corpectomy as well as allograft which was the ostial amp bone graft.? The cage was then placed from C5-C7 and C-arm ensured there was in good position. The appropriate size anterior cervical locking plate was chosen and bent into gentle lordosis. Two screws were then placed into each of the vertebral bodies at C5 and C7. There was excellent purchase. A final x-ray was done confirming good position of the hardware and Cages. The locking screws were then applied, also with excellent purchase. Following a final copious irrigation, there was good hemostasis and no dural leaks. The carotid pulse was strong. The wounds were then closed in layers using 2-0 Vicryl suture for the platysma muscle, 2-0 Vicryl suture for the subcutaneous tissue, and 4-0 monocryl suture in a subcuticular skin closure. Glue was placed followed by application of a sterile dressing. The drain was hooked to bulb suction. A soft collar was applied.
[2022-07-09] MEDS: ketorolac 30 mg/mL INJ IVP (15:05)
--- NOTE | 2022-07-09 16:27 | ANE.PACU2 ---
Inpatient post-anesthesia follow up: Airway intact: Yes Vital signs: Temperature 97.4 F Pulse Rate 63 Respiratory Rate 18 Blood Pressure 129/86 Pulse Oximetry 95 Oxygen Delivery Me thod Room Air Oxygen Flow Rate 10 Fraction of Inspir ed Oxygen Hydration adequate: Yes Nausea and vomiting: No Pain level: 1 Mental status: Baseline
[2022-07-09] MEDS: HYDROcodone-acetaminophen 5-325 mg Tablet PO ×2 (16:58→21:22)
[2022-07-09] MEDS: lactated ringers 1,000 ML 90 ML IV (17:00)
[2022-07-09] MEDS: docusate sodium 100 mg Capsule PO (17:00)
[2022-07-09 17:14] LABS: Glucose Point of Care 117 mg/dL (70-110)
--- NOTE | 2022-07-09 18:20 | PC.NURSE ---
Pt resting in bed. Pt ambulated in [place] with and tolerated well. Pt AOx4, VSS, and no current needs at this time. Pt is drinking and eating some without issue. Room is neat and clean, call light within reach, and all questions and concerns were addressed.
[2022-07-09] MEDS: ondansetron 2 mg/ML SDV 2 mL 4 MG IVP (20:33)
[2022-07-10] MEDS: ketorolac 30 mg/mL INJ IVP ×2 (00:19→08:46)
[2022-07-10] MEDS: lactated ringers 1,000 ML 90 ML IV (01:25)
[2022-07-10] MEDS: ceFAZolin 2,000 MG in sodium chloride 0.9% (plus) 50 ML 100 MG IV (01:25)
[2022-07-10 04:00] VITALS: BP 133/81; PULSE 75; RESP 16; TEMP 36.7; O2SAT 96
[2022-07-10] MEDS: pantoprazole DR 40 mg Tablet PO (05:21)
[2022-07-10] MEDS: lisinopril 20 mg Tablet 30 MG PO (05:21)
[2022-07-10] MEDS: fenofibrate 145 mg Tablet PO (05:21)
[2022-07-10] MEDS: amlodipine 10 mg Tablet PO (05:22)
[2022-07-10] MEDS: HYDROcodone-acetaminophen 5-325 mg Tablet PO (05:25)
[2022-07-10 08:00] VITALS: BP 141/79; PULSE 61; RESP 15; TEMP 36.7; O2SAT 94
--- NOTE | 2022-07-10 08:09 | PM.PN ---
Subjective Subjective: POD 1 Resting comfortably. Reports neck pain arm symptoms have improved. Denies any swallowing difficulties denies any voice changes, denies any headaches or shortness of breath. Vitals/I&O/Wt Last Vital Signs Temp 98.1 F 07/10/22 04:00 Pulse 75 07/10/22 04:00 Resp 16 07/10/22 04:00 BP 133/81 07/10/22 04:00 Pulse Ox 96 07/10/22 04:00 O2 Del Method 07/09/22 23:21 O2 Flow Rate 10 07/09/22 12:40 07/09/22 07/10/22 07/10/22 22:59 06:59 14:59 Intake Total 524 / 574 807.5 / 1381.5 Balance 524 / 474 807.5 / 1281.5 Physical Exam Narrative: Patient is alert and oriented x3 with a good general appearance normal mood and affect. Nontender with palpation about the incisional site. Incision appears to be clean and dry without signs of erythema or drainage. No signs of infection. Good motor strength throughout both upper extremities. Appears to fire in all motor groups with 5/5 strength. Hands are warm good cap refill in all digits. Normal sensation to light touch in all dermatomal areas. A&P Assessment and plan (1) Status post cervical spinal fusion: Physical therapy to mobilize. Will discharge home later this morning. See her back in the office in 1 week's time for wound check. She will call if she is having problems. Continue incentive spirometry for pulmonary toilet. Attestations Medical Necessity Statement*: Discharge home later this morning Coding Level of Care Code Acute Code for Chg Fwd Diagnoses Status post cervical spinal fusion Z98.1
[2022-07-10] MEDS: ondansetron 2 mg/ML SDV 2 mL 4 MG IVP (08:46)
[2022-07-10] MEDS: docusate sodium 100 mg Capsule PO (08:47)
[2022-07-10 10:55] VITALS: BP 141/79; PULSE 61; RESP 15; TEMP 36.7; O2SAT 94
--- NOTE | 2022-07-12 15:21 | P.DS_ITS ---
Discharge Providers Date of Admission: 07/09/22 12:32 Date of Discharge: July 10, 2022 Attending Provider at Admission: Chi May DO Attending Provider at Discharge: Chi May DO Primary Care Provider: Amada Rivers Diagnoses at Discharge Discharge Diagnosis (1) Status post cervical spinal fusion: Status: Acute Reason for Visit Reason for Visit: ACDF C5/6 6/7 [id number] Hospital Course Hospital Course pain controlled Discharge Data Studies Completed and Pending Completed Studies During Hospitalization Category Date Time Status XR cervical spine 3V* [id number] Routine Exams 07/09/22 Completed Laboratory Results POC Glucose 117 mg/dL (70-110) H 07/09/22 17:10 Vitals Last Vital Signs Temp 98.0 F 07/10/22 10:55 Pulse 61 07/10/22 10:55 Resp 15 07/10/22 10:55 BP 141/79 07/10/22 10:55 Pulse Ox 94 07/10/22 10:55 O2 Del Method 07/10/22 08:00 O2 Flow Rate 10 07/09/22 12:40 Discharge Plan Discharge Patient Disposition: Home Condition: Stable Prescriptions: New hydrocodone-acetaminophen 5-325 mg Tablet 1 - 2 tab PO Q4H PRN (Reason: Moderate To Severe Pain) Qty: 30 0RF Continued amlodipine 10 mg tablet 10 mg PO QAM lisinopril 20 mg tablet 30 mg PO QAM tizanidine 4 mg capsule 4 mg PO TID PRN (Reason: Muscle Spasm) fenofibrate nanocrystallized 145 mg tablet 145 mg PO QAM levocetirizine [Xyzal] 5 mg tablet 5 mg PO QAM Trulicity 0.75 mg/0.5 mL pen injector 0.75 mg SUBCUT Q7D Rx Instructions: takes on wednesdays (DME) Intraoperative Neuromonitoring See Rx Instructions .Route .MEDSUPPLY Qty: 1 0RF Rx Instructions: As directed pantoprazole [Protonix] 40 mg Tablet,Delayed Release (Dr/Ec) 40 mg PO QAM Tylenol Extra Strength 500 mg tablet 1,000 mg PO Q6H PRN (Reason: Pain) sumatriptan succinate 50 mg tablet 50 mg PO PRN No Action EpiPen 2-Nathan 0.3 mg/0.3 mL auto-injector See Rx Instructions .ROUTE .COMPLEX Rx Instructions: as directed prn Xhance 93 mcg/actuation aerosol breath activated 2 spray INTRANASAL BID Discharge Orders: Discharge Order (Routine); Ordered 07/10/22 Ordered By: Ant Wells Referrals: Chi May DO [Physician] - 07/24/22 10:30 am Discharge Diet: Advance as tolerated Discharge Activity: Limit activity as instructed Patient Instructions: Hydrocodone/Acetaminophen (By mouth), Cervical Spinal Stenosis (GEN), Opioid Safety Activity Restrictions/Additional Instructions: Thank you for choosing [facility] for your care! The following is a list of instructions, from your provider, to follow upon your discharge to ensure you have the optimal recovery from your recent injury or surgery. Anterior Cervical Discectomy and Fusion: What to Expect at Home Your Recovery Follow-up care is a jamil part of your treatment and safety. Be sure to make and go to all appointments, and call your doctor if you are having problems. If you do not already have a follow-up appointment made, call office in the next 1-3 days to make follow up appointment for 1 weeks at [phone]. It is also a good idea to know your test results and keep a list of the medicines you take. You can expect your neck to feel stiff or sore after surgery. This should improve in the weeks after surgery. But it may take 4 to 6 months for you to get better completely. You may have trouble sitting or standing in one position for very long and may need pain medicine in the weeks after your surgery. It may take 4 to 6 weeks to get back to your usual activities, but it may depend on what kind of surgery you had. Your throat will feel sore and it may be difficult to swallow for the first 3 days after your surgery. As long as you can get liquids down without difficulty, this should slowly improve, otherwise call our office or seek medical attention if it becomes increasingly difficult to get anything down including liquids. Avoid hot liquids for first 3-5 days. Soothing foods/liquids such as jello, pudding, and luke warm soups are recomme nded until swallowing improves. Staying elevated will also help, it's advised you keep propped up at while sleeping to help reduce the swelling. You may use an ice pack directly on your incision or around it on the front of your neck, using a cloth to protect your skin; and a heating pad to the back of your neck as needed. Do not use over the counter anti-inflammatory medications (Ibuprofen, Motrin, Aleve, Advil, etc) Taking these meds after having a fusion can delay fusion rates, we recommend you avoid them for the first [address] your surgery[address]. May may advise you to work with a physical therapist to strengthen the muscles around your neck and back - this will be discussed at your follow - up appointments. The pain or numbness you were having in your arms before surgery should get better or go away completely. This care sheet gives you a general idea about how long it will take for you to recover. But each person recovers at a different pace. Follow the steps below to get better as quickly as possible. How can you care for yourself at home? Activity ? Rest when you feel tired. Getting enough sleep will help you recover. ? Try to walk each day. Start by walking a little more than you did the day before. Bit by bit, increase the amount you walk. Walking boosts blood flow and helps prevent pneumonia and constipation. Walking may also decrease your muscle soreness after surgery. ? No lifting anything that is more that 5 pounds. This may include heavy grocery bags and milk containers, a heavy briefcase or backpack, cat litter or dog food bags, a child, or a vacuum boat cleaner. ? Avoid strenuous activities, such as bicycle riding, jogging, weightlifting, or aerobic exercise, until your doctor says it is okay. ? Do not drive until your follow-up visit after your surgery, or until your doctor says it isokay. ? Avoid taking long car trips for 2 to 4 weeks after surgery. Your neck may become tired and painful from sitting too long in one position. ? You will probably need to take 4 to 6 weeks off from work. It depends on the type of work you do and how you feel. ? You may have sex as soon as you feel able, but avoid positions that put stress on your neck or cause pain. Diet ? You can eat your normal diet. If your stomach is upset, try bland, low-fat foods like plain rice, broiled chicken, toast, and yogurt ? Drink plenty of fluids. If you have kidney, heart, or liver disease and have to limit fluids, talk with your doctor before you increase the amount of fluids you drink. ? You may notice that your bowel movements are not regular right after your surgery. This is common. Try to avoid constipation and straining with bowel movements. You may want to take a fiber supplement every day. If you have not had a bowel movement after a couple of days, ask your doctor about taking a mild laxative. Medicines ? Take pain medicines exactly as directed. 1. If Dr. May gave you a prescription medicine for pain, take lt as prescribed. 2. Do not take two or more pain medicines at the same time unless the doctor told you to. Many pain medicines have acetaminophen, which is Tylenol. Too much acetaminophen {Tylenol) can be harmful. 3. If you think your pain pill is making you sick to your stomach: 4. Take your pills after meals (unless your doctor has told you not to). 5. Ask your Dr. for a different pain pill. Incisioncare ? Remove your dressing 48 hours after your surgery. Ok to shower and get the incision wet. Do not overtly wash your incision. When done, pad dry, leave open to air thereafter. Avoid creams and ointments directly on your incision. ? Your sutures in the incision will dissolve and fall out on their own. ? Keep the area clean and dry. You may cover it with a gauze bandage if it weeps or rubs against clothing; if you choose to do this, change the dressing everyday. Other instructions ? Use a heating pad, hot water bottle, or gentle massage on your back to reduce stiffness. Avoid putting heat on your incision When should you call for help? ? Call 911 anytime you think you may need emergency care. For example, call if: ? You pass out (lose consciousness). ? You have sudden chest pain and shortness of breath, or you cough upblood. ? You cannot swallow. ? You have severe pain in your neck or back. ? Call your Dr. or seek immediate medical care if: ? You have pain that does not get better after you take pain pills. ? You have loose stitches, or your incision comes open. ? You have blood or fluid draining from the incision. ? You have signs of infection, such as: 1. Increased pain, swelling, warmth, or redness. 2. Red streaks leading from the site. 3. Pus draining from the site. 4. Swollen lymph nodes in your neck or armpits. 5. A fever. ? You have severe pain in your arms. ? You have new or increased weakness or numbness in your arms. ? Watch closely for any changes in your health, and be sure to contact your doctor if: ? You do not have a bowel movement after taking a laxative. Discharge Attestations Time Spent in Discharge Care*: less than 30 min Quality Metrics Clinical Quality Measures [ No reported AMI, CVA or VTE this stay] Coding Level of Care Code Acute Chg FW DC note Diagnoses Status post cervical spinal fusion Z98.1
== END 2022-07-10 10:56 | disposition home or self-care (01) | DRG 473 ==
LOC: MEDSURG 07-10 05:18
PROVIDERS: Admitting Provider Orthopaedic Surgery; PCP Nurse Practitioner Family; Visit Provider Orthopaedic Surgery
PROC: 0RB30ZZ Excision of Cervical Vertebral Disc, Open Approach (ICD-10-PCS; CPT 22551; principal; 2022-07-09 09:40)
PROC: 0RT30ZZ Resection of Cervical Vertebral Disc, Open Approach (ICD-10-PCS; 2022-07-09 09:40)
DX: M47.12 Other spondylosis with myelopathy, cervical region (principal); M47.22 Other spondylosis with radiculopathy, cervical region
CPT/HCPCS: 36416; 72040; 76000; 82962; 97110; 97161; C1713; C9359; J0330; J0690; J1170; J1200; J1720; J1885; J2405; J2704; J2710; J3010; J3490; J3535; J7030; J7120; L0172

== ENCOUNTER → 2022-07-24 10:34 | Outpatient (BNVA) | payer MEDICAID, SELFPAY | PROVIDERS: PCP Nurse Practitioner Family; Visit Provider Physician Assistant | DX: Z98.1 Arthrodesis status (principal) | CPT/HCPCS: 72040; 99024 ==

== ENCOUNTER → 2022-08-21 09:19 | Outpatient (BNVA) | payer MEDICAID, SELFPAY | PROVIDERS: PCP Nurse Practitioner Family; Visit Provider Physician Assistant | DX: Z98.1 Arthrodesis status (principal); R20.2 Paresthesia of skin | CPT/HCPCS: 72040; 99024 ==

== ENCOUNTER 2022-08-21 15:08 | Outpatient (CLI) | payer MEDICAID, SELFPAY | END 2022-08-21 15:09 | disposition home or self-care (01) | LOC: SPT 15:09 | PROVIDERS: PCP Nurse Practitioner Family; Visit Provider Physician Assistant | DX: Z46.89 Encounter for fitting and adjustment of other specified devices (principal); Z98.1 Arthrodesis status; M25.531 Pain in right wrist | CPT/HCPCS: 97760; L3908 ==

== ENCOUNTER → 2022-10-02 09:26 | Outpatient (BNVA) | payer MEDICAID, SELFPAY | PROVIDERS: PCP Nurse Practitioner Family; Visit Provider Physician Assistant | DX: Z98.1 Arthrodesis status (principal); R20.2 Paresthesia of skin; R13.10 Dysphagia, unspecified | CPT/HCPCS: 72040; 99213 ==

== ENCOUNTER 2022-11-09 07:32 | Outpatient (CLI) | payer MEDICAID, SELFPAY ==
--- NOTE | 2022-11-09 07:43 | CT_ITS ---
WS: [id number] CT NECK TECHNIQUE: Contrast-enhanced CT of the neck with coronal and sagittal reformatted images. CLINICAL INFORMATION: DYSPHAGIA COMPARISON: None. DLP: 248.[address] scans at [facility] use at least one of these dose optimization techniques: automated e xposure control; mA and/or kV adjustment per patient size (includes targeted exams where dose is matc hed to clinical indication); or iterative reconstruction. FINDINGS: Straightening of the normal cervical lordosis. Slight anterolisthesis C2 on C3 and C4 on C5. ACDF C5- C7 with corpectomy and interbody strut graft at C6. Partially visualized mastoid air cells are well aerated. Soft tissue opacification RIGHT maxillary si nus with dilatation of the maxillary infundibulum. Polypoid lesion extends into the posterior nasal c avity with involvement of the middle meatus. Findings suspicious for antrochoanal polyp or possibly i nverted papilloma. No bony destruction. Recommend direct visualization. Otherwise normal posterior nasopharynx. Normal parapharyngeal fat. Parotid glands are normal. Normal submandibular glands. Heterogeneous nodular thyroid isthmus measuring 12 x 13 mm. Lung apices are well aerated. Normal enhancing palatine tonsils. Tongue base appears normal. Normal p arapharyngeal fat. No cervical lymphadenopathy. CT/CT neck w con* [id number] IMPRESSION: 1. No evidence of supraglottic or glottic mass. Normal posterior nasopharynx. 2. Suspected RIGHT antrochoanal polyp expanding the RIGHT maxillary infundibul um and extending posteriorly into the nasal cavity. Complete opacification RIGH T maxillary sinus. Recommend direct visualization. Inverted papilloma additiona l consideration 3. Mastoid air cells well aerated. 4. No cervical lymphadenopathy. 5. Normal salivary glands. 6. Postoperative changes cervical spine as described above. 7. Heterogeneous thyroid isthmus nodule measuring 12 x 13 mm.
--- NOTE | 2022-11-09 07:43 | FL_ITS ---
WS: [id number] Barium swallow and esophagram, 11/09/2022 Clinical Data: DYSPHAGIA Comparison: None. Fluoroscopy time: 1min [id number] # of spot films: 20 Findings: The patient swallowed the thick and thin barium, and it flowed through the hypopharynx without hesita tion. No stricture, mass, polyp or erosion was seen. There is a C5-C7 anterior cervical disc fusion w ith a cage occupying C6. The barium entered the esophagus and there was normal motility throughout. No stricture, polyp, mass, erosion or ulcer was noted. There was a small sliding hiatal hernia with moderate esophageal reflux. FL/FL barium swallow [id number] Impression: Small sliding hiatal hernia with moderate gastroesophageal reflux.
[2022-11-09] MEDS: iohexol 350 mg/mL 500 mL Btl (per mL) IV (07:54)
== END 2022-11-09 07:33 | disposition home or self-care (01) ==
LOC: RAD 07:34
PROVIDERS: PCP Nurse Practitioner Family; Visit Provider Specialist
DX: R13.10 Dysphagia, unspecified (principal); K44.9 Diaphragmatic hernia without obstruction or gangrene; K21.9 Gastro-esophageal reflux disease without esophagitis
CPT/HCPCS: 70491; 74220; Q9967

== ENCOUNTER 2022-11-13 06:16 | Outpatient (CLI) | payer MEDICAID, SELFPAY ==
--- NOTE | 2022-11-13 | US_ITS ---
WS: [id number] RENAL ULTRASOUND HISTORY: RENAL CYST COMPARISON: 09/26/2020, renal ultrasound 10/05/2020 TECHNIQUE: 2-D and color Doppler imaging of the kidney submitted. Right kidney: 11.6 cm x 4.7 cm x 5.0 cm. Cortex: 1.2 cm Normal size kidney. Again noted is a hypoechoic mass in the mid kidney extending laterally measuring 2.3 x 2.5 x 2.3 cm. There is an adjacent calcification. Mass is very similar in size to prior CT of . Not visualized on a prior renal ultrasound probably due to patient's body habitus. There is no through-transmission. Left kidney: 12.8 cm x 4.2 cm x 6.8 cm. Cortex: 1.7 cm Normal echogenicity with no hydronephrosis or mass. Aorta: Normal. Urinary Bladder: Minimal distention. US/US renal BI* [id number] IMPRESSION: 1. Hypoechoic solid-appearing mass in the mid RIGHT kidney measures 2.3 x 2.5 x 2.3 cm. Differential includes low-grade neoplasm or complex cyst. Stable in s ize since 09/26/2020. To confirm simple cyst consider MRI renal protocol with an d without contrast or CT with and without IV contrast. 2. No obstruction.
== END 2022-11-13 06:17 | disposition home or self-care (01) ==
LOC: RAD 06:16
PROVIDERS: PCP Nurse Practitioner Family; Visit Provider Nurse Practitioner Family
DX: N28.1 Cyst of kidney, acquired (principal); N28.89 Other specified disorders of kidney and ureter
CPT/HCPCS: 76770

== ENCOUNTER 2022-11-16 07:52 | Outpatient (CLI) | payer MEDICAID, SELFPAY ==
--- NOTE | 2022-11-16 08:00 | FL_ITS ---
WS: [id number] Exam: FL barium swallow modifd [id number] Date/Time of Exam: 11/16/2022 8:30 AM Reason For Exam: Other dysphagia Fluoroscopy time: 1min [id number] minutes # of spot films: Modified barium swallow performed in conjunction with the speech therapy service. Swallowing function at the level of oropharynx was normal. The patient tolerated thin liquid, nectar consistency, pudding consistency and solid barium mixture foodstuffs without aspiration or penetratio n. The patient ingested a barium tablet without complication. FL/FL barium swallow modifd [id number] IMPRESSION: 1. Unremarkable modified barium swallow. No aspiration or penetration identifie d. A separate report and recommendations will follow from the speech therapy servi ce.
== END 2022-11-16 07:53 | disposition home or self-care (01) ==
LOC: RAD 07:54
PROVIDERS: PCP Nurse Practitioner Family; Visit Provider Specialist
DX: R13.19 Other dysphagia (principal)
CPT/HCPCS: 74230; 92611

== ENCOUNTER 2022-11-28 06:53 | Outpatient (CLI) | payer MEDICAID, SELFPAY ==
--- NOTE | 2022-11-28 07:15 | MR_ITS ---
WS: [id number] MRI OF THE ABDOMEN WITHOUT AND WITH GADOLINIUM ENHANCEMENT TECHNIQUE: Coronal T2 Fase BH, Axial T2 Fase BH, Axial T2 FS BH, Zxial 3D Rincon BH, Axial DWI BH and Axial 3D Dyn BH Post sequences. CLINICAL INFORMATION: KIDNEY MASS CYST COMPARISON: Ultrasound 11/13/2022 and 09/12/2021 FINDINGS: Previously described mid RIGHT kidney lesion appears to represent a complex cyst with blood products and hematocrit level. This demonstrates T1 and T2 hyperintensity. No abnormal gadolinium enhancement. Findings compatible with complex hemorrhagic cyst. Additional simple appearing bilateral renal cysts . No enhancing renal lesions. No hydronephrosis in either kidney. Diffuse fatty infiltration liver. Mild hepatomegaly. Prior cholecystectomy. Splenic cyst measuring 3. 1 cm unchanged since the prior CT. Normal portal vein and splenic vein. Normal common bile duct. Naqvi creatic head is normal in appearance. Tiny esophageal hiatal hernia. Small LEFT adrenal adenoma measuring 8 mm. Normal RIGHT adrenal gland. Normal pancreas. Normal caliber upper abdominal aorta. MR/MR abdomen wo/w con* [id number] Impression: 1. Previously described lesion mid RIGHT kidney represents a complex hemorrhag ic cyst. No abnormal enhancement. 2. Otherwise small bilateral renal cysts. No enhancing renal lesions. 3. No hydronephrosis in either kidney. 4. Incidental splenic cyst measuring 3.1 cm is unchanged. 5. Mild hepatomegaly with diffuse fatty infiltration. 6. Prior cholecystectomy. 7. Small 8 mm LEFT adrenal adenoma.
[2022-11-28] MEDS: gadobenate dimeglumine 20 mL vial IV (07:52)
== END 2022-11-28 06:54 | disposition home or self-care (01) ==
LOC: RAD 06:54
PROVIDERS: PCP Nurse Practitioner Family; Visit Provider Nurse Practitioner Family
DX: N28.1 Cyst of kidney, acquired (principal); K76.0 Fatty (change of) liver, not elsewhere classified; R16.0 Hepatomegaly, not elsewhere classified; D35.02 Benign neoplasm of left adrenal gland; Z90.49 Acquired absence of other specified parts of digestive tract
CPT/HCPCS: 74183; A9577

== ENCOUNTER 2023-01-11 10:26 | Outpatient (CLI) | payer MEDICAID, SELFPAY ==
--- NOTE | 2023-01-11 11:03 | MM_ITS ---
WS: [id number] DIAGNOSTIC BILATERAL DIGITAL BREAST TOMOSYNTHESIS MAMMOGRAPHY WITH CAD LEFT breast ultrasound, limited. HISTORY: MOLE ON RT BREAST COMPARISON: None available. TECHNIQUE: Bilateral craniocaudad, mediolateral oblique, and mediolateral views are submitted with to mosalberto and SM. Computer aided detection utilized. Breast composition: The breasts are heterogeneously dense, which may obscure small masses. Well-circu mscribed 9 mm mass anterior LEFT breast inferior and lateral to the nipple. No additional masses or s uspicious findings. LEFT breast ultrasound, limited. Hypoechoic nodule LEFT breast at 6:00 adjacent to the areolar. Mass with echogenic margins measures 7 x 6 x 8 mm with significant increased vascularity. This does correspond to the mammographic abnormal ity. MM/[place] [id number] IMPRESSION: BI-RADS: 4-Suspicious Finding-Biopsy Should Be Considered FOLLOW UP: Biopsy Recommended Ultrasound-guided biopsy recommended LEFT breast mass at 6:00. Notified ALEXANDRIA Chang at 01/11/2023 1:38 PM. Message LEFT on the nurs e triage line.
== END 2023-01-11 10:27 | disposition home or self-care (01) ==
LOC: RAD 10:35 → MOBLMAM 10:37 → RAD 10:53
PROVIDERS: PCP Nurse Practitioner Family; Visit Provider Nurse Practitioner Family
DX: Z12.31 Encounter for screening mammogram for malignant neoplasm of breast (principal); N63.42 Unspecified lump in left breast, subareolar; D22.5 Melanocytic nevi of trunk
CPT/HCPCS: 76642; 77062; G0279

== ENCOUNTER → 2023-01-30 14:31 | Outpatient (BNVA) | payer MEDICAID, SELFPAY | PROVIDERS: PCP Nurse Practitioner Family; Visit Provider Dermatology | DX: D48.5 Neoplasm of uncertain behavior of skin (principal); L81.4 Other melanin hyperpigmentation; D22.5 Melanocytic nevi of trunk; L30.0 Nummular dermatitis | CPT/HCPCS: 11102; 99204 ==

== ENCOUNTER → 2023-02-05 13:42 | Outpatient (BNVA) | payer MEDICAID, SELFPAY | PROVIDERS: PCP Nurse Practitioner Family; Visit Provider Physician Assistant | DX: M70.61 Trochanteric bursitis, right hip (principal); M47.816 Spondylosis without myelopathy or radiculopathy, lumbar region; M43.16 Spondylolisthesis, lumbar region | CPT/HCPCS: 72110; 99214 ==

== ENCOUNTER 2023-04-16 20:00 | Outpatient (CLI) | payer MEDICAID, SELFPAY | END 2023-04-16 20:01 | disposition home or self-care (01) | LOC: SLEEP 04-17 05:46 | PROVIDERS: PCP Nurse Practitioner Family; Visit Provider Nurse Practitioner Family | DX: G47.33 Obstructive sleep apnea (adult) (pediatric) (principal); E66.01 Morbid (severe) obesity due to excess calories | CPT/HCPCS: 95810 ==

== ENCOUNTER → 2023-07-11 08:04 | Outpatient (BNVA) | payer MEDICAID, SELFPAY | PROVIDERS: PCP Nurse Practitioner Family; Visit Provider Orthopaedic Surgery | DX: M79.604 Pain in right leg; M43.16 Spondylolisthesis, lumbar region | CPT/HCPCS: 72110; 99214 ==

== ENCOUNTER 2023-08-06 08:25 | Outpatient (CLI) | payer MEDICAID, SELFPAY ==
--- NOTE | 2023-08-06 08:45 | MR_ITS ---
WS: [id number] MRI LUMBAR SPINE NONCONTRAST HISTORY: back pain COMPARISON: 05/16/2022 TECHNIQUE: Sagittal and axial multisequence imaging is submitted. Localizer demonstrates straightening of the normal cervical lordosis. Anterior cervical fusion. Disc osteophyte encroachment upon the ventral thecal sac at C4-5 and C5-6. Normal lumbar alignment. There is a small amount of marrow edema in the L4 LEFT pedicle and facet. Th ere is a small amount of soft tissue edema involving the LEFT L3, L4 and L5 periarticular soft tissue s Mild disc narrowing and desiccation at L4-5 and L5-S1. Conus terminates normally at L1-2 disc level. L1-L2: Mild annular disc bulging and facet arthritis. Mild foraminal narrowing. No interval change. L2-L3: Mild annular disc bulging with a tiny central disc protrusion. The disc protrusion appears new since the prior study. Ligamentum flavum and facet arthritis. There is mild progression of central s tenosis. Still mild central, bilateral subarticular recess and foraminal stenosis. L3-L4: Mild annular disc bulging with ligamentum flavum and facet arthritis. Disc encroachment upon t he ventral thecal sac. Mild central with moderate bilateral subarticular recess and foraminal stenosi s. There is significant encroachment with deformity involving the L3 and L4 nerve roots bilaterally. L4-L5: Diffuse annular disc bulging is slightly asymmetric to the LEFT. Marked ligamentum flavum and facet arthritis. Fluid in the facet joints. Moderate central, bilateral subarticular recess and arnold inal stenosis. There is significant contact and deformity on the exiting L4 nerve roots. There is als o mild encroachment and contact on the traversing L5 nerve roots. L5-S1: Mild annular disc bulging with a tiny central disc protrusion. Moderate ligamentum flavum hype rtrophy and facet arthritis. Mild to moderate bilateral foraminal and subarticular recess stenosis. S imilar to the prior study. LEFT renal cyst 2.1 cm. IMPRESSION: 1. Small thecal sac probably due to short pedicles. 2. L3-4: Mild central with moderate bilateral subarticular recess and foraminal stenosis. Multifacto rial encroachment upon the L3 and L4 nerve roots. Not significantly progressed since the prior study. 3. L4-5: Severe ligamentum flavum and facet arthritis. Fluid in the facet joints. Moderate central, bilateral subarticular recess and foraminal stenosis. There is significant contact and deformity upon the exiting L4 nerve roots with mild encroachment on the traversing L5 nerve roots. 4. L5-S1: Mild to moderate bilateral foraminal and subarticular recess stenosis. Unchanged. 5. L2-3: Very mild central and bilateral subarticular recess and foraminal stenosis. 6. New marrow edema in the LEFT L4 pedicle and facet with associated periarticular soft tissue edema . There may be a pars defect but this would be better visualized by CT. No pars defects were noted o n a prior CT from 09/12/2021.
== END 2023-08-06 08:26 | disposition home or self-care (01) ==
LOC: RAD 08:26
PROVIDERS: PCP Nurse Practitioner Family; Visit Provider Orthopaedic Surgery
DX: M48.07 Spinal stenosis, lumbosacral region (principal); M47.817 Spondylosis without myelopathy or radiculopathy, lumbosacral region; M79.604 Pain in right leg
CPT/HCPCS: 72148

== ENCOUNTER → 2023-08-09 13:39 | Outpatient (BNVA) | payer MEDICAID, SELFPAY | PROVIDERS: PCP Nurse Practitioner Family; Referring Provider Nurse Practitioner Family; Visit Provider Orthopaedic Surgery | DX: M48.062 Spinal stenosis, lumbar region with neurogenic claudication; Z01.812 Encounter for preprocedural laboratory examination | CPT/HCPCS: 36415; 80053; 81003; 85025; 99214 ==

== ENCOUNTER 2023-08-23 08:20 | Day surgery (SDC) | payer MEDICAID, SELFPAY ==
--- NOTE | 2023-08-22 13:14 | SUR.PREOP ---
08/22/23 1300 called pharmacy and spoke with Adelita about patients Alpha-Gal syndrome.
[2023-08-23] VITALS (12 sets, daily range): BP systolic 132–174; BP diastolic 58–115; PULSE 62–108; RESP 18; TEMP 36.1–36.4; O2SAT 97–100
--- NOTE | 2023-08-23 | XR_ITS ---
WS: [id number] INTRAOPERATIVE TECHNIQUE: 3 Spot fluoroscopic images for intraoperative purposes. FLUOROSCOPY TIME: 22 .9 seconds CLINICAL INFORMATION: RUTH PICS FINDINGS: Localization marker projected over RIGHT L4-5 and RIGHT L3-4 dorsally IMPRESSION: Images obtained for intraoperative purposes.
[2023-08-23] MEDS: sodium chloride 0.9% 1,000 ML 30 ML IV (09:00)
--- NOTE | 2023-08-23 09:28 | P.ANESASSM_ITS ---
Pre-Anesthetic Assessment Height/Weight: Height 1.73 m Weight 131.542 kg Temp Pulse Resp BP Pulse Ox O2 Del Method 97.0 F L 62 18 174/100 99 Room Air 08/23/23 08:57 08/23/23 08:57 08/23/23 08:57 08/23/23 08:57 08/23/23 08:57 08/23/23 08:59 Preop Diagnosis: Lumbar stenosis with neurogenic claudication Operation Date: 08/23/23 09:55 Proposed Procedures p Lumbar Spine Decompression Lumbar Decompression(Right) - Chi May DO Familial anesthetic complications: alpha-GAL Was Beta Rojas taken within 24 hours: N/A Was Clonidine taken within 24 hours: N/A Last intake: Intake Last Liquid Date 08/23/23 Last Liquid Time 06:30 Last Solid Date 08/23/23 Last Solid Time 22:30 Social Tobacco (john) and No alcohol Exam alert, oriented x 3 and regular rate & rhythm Airway Submandibular: within normal limits Cervical ROM: within normal limits Mallampati: Class II Dentition: chipped Pulmonary Sleep Apnea CV/HEM Hypertension GI Gastroesophageal Reflux Disease Metabolic Diabetes Mellitus and Morbid Obesity [facility] Lower Back Pain and Osteoarthritis/DJD Neuropsych Anxiety and Depression Anesthetic Plan ASA status: 3 Anesthesia: General Medications/Allergies Home Medications Medication Instructions Recorded Confirmed Last Taken Type amlodipine 10 mg tablet 10 mg PO QAM 07/17/19 08/22/23 08/23/23 06:30 History levocetirizine 5 mg tablet (Xyzal) 5 mg PO QAM 05/02/20 08/22/23 08/23/23 06:30 History pantoprazole 40 mg tablet,delayed 40 mg PO QAM 05/13/20 08/22/23 08/23/23 06:30 History release (Protonix) acetaminophen 500 mg tablet 1,000 mg PO Q6H PRN Pain 06/22/20 08/22/23 09/26/20 08:00 History (Tylenol Extra Strength) fenofibrate nanocrystallized 145 145 mg PO QAM 09/14/20 08/22/23 08/23/23 06:30 History mg tablet tizanidine 4 mg capsule 4 mg PO TID PRN Muscle Spasm 09/14/20 08/22/23 08/22/23 History sumatriptan succinate 50 mg tablet 50 mg PO PRN 04/12/21 03/08/24 01/31/24 History lisinopril 20 mg tablet 30 mg PO QAM 10/05/20 08/22/23 08/22/23 History dulaglutide 0.75 mg/0.5 mL 0.75 mg SUBCUT Q7D 05/20/22 08/22/23 08/14/23 History subcutaneous pen injector (Trulicity) epinephrine 0.3 mg/0.3 mL See Rx Instructions .Route .COMPLEX 07/10/22 08/22/23 Unknown History injection, auto-injector (EpiPen 2-Nathan) cock up splint #1 ea 08/21/22 08/09/23 Unknown Rx dupilumab 200 mg/1.14 mL 200 mg SUBCUT .2x a month 07/11/23 08/23/23 08/09/23 History subcutaneous pen injector (Dupixent) Allergies Allergy/AdvReac Type Severity Reaction Status Date / Time Alpha-Gal Allergy Unknown Verified 08/15/23 13:52 (Iptupnixk-Wuoqm-7,3-Gala fluticasone [From Flonase] Allergy migraine Verified 08/15/23 13:52 alpha galactosidase Allergy ALGY-Anaphy Uncoded 08/15/23 13:52 laxis [facility] Anesthesia Medical History delivery delivered X 2 Surgical History H/O: hysterectomy H/O tubal ligation Family History Father , AT AGE 49 Esophageal varices with bleeding Mother , AT AGE 66 Cirrhosis of liver Grandmother Cancer kidney Grandfather AML (acute myeloblastic leukemia) Social History Smoking and tobacco/nicotine status: never used tobacco/nicotine Second hand smoke exposure: Yes Alcohol intake: never Substance/Drug Use: current Substance/Drug use frequency: daily Marital status: Current occupational status: disabled Data Anesthesia Cardiac Studies: Holter Monitor 05/30/22
--- NOTE | 2023-08-23 10:42 | W.PM.OPSUD ---
Surgery/Procedure H&P Update DATE OF PROCEDURE: August 23, 2023 DATE H&P PERFORMED: 08/15/23 H&P UPDATE INFORMATION: I have reviewed H&P completed within last 30 days, I have examined patient prior to procedure and No changes to prior documentation PREOP DIAGNOSIS: Lumbar stenosis with neurogenic claudication PLANNED PROCEDURE: Operation Date: 08/23/23 09:55 Proposed Procedures p Lumbar Spine Decompression Lumbar Decompression(Right) - Chi May DO
[2023-08-23] MEDS: ceFAZolin 2,000 MG in sodium chloride 0.9% (plus) 50 ML 100 MG IV (11:06)
[2023-08-23] MEDS: ceFAZolin 1,000 MG in sodium chloride 0.9% (plus) 50 ML 100 MG IV (11:45)
[2023-08-23] MEDS: lidocaine-epi 1% 20 mL INJ 10 ML INJECTION (12:01)
[2023-08-23] MEDS: fentaNYL 50 mcg/mL INJ 2mL IVP (12:51)
--- NOTE | 2023-08-23 12:57 | PM.OP ---
Operative Report Date of procedure: August 23, 2023 Pre-op diagnosis: Lumbar stenosis with neurogenic claudication Post-op diagnosis: same Procedure done: 1. L3-4 laminectomy with partial facetectomy 2. L4-5 laminectomy with partial facetectomy Surgeon: Chi May DO Estimated blood loss (mL): 15 Procedure: 1. L3-4 laminectomy with partial facetectomy 2. L4-5 laminectomy with partial facetectomy Patient is brought to the operative suite. After undergoing anesthesia they are placed in the prone position. All areas of impingement are well padded. Patient is then prepped and draped in the normal sterile fashion. A skin incision is made over the L3/4 level. This is confirmed under c-arm guidance. A series of dilators are passed and the tubular retractor is docked on the L3 lamina. A bovie is used to clear the soft tissue off the lamina and the L 3/4 facet joint. A high speed randee is then used to perform the laminectomy and take down the medial aspect of the L 3/4 facet joint. A kerrison rongeure was then used to take down the remaining lamina and smooth the edge of the laminectomy up to the point where the ligamentum flavum attaches. Attention was then brought to the medial aspect of the facet joint. The remaining medial aspect of the superior and inferior aspect of the facet joint were taken down with the kerrison from the pedicle of L3 to L 4. The facet joint had significant hypertrophy. Attention was then brought to the Ligamentum Flavum. The ligament was taken down from the lamina of L3 to L4 and out medially to the remaining facet joint. The ligament was thick. The dura was then exposed. The dura was in good repair. The L3 nerve was then traced with a curette out the L3/4 foramen and found to be adequately decompressed. The L4 nerve was traced with a curette around the L4 pedicle. The lateral recess was opened with a kerrison helping to further decompress the L4 nerve. Wound is then irrigated copiously with saline and surgiflo is used to stop any bleeding. The tubular retractor is removed and the A skin incision is made over the L4/5 level. This is confirmed under c-arm guidance. A series of dilators are passed and the tubular retractor is docked on the L4 lamina. A bovie is used to clear the soft tissue off the lamina and the L 4/5 facet joint. A high speed randee is then used to perform the laminectomy and take down the medial aspect of the L 4/5 facet joint. A kerrison rongeure was then used to take down the remaining lamina and smooth the edge of the laminectomy up to the point where the ligamentum flavum attaches. Attention was then brought to the medial aspect of the facet joint. The remaining medial aspect of the superior and inferior aspect of the facet joint were taken down with the kerrison from the pedicle of L4 to L 5. The facet joint had significant hypertrophy. Attention was then brought to the Ligamentum Flavum. The ligament was taken down from the lamina of L4 to L5 and out medially to the remaining facet joint. The ligament was thick. The dura was then exposed. The dura was in good repair. The L4 nerve was then traced with a curette out the L4/5 foramen and found to be adequately decompressed. The L5 nerve was traced with a curette around the L5 pedicle. The lateral recess was opened with a kerrison helping to further decompress the L5 nerve. Wound is then irrigated copiously with saline and surgiflo is used to stop any bleeding. The tubular retractor is removed and the wound is closed with vicryl and monocryl suture. Glue is then used to protect the wound. A sterile dressing is then placed. Patient was then placed in the supine position and transferred to the PACU in stable condition.
--- NOTE | 2023-08-23 14:23 | ANE.PACU2 ---
Inpatient post-anesthesia follow up: Airway intact: Yes Vital signs: Temperature 97.4 F Pulse Rate 73 Respiratory Rate 18 Blood Pressure 141/101 Pulse Oximetry 99 Oxygen Delivery Me thod Room Air Oxygen Flow Rate 5 Fraction of Inspir ed Oxygen Hydration adequate: Yes Nausea and vomiting: No Pain level: 3 Mental status: Baseline
[2023-08-26 05:29] LABS: Glucose Point of Care 118 mg/dL (70-110)
== END 2023-08-23 13:45 | disposition home or self-care (01) ==
PROVIDERS: PCP Nurse Practitioner Family; Visit Provider Orthopaedic Surgery
PROC: (CPT 63005; principal; 2023-08-23 09:45)
DX: M48.062 Spinal stenosis, lumbar region with neurogenic claudication (principal); G47.30 Sleep apnea, unspecified; I10 Essential (primary) hypertension; E11.9 Type 2 diabetes mellitus without complications; E66.01 Morbid (severe) obesity due to excess calories; Z68.41 Body mass index [BMI] 40.0-44.9, adult
CPT/HCPCS: 63047; 63048; 36416; 72100; 76000; 82962; J0131; J0330; J0690; J1100; J1200; J1885; J2250; J2405; J3010; J3490; J3535; J7030

== ENCOUNTER → 2023-09-05 10:19 | Outpatient (BNVA) | payer MEDICAID, SELFPAY | PROVIDERS: PCP Nurse Practitioner Family; Visit Provider Orthopaedic Surgery | DX: Z98.890 Other specified postprocedural states (principal) | CPT/HCPCS: 99024 ==

== ENCOUNTER → 2023-10-01 11:18 | Outpatient (BNVA) | payer MEDICAID, SELFPAY | PROVIDERS: PCP Nurse Practitioner Family; Visit Provider Orthopaedic Surgery | DX: Z98.890 Other specified postprocedural states (principal) | CPT/HCPCS: 99024 ==

== ENCOUNTER → 2023-11-12 07:52 | Outpatient (BNVA) | payer MEDICAID, SELFPAY | PROVIDERS: PCP Nurse Practitioner Family; Visit Provider Orthopaedic Surgery | DX: Z98.890 Other specified postprocedural states (principal) | CPT/HCPCS: 99024 ==

== ENCOUNTER → 2023-11-18 15:37 | Outpatient (BNVA) | payer MEDICAID, SELFPAY | PROVIDERS: Visit Provider Nurse Practitioner Family | DX: L08.9 Local infection of the skin and subcutaneous tissue, unspecified (principal); L02.426 Furuncle of left lower limb; L02.425 Furuncle of right lower limb; L02.32 Furuncle of buttock | CPT/HCPCS: 11104; 99213 ==

== ENCOUNTER 2023-11-27 09:28 | Outpatient (RCR) | payer MEDICAID, SELFPAY | END 2023-12-15 23:59 | disposition home or self-care (01) | LOC: SPT 09:28 | PROVIDERS: PCP Nurse Practitioner Family; Visit Provider Orthopaedic Surgery | DX: M54.50 Low back pain, unspecified (principal); G89.29 Other chronic pain | CPT/HCPCS: 97110; 97161 ==

== ENCOUNTER → 2023-11-28 10:18 | Outpatient (BNVA) | payer MEDICAID, SELFPAY | PROVIDERS: PCP Nurse Practitioner Family; Visit Provider Nurse Practitioner Family | DX: L73.2 Hidradenitis suppurativa (principal); D22.71 Melanocytic nevi of right lower limb, including hip; D22.72 Melanocytic nevi of left lower limb, including hip | CPT/HCPCS: 99214 ==

== ENCOUNTER 2023-12-16 06:00 | Outpatient (RCR) | payer MEDICAID, SELFPAY | END 2024-01-15 23:59 | disposition home or self-care (01) | LOC: SPT 06:00 | PROVIDERS: PCP Nurse Practitioner Family; Visit Provider Orthopaedic Surgery | DX: M54.50 Low back pain, unspecified (principal); G89.29 Other chronic pain | CPT/HCPCS: 97110 ==

== ENCOUNTER → 2024-01-02 08:41 | Outpatient (BNVA) | payer MEDICAID, SELFPAY | PROVIDERS: PCP Nurse Practitioner Family; Visit Provider Orthopaedic Surgery | DX: M54.9 Dorsalgia, unspecified (principal); Z98.890 Other specified postprocedural states | CPT/HCPCS: 99214 ==

== ENCOUNTER 2024-01-13 10:44 | Outpatient (CLI) | payer MEDICAID, SELFPAY ==
--- NOTE | 2024-01-13 10:54 | MM_ITS ---
WS: [id number] BILATERAL SCREENING DIGITAL TOMOSYNTHESIS MAMMOGRAM WITH CAD HISTORY: SCREENING COMPARISON: 01/09/2021, 01/11/2023 Bilateral CC and MLO views with tomosynthesis and synthetic mammography submitted. Computer aided det ection analyzed. Breast composition: There are scattered areas of fibroglandular density. No suspicious masses, microc alcifications or architectural distortion. New biopsy clip in the anterior LEFT breast. Biopsy result s of a benign fibroadenoma were noted by pathology report. No suspicious masses or calcifications wit hin either breast. MM/[place] [id number] IMPRESSION: BI-RADS: 2-Benign FOLLOW UP: 1 Year Follow-up
== END 2024-01-13 10:45 | disposition home or self-care (01) ==
LOC: RAD 10:45
PROVIDERS: PCP Nurse Practitioner Family; Visit Provider Nurse Practitioner Family
DX: Z12.31 Encounter for screening mammogram for malignant neoplasm of breast (principal); R92.323 Mammographic fibroglandular density, bilateral breasts
CPT/HCPCS: 77063; 77067

== ENCOUNTER → 2024-01-31 08:25 | Outpatient (BNVA) | payer MEDICAID, SELFPAY | PROVIDERS: PCP Nurse Practitioner Family; Visit Provider Nurse Practitioner Family | DX: L30.9 Dermatitis, unspecified (principal); L30.4 Erythema intertrigo; D22.39 Melanocytic nevi of other parts of face | CPT/HCPCS: 11104; 99213 ==

== ENCOUNTER 2024-02-04 09:13 | Outpatient (CLI) | payer MEDICAID, SELFPAY ==
--- NOTE | 2024-02-04 09:30 | MR_ITS ---
WS: [id number] MRI LUMBAR SPINE NONCONTRAST TECHNIQUE: Sagittal T1, T2 and STIR imaging. Axial T1 and T2 imaging. CLINICAL INFORMATION: back pain COMPARISON: MRI 08/06/2023 FINDINGS: Mild lumbar curve. No acute compression. Postoperative changes RIGHT L3-4 and RIGHT L4-5 hemilaminect omies are new compared to previous. L1-L2: Mild facet arthropathy. Spinal canal and foramina are patent. L2-L3: Tiny central LEFT paracentral protrusion. Mild central canal stenosis. This appears slightly p rogressed compared to previous. Narrowing of the LEFT subarticular recess. Mild LEFT and no significa nt RIGHT foraminal narrowing. Moderate facet arthropathy. L3-L4: Prior postoperative changes RIGHT hemilaminectomy. Slight narrowing of the RIGHT subarticular recess. Moderate facet arthropathy with ligamentum flavum hypertrophy. Mild bilateral foraminal narro wing. L4-L5: Slight anterolisthesis with mild disc bulging appears progressed compared to previous. Moderat e narrowing of the thecal sac appears progressed. RIGHT hemilaminectomy. Mild bilateral foraminal mary grace rowing. L5-S1: Mild annular bulging. Tiny central protrusion. Slight effacement of the ventral thecal sac. Ti ny annular fissure. Mild LEFT and no significant RIGHT foraminal narrowing. Moderate facet arthropath y. Visualized pelvic bony structures: Normal. Paravertebral soft tissues: Normal. Partially visualized small bilateral renal cysts. MR/MR lumbar spine wo con* [id number] IMPRESSION: 1. Postoperative changes RIGHT hemilaminectomies L3-L4 and L4-L5 are new delvin red to previous. 2. Mild narrowing of the RIGHT subarticular recess L3-4 with slight impingemen t of traversing RIGHT L4 nerve root. Mild RIGHT foraminal narrowing at this lev el. 3. Progressed moderate central canal stenosis L4-5 with progressed slight ante rolisthesis and progressed disc bulging at this level. Narrowing of the RIGHT g reater than LEFT subarticular recess. Moderate facet arthropathy with ligamentu m flavum hypertrophy. 4. Mild bilateral 4 5 foraminal narrowing. 5. Progressed mild central canal stenosis L2-3 with a tiny central/LEFT parace ntral protrusion. Mild LEFT foraminal narrowing. 6. Tiny annular fissure L5-S1 progressed compared to previous.
[2024-02-04 15:34] LABS: Charge for UA Resulting for Rev
[2024-02-04 15:37] LABS: Basophils % 0.3 %; Eosinophils # 0.3 10^3/uL (0.0-0.8); Eosinophils % 2.2 %; Hematocrit 45.8 % (36-47); Lymphocytes # 3.7 10^3/uL (0.8-4.8); Lymphocytes % 31.7 %; Mean Corpuscular HGB Conc 34.1 g/dL (30-55); Mean Corpuscular Hemoglobin 28.4 pg (27-33); Mean Corpuscular Volume 83.3 fl (85-98); Mean Platelet Volume 9.2 fL (7.4-10.4); Monocytes # 0.9 10^3/uL (0.2-0.9); Monocytes % 8.1 %; Neutrophils # 6.64 10^3/uL (1.8-7.7); Neutrophils % 57.4 %; Nucleated Red Blood Cells % 0 %; Platelet Count 437 10^3/cmm (157-399); Red Cell Distribution Width 12.3 % (12.1-15.1); White Blood Count 11.56 10^3/uL (3.29-11.43)
[2024-02-04 15:44] LABS: Bilirubin Urine Negative (Negative); Blood Urine Negative (Negative); Glucose Urine UA Negative (Normal); Ketones Urine Negative (Negative); Leukocyte Esterase Urine Negative (Negative); Nitrate Urine Negative (Negative); Protein Urine Negative (Negative); Specific Gravity, Urine 1.024 (1.005-1.030); Urine Appearance Clear (CLEAR); Urine Color Yellow (Yellow)
[2024-02-04 15:47] LABS: Bacteria Urine None Seen /hpf; Hyaline Casts Urine 3.71 /lpf; RBC Urine 0-2 /hpf (0-2); Squamous Epithelial Cell Urine 0-5 /hpf (0-5); WBC Urine 0-5 /hpf (0-5)
[2024-02-04 19:05] LABS: Alanine Aminotransferase 14 U/L (0-33); Albumin Level 4.3 g/dL (3.5-5.2); Alkaline Phosphatase 58 U/L (35-105); Anion Gap 18.7 (5-19); Aspartate Amino Transferase 16 U/L (0-32); Blood Urea Nitrogen 15 mg/dL (6-20); Calcium 9.5 mg/dL (8.5-10.5); Carbon Dioxide 23 mmol/L (22-29); Chloride 102 mmol/L (98-107); Globulin 3.2 g/dL (1.3-4.6); Glomerular Filtration Rate 59.4 mL/min (90-130); Glucose 88 mg/dL (65-115); Osmolality Calculated 290 mOsm/kg (285-295); Potassium 3.7 mmol/L (3.5-5.1); Sodium 140 mmol/L (136-145); Total Bilirubin 0.3 mg/dL (0.15-1.2); Total Protein 7.5 g/dL (6.6-8.7)
== END 2024-02-04 09:14 | disposition home or self-care (01) ==
LOC: RAD 09:15
PROVIDERS: PCP Nurse Practitioner Family; Visit Provider Orthopaedic Surgery
DX: M43.16 Spondylolisthesis, lumbar region (principal); M54.9 Dorsalgia, unspecified; M48.061 Spinal stenosis, lumbar region without neurogenic claudication; M51.36 Other intervertebral disc degeneration, lumbar region
CPT/HCPCS: 36415; 72148; 80053; 81003; 81015; 85025; 99214

== ENCOUNTER → 2024-02-07 11:10 | Outpatient (BNVA) | payer MEDICAID, SELFPAY | PROVIDERS: PCP Nurse Practitioner Family; Visit Provider Nurse Practitioner Family | DX: Z48.02 Encounter for removal of sutures (principal) | CPT/HCPCS: 99212 ==

== ENCOUNTER → 2024-02-21 11:45 | Outpatient (BNVA) | payer MEDICAID, SELFPAY | PROVIDERS: PCP Nurse Practitioner Family; Visit Provider Family Medicine | DX: Z01.818 Encounter for other preprocedural examination (principal); R00.1 Bradycardia, unspecified | CPT/HCPCS: 93005 ==

== ENCOUNTER 2024-02-26 17:15 | Observation (INO) | payer MEDICAID, SELFPAY ==
[2024-02-26] VITALS (12 sets, daily range): BP systolic 145–167; BP diastolic 88–106; PULSE 69–92; RESP 16–19; TEMP 36.2–36.6; O2SAT 94–98; BMI 41.9; BMI 42.3
--- NOTE | 2024-02-26 | XR_ITS ---
WS: [id number] C-ARM RADIOGRAPHS LUMBAR SPINE; 4 IMAGES HISTORY: RUTH PICS COMPARISON: None available. Poor quality imaging of the lumbar spine. Levels are difficult to determine on the imaging submitted. Imaging provided during posterior lumbar fusion hardware placement. XR/XR lumbar spine 2-3V* [id number] IMPRESSION: Intraoperative imaging during lumbar fusion.
[2024-02-26] MEDS: sodium chloride 0.9% 1,000 ML 30 ML IV (12:54)
[2024-02-26] MEDS: scopolamine 1.5 Patch 1 PATCH TRANSDERMA (13:35)
--- NOTE | 2024-02-26 13:58 | ANES.PREANE2 ---
Pre-Anesthetic Assessment Height/Weight: Height 1.73 m Weight 125.191 kg Temp Pulse Resp BP Pulse Ox O2 Del Method 97.9 F 69 16 167/104 97 Room Air 02/26/24 12:15 02/26/24 12:15 02/26/24 12:15 02/26/24 12:15 02/26/24 12:15 02/26/24 12:36 Preop Diagnosis: Lumbar stenosis with neurogenic claudication and spondylolisthesis at L4-5 Operation Date: 02/26/24 13:30 Proposed Procedures p Spinal Fusion(Not Applicable) - Chi May DO s Posterior Lumbar Interbody Fusion PLIF(Not Applicable) - Chi May DO Familial anesthetic complications: None Was Beta Rojas taken within 24 hours: N/A Was Clonidine taken within 24 hours: N/A Last intake: Intake Last Liquid Date 02/25/24 Last Liquid Time 23:00 Last Solid Date 02/25/24 Last Solid Time 20:00 Social No alcohol and No tobacco Exam alert, oriented x 3, clear to auscultation bilaterally and regular rate & rhythm Airway Mallampati: Class II Dentition: full Pulmonary hx sarcoidosis, not on steroid for several years, states no further symptoms CV/HEM Hypertension GI Gastroesophageal Reflux Disease Metabolic Morbid Obesity Anesthetic Plan ASA status: 3 Anesthesia: General Risk of > 500 ml blood loss (7ml/kg in children): No Medications/Allergies Home Medications Medication Instructions Recorded Confirmed Last Taken Type amlodipine 10 mg tablet 10 mg PO QAM 07/17/19 02/25/24 02/25/24 History levocetirizine 5 mg tablet (Xyzal) 5 mg PO QAM 05/02/20 02/25/24 02/25/24 History pantoprazole 40 mg tablet,delayed 40 mg PO QAM 05/13/20 02/25/24 02/25/24 History release (Protonix) acetaminophen 500 mg tablet 1,000 mg PO Q6H PRN Pain 06/22/20 02/25/24 09/26/20 08:00 History (Tylenol Extra Strength) fenofibrate nanocrystallized 145 145 mg PO QAM 09/14/20 02/25/24 02/25/24 History mg tablet tizanidine 4 mg capsule 4 mg PO TID PRN Muscle Spasm 09/14/20 02/25/24 02/25/24 History sumatriptan succinate 50 mg tablet 50 mg PO PRN 09/26/20 02/25/24 07/17/23 History lisinopril 20 mg tablet 30 mg PO QAM 10/05/20 02/25/24 02/25/24 History dulaglutide 0.75 mg/0.5 mL 0.75 mg SUBCUT Q7D 05/20/22 02/25/24 02/19/24 History subcutaneous pen injector (Trulicity) epinephrine 0.3 mg/0.3 mL See Rx Instructions .Route .COMPLEX 07/10/22 02/25/24 Unknown History injection, auto-injector (EpiPen 2-Nathan) cock up splint #1 ea 08/21/22 02/04/24 Unknown Rx dupilumab 200 mg/1.14 mL 200 mg SUBCUT .2x a month 07/11/23 02/25/24 02/19/24 History subcutaneous pen injector (Dupixent) terbinafine HCl 250 mg tablet 250 mg PO 02/21/24 02/21/24 02/25/24 14:22 History terbinafine HCl 250 mg tablet 250 mg PO 1XD 02/25/24 02/26/24 02/25/24 History clobetasol 0.05 % topical ointment topical 02/26/24 Unknown History Allergies Allergy/AdvReac Type Severity Reaction Status Date / Time Alpha-Gal Allergy Unknown Verified 02/25/24 14:17 (Ndoebjedw-Ggbeq-6,3-Gala fluticasone [From Flonase] Allergy migraine Verified 02/25/24 14:17 alpha galactosidase Allergy ALGY-Anaphy Uncoded 02/25/24 14:17 laxis Current Medications Generic Name Dose Route Start Last Admin Trade Name Freq PRN Reason Stop Dose Admin Sodium Chloride 1,000 mls @ 30 mls/hr 02/26/24 12:00 02/26/24 12:54 Sodium Chloride 0.9% IV 02/27/24 11:59 30 mls/hr .Q24H PARKER Administration PFSH Anesthesia Medical History delivery delivered X 2 Surgical History H/O: hysterectomy H/O tubal ligation Family History Father , AT AGE 49 Esophageal varices with bleeding Mother , AT AGE 66 Cirrhosis of liver Grandmother Cancer kidney Grandfather AML (acute myeloblastic leukemia) Social History Smoking and tobacco/nicotine status: never used tobacco/nicotine Second hand smoke exposure: Yes Alcohol intake: never Substance/Drug Use: current Substance/Drug use frequency: daily Marital status: Current occupational status: disabled Data Anesthesia Cardiac Studies: Holter Monitor 05/30/22
[2024-02-26] MEDS: midazolam 1 mg/mL INJ 2 mL 2 MG IVP (14:06)
--- NOTE | 2024-02-26 14:21 | W.PM.OPSUD ---
Surgery/Procedure H&P Update DATE OF PROCEDURE: February 26, 2024 DATE H&P PERFORMED: 02/21/24 H&P UPDATE INFORMATION: I have reviewed H&P completed within last 30 days, I have examined patient prior to procedure and No changes to prior documentation PREOP DIAGNOSIS: Lumbar stenosis with neurogenic claudication and spondylolisthesis at L4-5 PLANNED PROCEDURE: Operation Date: 02/26/24 13:30 Proposed Procedures p Spinal Fusion(Not Applicable) - Chi May DO s Posterior Lumbar Interbody Fusion PLIF(Not Applicable) - Chi May DO
[2024-02-26] MEDS: ceFAZolin 2,000 mg SDV 2000 MG IVP (14:51)
[2024-02-26] MEDS: vancomycin 1,000 MG SDV 1000 MG XX (15:33)
[2024-02-26] MEDS: heparin, porcine 1,000 unit/mL INJ 10 mL 10000 UNIT IRRIGATION (15:34)
[2024-02-26] MEDS: lidocaine-epi 1% 20 mL INJ INJECTION (15:34)
[2024-02-26] MEDS: ceFAZolin 1,000 mg SDV 1000 MG IVP (15:40)
--- NOTE | 2024-02-26 17:54 | P.OP_ITS ---
Operative Report Date of procedure: February 26, 2024 Pre-op diagnosis: Lumbar stenosis neurogenic claudication Post-op diagnosis: same Procedure done: 1. L4/5 Interbody fusion with posterolateral fusion 2. Instrumentation L4/5 3. Cage at L4/5 4. L4-5 laminectomy with facetectomies 5. use of autograft from same incision 6. allograft 7. Bone marrow aspirate from right iliac crest 8. Use of computer navigation stereotactic for the spine Surgeon: Chi May DO Estimated blood loss (mL): 300 Procedure: 1. L4/5 Interbody fusion with posterolateral fusion 2. Instrumentation L4/5 3. Cage at L4/5 4. L4-5 laminectomy with facetectomies 5. use of autograft from same incision 6. allograft 7. Bone marrow aspirate from right iliac crest 8. Use of computer navigation stereotactic for the spine Patient is brought to the operative suite. After undergoing anesthesia, the patient had neuro monitoring attached. Patient was then placed in the prone position on the Curt table. All areas of impingement were well-padded. Patient was then prepped and draped in the normal sterile fashion. Skin incision was then made over the L 4/5 space. Subperiosteal dissection was made out to the transverse processes of L4 and L5 bilaterally. The curated.by bone marrow aspirate kit was used to aspirate bone marrow aspirate drawn from the right iliac crest. This was done by using the sharp probe to open up the bone. Aspiration was performed and then the blunt probe was then used to dissect down to through the bone tunnel. An aspirating well drawn back a millimeter approximately 20 cc of bone marrow aspirate was used. Admixed with the allograft and autograft bone that will be used. Next 2 pins were placed in the right iliac crest and greater were used to attach the fusion to in order to do the computer navigation. This was done by placing 2 pins the patient was attached and serum was brought in spinal patient information from serum was loaded the computer and was later used to place the pedicle screws under computer navigation. The technique for placing the pedicle screws was to use a drill followed by the gearshift probe linked to computer navigation. Followed by the ball probe to feel the superior inferior medial lateral murphy of the pedicles. Then placement of the screws linked to computer navigation. Was done at each pedicle. Screws were placed at L4 bilaterally and L5 bilaterally. Next attention was brought to performing the laminectomy ofL4. This was done using the high-speed bur Kerrisons and curettes. Once the lamina was removed and then attention was brought to performing a partial facetectomy on the contralateral side. This was done again using the high-speed bur curettes and Kerrisons. The ligamentum flavum was taken down bilaterally from L4 to L5. Attention was then brought to the facet on the ipsilateral side. The facet was taken down. The L5 nerve was decompressed as it passed around the L5 pedicle. The laminectomy was done for purposes of decompressing the nerve as well as placement of the cage. The L4 nerve was identified as it traversed through the L4/5 foramen. The thecal sac was identified and retracted. The L4/5 disc base was identified. Using a knife the disc base was opened. And then sequential onur were placed. The first shaver was a 6 and the last shaver was a 11. Using a pituitary and down going curette the endplates were scraped and disc material was removed from the space. Once adequate decompression of the disc base was felt to be had. Osteoamp sponge was packed into the anterior aspect of the disc base. Then a size 12 cage from [email or web address] was placed after packing osteoamp into the cage. While placing the cage the thecal sac and L5 nerve was protected. C arm was used to ensure that the cages placed in the appropriate position. Attention was then brought to attaching the rods to the screws placed in the L4 bilaterally and L5 bilaterally. Caps were torqued into position. Locking the construct in place. Wound was copiously irrigated and then attention was brought to decorticating the facets and transverse processes laterally. Bone that was taken down from the lamina was used along with osteoamp fibers and sponges were packed into the lateral gutters along the facet joints. This was done bilaterally. Wound was then closed in a layered fashion starting with the thoracolumbar fascia. 0-vicryl was used the sub cutaneous tissue was closed with 2-0 vicryl and skin with 4-0 monocryl. Glue was then used to seal the skin and a steril dressing was applied. Patient was then placed in the supine position. The endotracheal tube was removed and patient was transferred to the PACU in stable condition.
--- NOTE | 2024-02-26 18:50 | ANE.PACU2 ---
Inpatient post-anesthesia follow up: Airway intact: Yes Vital signs: Temperature 98.1 F Pulse Rate 66 Respiratory Rate 18 Blood Pressure 139/88 Pulse Oximetry 98 Oxygen Delivery Me thod Room Air Oxygen Flow Rate Fraction of Inspir ed Oxygen Hydration adequate: Yes Nausea and vomiting: No Pain level: 1 Mental status: Baseline
[2024-02-26] MEDS: HYDROmorphone 1 mg/mL INJ 1 mL (19:18)
[2024-02-26] MEDS: ondansetron 2 mg/ML SDV 2 mL 4 MG IVP (19:46)
[2024-02-26] MEDS: docusate sodium 100 mg Capsule PO (19:51)
[2024-02-26] MEDS: morphine 4 mg/mL SDV 1 mL 2 MG IVP ×2 (19:53→23:52)
[2024-02-26] MEDS: lactated ringers 1,000 ML 90 ML IV (20:06)
[2024-02-26 20:24] LABS: Glucose Point of Care 218 mg/dL (70-110)
[2024-02-26] MEDS: tizanidine 4 mg Tablet PO (21:17)
[2024-02-26] MEDS: ceFAZolin 3,000 MG in sodium chloride 0.9% (plus) 100 ML 200 MG IV (23:51)
[2024-02-27 00:50] VITALS: RESP 18
[2024-02-27] MEDS: morphine 4 mg/mL SDV 1 mL 2 MG IVP ×3 (00:50→06:09)
[2024-02-27] MEDS: ondansetron 2 mg/ML SDV 2 mL 4 MG IVP (00:51)
[2024-02-27 02:34] VITALS: RESP 18
[2024-02-27] MEDS: HYDROcodone-acetaminophen 7.5-325 mg Tablet PO ×2 (04:00→09:00)
[2024-02-27 04:43] VITALS: BP 139/88; PULSE 66; RESP 19; TEMP 36.7; O2SAT 98
[2024-02-27 06:09] VITALS: RESP 18
[2024-02-27] MEDS: lactated ringers 1,000 ML 90 ML IV (06:09)
[2024-02-27] MEDS: lisinopril 20 mg Tablet 30 MG PO (06:11)
[2024-02-27] MEDS: cetirizine 10 mg Tablet 5 MG PO (06:12)
[2024-02-27] MEDS: amlodipine 10 mg Tablet PO (06:13)
[2024-02-27] MEDS: fenofibrate 145 mg Tablet PO (06:13)
[2024-02-27] MEDS: pantoprazole DR 40 mg Tablet PO (06:13)
[2024-02-27 06:35] LABS: Glucose Point of Care 139 mg/dL (70-110)
[2024-02-27 07:45] VITALS: BP 151/89; PULSE 68; RESP 16; TEMP 36.7; O2SAT 97
[2024-02-27] MEDS: docusate sodium 100 mg Capsule PO (08:59)
[2024-02-27] MEDS: ceFAZolin 3,000 MG in sodium chloride 0.9% (plus) 100 ML 20 MG IV (08:59)
--- NOTE | 2024-02-27 10:06 | PM.DCS ---
Discharge Providers Date of Admission: 02/26/24 17:15 Date of Discharge: February 27, 2024 Attending Provider at Admission: Chi May DO Attending Provider at Discharge: Chi May DO Primary Care Provider: Amada Rivers Reason for Visit Reason for Visit: M48.062 Physical Exam Narrative: Patient up walking the hallways. Doing well pain controlled. Urinary Catheter Management: Larsen: Cath Placed During This Visit: yes, but has since been removed by the nurse Reason for Continuing Indwelling Catheter: Required Immobilization for Trauma or Surgery or Anesthesia Urinary Catheter Date of Insertion: 02/26/24 Urinary Catheter Time of Insertion: 15:15 Date Urinary Catheter Removed: 02/27/24 Time Urinary Catheter Discontinued: 06:33 Discharge Data Studies Completed and Pending Pending at discharge Category Date Time Status C-arm Fluoroscopy [id number] Routine Exams 02/26/24 11:58 Ordered Laboratory Results POC Glucose 139 mg/dL (70-110) H 02/27/24 06:32 Blood Type A Negative 02/26/24 12:55 Rho(D) Type Rh negative 02/26/24 12:55 Antibody Screen Negative 02/26/24 12:55 Vitals Last Vital Signs Temp 98.1 F 02/27/24 07:45 Pulse 68 02/27/24 07:45 Resp 16 02/27/24 07:45 BP 151/89 02/27/24 07:45 Pulse Ox 97 02/27/24 07:45 O2 Del Method Room Air 02/27/24 07:45 Discharge Plan Discharge Patient Disposition: Home Condition: Stable Prescriptions: New hydrocodone-acetaminophen 5-325 mg tablet 1 - 2 tab PO .Q4-6H Qty: 40 0RF Continued amlodipine 10 mg tablet 10 mg PO QAM lisinopril 20 mg tablet 30 mg PO QAM tizanidine 4 mg capsule 4 mg PO TID PRN (Reason: Muscle Spasm) fenofibrate nanocrystallized 145 mg tablet 145 mg PO QAM levocetirizine [Xyzal] 5 mg tablet 5 mg PO QAM Trulicity 0.75 mg/0.5 mL pen injector 0.75 mg SUBCUT Q7D Rx Instructions: takes on wednesdays (DME) cock up splint See Rx Instructions .Route .MEDSUPPLY Qty: 1 0RF Rx Instructions: As directed Dupixent Pen 200 mg/1.14 mL pen injector 200 mg SUBCUT .2x a month pantoprazole [Protonix] 40 mg Tablet,Delayed Release (Dr/Ec) 40 mg PO QAM sumatriptan succinate 50 mg tablet 50 mg PO PRN epinephrine [EpiPen 2-Nathan] 0.3 mg/0.3 mL auto-injector See Rx Instructions .ROUTE .COMPLEX Rx Instructions: as directed prn terbinafine HCl 250 mg tablet 250 mg PO QAM Discontinued Tylenol Extra Strength 500 mg tablet 1,000 mg PO Q6H PRN (Reason: Pain) Discharge Orders: Discharge Order (Routine); Ordered 02/27/24 Ordered By: Chi May Referrals: Chi May, DO [Physician] - Discharge Diet: Advance as tolerated Discharge Activity: Limit activity as instructed Patient Instructions: Acute Wound Care (DC), Opioid Safety, Post Anesthesia Care Activity Restrictions/Additional Instructions: Thank you for [facility] for your care! The following is a list of instructions, from your provider, to follow upon your discharge to ensure you have the optimal recovery from your recent injury orsurgery. Follow-up care is a jamil part of your treatment and safety. Be sure to make and go to all appointments, and call your doctor if you are having problems. If you do not already have a follow-up appointment made, call Dr. May office in the next 1-3 days to make follow up appointment for 1 weeks at [phone]. It is also a good idea to know your test results and keep a list of the medicines you take. Medications will be prescribed for you at your provider's discretion. These medications are to be used as instructed; if they are taken more often that prescribed they will not be refilled early and in most cases will not be refilled at all. > When a refill is needed,you should contact avila tineo 2-3 business days before your prescription runs out. Medications will NOT be refilled by supervisory air intercept controller providers after hours! > Many pain medications contain Tylenol (Acetaminophen). Do not consume more than 4,000 mg of Tylenol per day in total with any combination ofmedications. > Pain medications can cause constipation. Please use an over the counter stool softener as directed, while taking pain medications. Consulty our local pharmacist with questions or recommendations on stool softeners. If constipation persists, contact our office or your primary care provider. > While under our care,you are not to receive pain medications or other controlled substances from any other provider unless our office is notified and approves. Any attempts to do so will result in refusal to prescribe any further pain medications and possible dismissal from our practice. ? Keep dressing on for 1 week. Will change the dressing in the clinic. ? Showering is permitted, however we ask that you do not take a bath, sit in a whirlpool / Jacuzzi, or go swimming for 1 month. For only the first 2 days after surgery, lt wilt be necessary for you to cover your wound/dressing with plastic and tape to keep it dry. ? Walking is essential for the healing process after surgery. We would like you to slowly advance your walking. This should be done on relatively flat clear ground (inside or out) or can be done on a treadmill. Remember this goal does not have to happen all at once, slowly increase your distance and duration. This can be broken into more more than one walk per day as tolerated. Patients who walk as directed after surgery rarely require Physical Therapy. In the unlikely event this issue arises your provider will direct hospital staff to make the appropriate arrangements. ? No lifting over 5 pounds {a gallon of milk) or bending/twisting until further notice. Each of these activities places an unnecessary amount of stress onto the body and can impede the delicate healing process. > Instead of bending at the waist, keep your back straight and bend at the knees. > Instead of twisting your torso, keep your back straight and turn your entire body with your feet. ? You may sleep in any position which makes you comfortable. Many patients find comfort sleeping in a reclining chair. It is not abnormal to have difficulty sleeping for the first several weeks following your surgery. We recommend trying Benadry! or Tylenol PM as directed to help with your sleeping difficulties. Both medications are over the counter and available withoutprescription. ? NO SMOKING!!! Smoking dramatically increases the probability of developing postoperative wound infections. ? Common complaints after lumbar and/or thoracic spine surgery include, but are not limited to: numbness and/or tingling in the legs, pain around the incision and surrounding tissues, muscle spasms, or stiffness of the middle to low back. Contact our office if these symptoms persist or if an acute change occurs. ? No driving for the first 3-5days, and not while taking narcotics [] until seen at your follow-up appointment and cleared. There are no restrictions for riding on short trips, however if you take a longer trip, arrangements should be made to make regular stops to get out of the vehicle and stretch . ? Swelling is an unfortunate event that will take place with any surgery and is the primary source of your postoperative discomfort. While walking and regular approved activities helps control inflammation, there are additional steps you can take to minimizeswelling. > Place ice over the surgical site and surrounding tissue for twenty minutes, followed by applying a low/medium heat (heating pad) for an additional twenty minutes every 1-2 hours as needed for painrelief. > You may use of over the counter anti-inflammatory medications (Ibuprofen, Motrin, Aleve, Advil, etc) as directed on the package label. These types of medicines wm significantly reduce the amount of discomfort you experience after surgery from swelling. It should be noted that if you have and allergy to any of these medications, or a history of ulcers or kidney disease you should consult you primary care provider prior to starting these medications. Discharge Attestations Time Spent in Discharge Care*: less than 30 min Quality Metrics Clinical Quality Measures [ No reported AMI, CVA or VTE this stay] Coding Level of Care Code Acute Code for Chg Gerald
[2024-02-27] MEDS: tizanidine 4 mg Tablet PO (10:54)
--- NOTE | 2024-02-27 11:19 | PC.NURSE ---
Hemovac removed with 100 cc sanguineous drainage.
[2024-02-27 11:21] LABS: Glucose Point of Care 115 mg/dL (70-110)
[2024-02-27 11:25] VITALS: BP 151/89; PULSE 68; RESP 16; TEMP 36.7; O2SAT 97
== END 2024-02-27 11:25 | disposition home or self-care (01) ==
LOC: MEDSURG 17:15
PROVIDERS: Admitting Provider Orthopaedic Surgery; PCP Nurse Practitioner Family; Visit Provider Orthopaedic Surgery
PROC: (CPT 20930; principal; 2024-02-26 13:00)
PROC: (CPT 22612; 2024-02-26 13:00)
DX: M48.062 Spinal stenosis, lumbar region with neurogenic claudication (principal); I10 Essential (primary) hypertension; K21.9 Gastro-esophageal reflux disease without esophagitis; E66.01 Morbid (severe) obesity due to excess calories; Z68.41 Body mass index [BMI] 40.0-44.9, adult
CPT/HCPCS: 20930; 20936; 20939; 22633; 22842; 22853; 61783; 63052; 36415; 36416; 51702; 72100; 76000; 82962; 86850; 86900; 97110; 97116; 97161; C1713; G0378; J0131; J0330; J0690; J1100; J1170; J1644; J2250; J2270; J2405; J2704; J3010; J3370; J3490; J7030; J7120

== ENCOUNTER 2024-03-04 10:07 | Emergency (ER) | payer MEDICAID, SELFPAY ==
[2024-03-04 10:18] VITALS: BP 170/107; PULSE 81; RESP 18; TEMP 36.8; O2SAT 99; BMI 41.9
[2024-03-04 10:36] VITALS: BP 133/97; PULSE 78; O2SAT 98
--- NOTE | 2024-03-04 10:42 | W.ED.WOUNDLC ---
HPI - Wound/Laceration General: Chief Complaint: Wound/Laceration Stated Complaint: surgical incision bleeding (surg 7xdays ago) Time Seen by Provider: 03/04/24 10:19 Source: patient Mode of arrival: ambulatory Limitations: no limitations History of Present Illness: 48-year-old female who states that she had lumbar fusion 1 week ago she states that she has had some slight bleeding from her wound she denies any fevers denies any purulent drainage. States that she went to have her wound checked. Associated symptoms: Denies chills, fever(s), nausea or vomiting Related Data Home Medications Medication Instructions Recorded Confirmed amlodipine 10 mg tablet 10 mg PO QAM 07/17/19 02/25/24 levocetirizine 5 mg tablet (Xyzal) 5 mg PO QAM 05/02/20 02/25/24 pantoprazole 40 mg tablet,delayed 40 mg PO QAM 05/13/20 02/25/24 release (Protonix) fenofibrate nanocrystallized 145 145 mg PO QAM 09/14/20 02/25/24 mg tablet tizanidine 4 mg capsule 4 mg PO TID PRN Muscle Spasm 09/14/20 02/25/24 sumatriptan succinate 50 mg tablet 50 mg PO PRN 09/26/20 02/25/24 lisinopril 20 mg tablet 30 mg PO QAM 10/05/20 02/25/24 dulaglutide 0.75 mg/0.5 mL 0.75 mg SUBCUT Q7D 05/20/22 02/25/24 subcutaneous pen injector (Trulicity) epinephrine 0.3 mg/0.3 mL See Rx Instructions .Route .COMPLEX 07/10/22 02/25/24 injection, auto-injector (EpiPen 2-Nathan) dupilumab 200 mg/1.14 mL 200 mg SUBCUT .2x a month 07/11/23 02/25/24 subcutaneous pen injector (Dupixent) terbinafine HCl 250 mg tablet 250 mg PO QAM 02/25/24 02/26/24 Previous Rx's Medication Instructions Recorded cock up splint #1 ea 08/21/22 hydrocodone 5 mg-acetaminophen 325 1 - 2 tab PO .Q4-6H PRN pain 7 03/03/24 mg tablet days #40 tabs Allergies Allergy/AdvReac Type Severity Reaction Status Date / Time Alpha-Gal Allergy Unknown Verified 02/25/24 14:17 (Cpwsusizo-Rtiml-3,3-Gala fluticasone [From Flonase] Allergy migraine Verified 02/25/24 14:17 alpha galactosidase Allergy ALGY-Anaphy Uncoded 02/25/24 14:17 laxis Review of Systems Const: Denies: fever(s), chills, body aches or change in appetite ENMT: Denies: throat pain or dental pain Card: Denies: chest pain Resp: Denies: dyspnea GI: Denies: abdominal pain, nausea, vomiting or diarrhea Musc: Reports: back pain; Denies: neck pain Skin/Breast: Denies: rash Neuro: Denies: headache(s) PFSH ED PFSH: Medical History delivery delivered X 2 Surgical History H/O: hysterectomy H/O tubal ligation Family History Father , AT AGE 49 Esophageal varices with bleeding Mother , AT AGE 66 Cirrhosis of liver Grandmother Cancer kidney Grandfather AML (acute myeloblastic leukemia) Social History Smoking and tobacco/nicotine status: never used tobacco/nicotine Second hand smoke exposure: Yes Alcohol intake: never Substance/Drug Use: current Substance/Drug use frequency: daily Marital status: Current occupational status: disabled Physical Exam Const: COMMON NORMALS: no acute distress, patient oriented x3 and healthy appearing HENMT: COMMON NORMALS: normocephalic and atraumatic HEAD & SCALP: normocephalic and atraumatic Neck/C-Spine: COMMON NORMALS: full ROM and supple Chest: COMMONS NORMALS: normal inspection of the chest Resp: COMMON NORMALS: normal respiratory effort Cardio: COMMON NORMALS: regular rate, regular rhythm and No murmurs present (Cardio) RATE: regular rate RHYTHM: regular rhythm Back/Pelvis: OTHER: Incision here is clean dry intact no erythema no active bleeding at this time or drainage Extremity: COMMON NORMALS: normal to inspection and full ROM Neuro: COMMON NORMALS: patient oriented x3, moves all extremities and no focal motor deficits Psych: COMMON NORMALS: mental status grossly normal, Normal thought process present and cooperative THOUGHT PROCESS: Normal thought process present Skin: COMMON NORMALS: no rashes or lesions noted and no wounds GENERAL SKIN EXAM: no rashes or lesions noted Course Vital Signs: Vital signs: Vital Signs Temperature 98.2 F 03/04/24 10:18 Pulse Rate 78 03/04/24 10:36 Respiratory Rate 18 03/04/24 10:18 Blood Pressure 133/97 03/04/24 10:36 Pulse Oximetry 98 03/04/24 10:36 Oxygen Delivery Me thod Room Air 03/04/24 10:18 MDM - Wound/Laceration Medical Decision Making Patient presents here for wound check I see no bleeding at this time I did speak to Dr. May he is going to see her in his office tomorrow I informed her to call and go to the office tomorrow for recheck return if worsening. No radiology studies performed this visit Discharge Plan Discharge Patient Disposition: Home Clinical Impression: Visit for wound check Condition: Stable Prescriptions: No Action amlodipine 10 mg tablet 10 mg PO QAM lisinopril 20 mg tablet 30 mg PO QAM tizanidine 4 mg capsule 4 mg PO TID PRN (Reason: Muscle Spasm) fenofibrate nanocrystallized 145 mg tablet 145 mg PO QAM levocetirizine [Xyzal] 5 mg tablet 5 mg PO QAM Trulicity 0.75 mg/0.5 mL pen injector 0.75 mg SUBCUT Q7D Rx Instructions: takes on wednesdays (DME) cock up splint See Rx Instructions .Route .MEDSUPPLY Qty: 1 0RF Rx Instructions: As directed Dupixent Pen 200 mg/1.14 mL pen injector 200 mg SUBCUT .2x a month hydrocodone-acetaminophen 5-325 mg tablet 1 - 2 tab PO .Q4-6H PRN (Reason: pain) 7 Days Qty: 40 0RF pantoprazole [Protonix] 40 mg Tablet,Delayed Release (Dr/Ec) 40 mg PO QAM sumatriptan succinate 50 mg tablet 50 mg PO PRN epinephrine [EpiPen 2-Nathan] 0.3 mg/0.3 mL auto-injector See Rx Instructions .ROUTE .COMPLEX Rx Instructions: as directed prn terbinafine HCl 250 mg tablet 250 mg PO QAM Discharge Orders: Discharge ED (Routine); Ordered 03/04/24 Ordered By: Paula William Referrals: Chi May DO [Physician] - 1-3 days Amada Rivers FNP [Primary Care Provider] - Discharge Diet: Advance as tolerated Discharge Activity: Resume usual activity Patient Instructions: Lumbar Spinal Fusion (DC) Coding Level of Care Code 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
[2024-03-04] MEDS: HYDROcodone-acetaminophen 5-325 mg Tablet 1 TAB PO (11:17)
[2024-03-04 11:23] VITALS: BP 135/99; PULSE 71; O2SAT 99
== END 2024-03-04 11:24 | disposition home or self-care (01) ==
PROVIDERS: Emergency Provider Emergency Medicine; PCP Nurse Practitioner Family
DX: Z48.01 Encounter for change or removal of surgical wound dressing (principal); Z79.85 Long-term (current) use of injectable non-insulin antidiabetic drugs; Z98.890 Other specified postprocedural states
CPT/HCPCS: 99283

== ENCOUNTER → 2024-03-05 08:29 | Outpatient (BNVA) | payer MEDICAID, SELFPAY | PROVIDERS: PCP Nurse Practitioner Family; Visit Provider Orthopaedic Surgery | DX: Z98.1 Arthrodesis status (principal) | CPT/HCPCS: 99024 ==

== ENCOUNTER → 2024-03-12 08:45 | Outpatient (BNVA) | payer MEDICAID, SELFPAY | PROVIDERS: PCP Nurse Practitioner Family; Visit Provider Orthopaedic Surgery | DX: Z98.1 Arthrodesis status (principal) | CPT/HCPCS: 99024 ==

== ENCOUNTER → 2024-04-09 08:57 | Outpatient (BNVA) | payer MEDICAID, SELFPAY | PROVIDERS: PCP Nurse Practitioner Family; Visit Provider Orthopaedic Surgery | DX: M54.9 Dorsalgia, unspecified (principal); Z98.1 Arthrodesis status | CPT/HCPCS: 72100; 99024 ==

== ENCOUNTER → 2024-05-19 14:54 | Outpatient (BNVA) | payer MEDICAID, SELFPAY | PROVIDERS: PCP Nurse Practitioner Family; Visit Provider Orthopaedic Surgery | DX: Z98.1 Arthrodesis status (principal) | CPT/HCPCS: 72100; 99024 ==

== ENCOUNTER 2024-05-29 10:21 | Outpatient (RCR) | payer MEDICAID, SELFPAY | END 2024-06-16 23:59 | disposition home or self-care (01) | LOC: SPT 10:21 | PROVIDERS: Visit Provider Orthopaedic Surgery | DX: M54.9 Dorsalgia, unspecified (principal); G89.29 Other chronic pain | CPT/HCPCS: 97110; 97161 ==

== ENCOUNTER → 2024-08-25 14:22 | Outpatient (BNVA) | payer MEDICAID, SELFPAY | PROVIDERS: PCP Nurse Practitioner Family; Visit Provider Orthopaedic Surgery | DX: Z98.1 Arthrodesis status (principal) | CPT/HCPCS: 72100; 99214 ==

== ENCOUNTER → 2024-09-24 09:01 | Outpatient (BNVA) | payer MEDICAID, SELFPAY | PROVIDERS: PCP Nurse Practitioner Family; Referring Provider Orthopaedic Surgery; Visit Provider Psychiatry & Neurology Neurology | DX: Z98.1 Arthrodesis status (principal); M47.12 Other spondylosis with myelopathy, cervical region; M47.22 Other spondylosis with radiculopathy, cervical region; G56.20 Lesion of ulnar nerve, unspecified upper limb | CPT/HCPCS: 95885; 95913 ==

== ENCOUNTER → 2024-09-29 14:30 | Outpatient (BNVA) | payer MEDICAID, SELFPAY | PROVIDERS: PCP Nurse Practitioner Family; Visit Provider Orthopaedic Surgery | DX: Z98.1 Arthrodesis status (principal) | CPT/HCPCS: 99213 ==

== ENCOUNTER 2024-11-26 14:35 | Outpatient (CLI) | payer MEDICAID, SELFPAY ==
--- NOTE | 2024-11-26 14:41 | XR_ITS ---
WS: [id number] KUB, AP view, 11/26/2024 Clinical Data: LEFT FLANK PAIN Comparison: KUB, 10/05/2020 Findings: There is a 0.6 cm calcification in the inferior pole of the left kidney. There are clips in the right upper quadrant from gallbladder surgery and other intra- abdominal surgery. There is a posterior lumbar fusion at L4-L5 with disc spacer. No bowel dilatation or obstruction is seen. XR/XR KUB [id number] Impression: Inferior pole 0.6 cm calcification of the left kidney.
== END 2024-11-26 14:36 | disposition home or self-care (01) ==
LOC: RAD 14:37
PROVIDERS: PCP Nurse Practitioner Family; Visit Provider Nurse Practitioner Family
DX: R10.9 Unspecified abdominal pain (principal); N20.0 Calculus of kidney; Z90.5 Acquired absence of kidney
CPT/HCPCS: 74018

== ENCOUNTER → 2024-12-03 10:34 | Outpatient (BNVA) | payer MEDICAID, SELFPAY | PROVIDERS: PCP Nurse Practitioner Family; Visit Provider Orthopaedic Surgery | DX: Z98.1 Arthrodesis status (principal); M25.642 Stiffness of left hand, not elsewhere classified; M79.642 Pain in left hand; R29.898 Other symptoms and signs involving the musculoskeletal system | CPT/HCPCS: 72100; 99214 ==

== ENCOUNTER 2024-12-04 16:12 | Outpatient (CLI) | payer MEDICAID, SELFPAY ==
--- NOTE | 2024-12-04 16:18 | USR_ITS ---
PROCEDURE INFORMATION: Exam: US Retroperitoneal, Complete, Kidneys and Bladder Exam date and time: 12/04/2024 4:25 PM Age: 49 years old Clinical indication: Condition or disease; Kidney or ureter condition; Cyst of kidney; Additional info: Renal cysts TECHNIQUE: Imaging protocol: Real-time ultrasound of the retroperitoneum with image documentation. Complete exam focused on the bilateral kidneys and urinary bladder. COMPARISON: US renal BI* [id number] 11/13/2022 6:34 AM FINDINGS: Right kidney: Normal. 5 mm stone noted. No hydronephrosis. Left kidney: Normal. No stones. No hydronephrosis. Urinary bladder: Unremarkable. US/US renal BI* [id number] IMPRESSION: Small right renal stone. No hydronephrosis noted.
== END 2024-12-04 16:13 | disposition home or self-care (01) ==
PROVIDERS: PCP Nurse Practitioner Family; Visit Provider Nurse Practitioner Family
DX: N28.1 Cyst of kidney, acquired (principal); N20.0 Calculus of kidney
CPT/HCPCS: 76770

== ENCOUNTER → 2024-12-23 07:51 | Outpatient (BNVA) | payer MEDICAID, SELFPAY | PROVIDERS: PCP Nurse Practitioner Family; Visit Provider Student in an Organized Health Care Education/Training Program | DX: R29.898 Other symptoms and signs involving the musculoskeletal system (principal); M79.641 Pain in right hand; G56.21 Lesion of ulnar nerve, right upper limb; G56.01 Carpal tunnel syndrome, right upper limb; Z98.890 Other specified postprocedural states | CPT/HCPCS: 73130; 99204 ==

== ENCOUNTER 2025-01-06 09:45 | Outpatient (RCR) | payer MEDICAID, SELFPAY | END 2025-01-14 23:59 | disposition home or self-care (01) | LOC: SOT 09:45 | PROVIDERS: Visit Provider Student in an Organized Health Care Education/Training Program | DX: G56.01 Carpal tunnel syndrome, right upper limb (principal); G56.21 Lesion of ulnar nerve, right upper limb | CPT/HCPCS: 97165 ==

== ENCOUNTER 2025-01-13 09:12 | Outpatient (CLI) | payer MEDICAID, SELFPAY ==
--- NOTE | 2025-01-13 09:18 | MM_ITS ---
WS: [id number] BILATERAL SCREENING DIGITAL TOMOSYNTHESIS MAMMOGRAM WITH CAD HISTORY: SCREENING COMPARISON: 01/13/2024, 01/11/2023 Bilateral CC and MLO views with tomosynthesis and synthetic mammography submitted. Computer aided detection analyzed. Breast composition: There are scattered areas of fibroglandular density. No suspicious masses, microcalcifications or architectural distortion. Prior biopsy clip in the anterior central LEFT breast. MM/MM scr BI tomosynthesis [id number] IMPRESSION: BI-RADS: 2 - Benign. FOLLOW UP: 1 Year Follow-up
== END 2025-01-13 09:13 | disposition home or self-care (01) ==
LOC: RAD 09:14
PROVIDERS: PCP Nurse Practitioner Family; Visit Provider Nurse Practitioner Family
DX: Z12.31 Encounter for screening mammogram for malignant neoplasm of breast (principal); R92.323 Mammographic fibroglandular density, bilateral breasts; Z97.8 Presence of other specified devices
CPT/HCPCS: 77063; 77067

== ENCOUNTER 2025-02-11 10:20 | Outpatient (CLI) | payer MEDICAID, SELFPAY ==
--- NOTE | 2025-02-11 10:30 | CTR_ITS ---
PROCEDURE INFORMATION: Exam: CT Abdomen And Pelvis Without And With Contrast Exam date and time: 02/11/2025 10:56 AM Age: 49 years old Clinical indication: Right nephrolithiasis; Abnormal radiologic finding of the abdomen; Radiologic exam and body structure: US abd; Prior surgery; Surgery date: 6+ months; Surgery type: Hyst, gb, appy, back; Additional info: R renal mass TECHNIQUE: Imaging protocol: Computed tomography of the abdomen and pelvis without and with contrast. 3D rendering (Not supervised by radiologist): MIP and/or 3D reconstructed images were created by the technologist. Radiation optimization: All CT scans at this facility use at least one of these dose optimization techniques: automated exposure control; mA and/or kV adjustment per patient size (includes targeted exams where dose is matched to clinical indication); or iterative reconstruction. Contrast material: OMNI 350; Contrast volume: 100 ml; Contrast route: INTRAVENOUS (IV); COMPARISON: MRI abdomen on 11/28/2022. Renal ultrasound on 12/04/2024 is not emergently available for review. RADIATION DOSE METRICS: Total DLP (mGy-cm): 4426.63 FINDINGS: KIDNEYS, URETERS, BLADDER: The unenhanced images demonstrate a 6.5 mm nonobstructing stone in the lower pole of the LEFT kidney. The possible punctate calyceal or renal pyramid calcification posteriorly in the right mid kidney. No hydronephrosis involving either kidney. A slightly heterogeneous mass within the right mid kidney lateral cortex measures approximately 2.4 cm. Based on previous MRI, this appears to represent remnants of a hemorrhagic cyst that is partially collapsed since the previous MRI exam. A benign cyst is present in the midportion of the left kidney laterally, without significant change from previous exam. A few subcentimeter renal lesions are compatible with cysts and are similar in distribution to the previous MRI exam. An 11 mm lesion in the right anterior mid kidney (series 7, image 68) is too small to characterize with certainty but does not appear significantly changed in size since 2022. No ureteral or bladder calculi identified. Prompt bilateral renal excretion of contrast. ABDOMEN: Mild diffuse hepatic steatosis may be present. No obvious acute abnormality of the liver. Benign splenic cyst measuring approximately 3.7 cm similar to previous exam. A 2.2 cm left adrenal adenoma is not changed significantly since prior exam. Right adrenal gland is unremarkable. Status post cholecystectomy; no biliary duct dilation. No acute abnormality of the pancreas. The abdominal aorta has normal caliber. Prior posterior instrumentation at L4-L5. Metallic implant present within the L4-L5 disc space. Very small fat containing umbilical hernia and multiple very tiny fat containing supraumbilical incisional hernias. PELVIS: No evidence of bowel obstruction or obvious acute pelvic abnormality. Status post hysterectomy and appendectomy. CT/CT abdomen pelvis wo/w [id number] IMPRESSION: 1. No evidence of upper urinary tract obstruction. Nonobstructing nephrolithiasis is present. 2. Mildly complex right renal mass consistent with a partially collapsed hemorrhagic cyst, smaller in size than on 11/28/2022 MRI exam. 3. Multiple very small renal lesions are present, many too small to characterize with certainty, but without significant change in size since 2022. 4. Left adrenal adenoma and other incidental findings as noted above.
[2025-02-11] MEDS: iohexol 350 mg/mL 500 mL Btl (per mL) IV (11:03)
== END 2025-02-11 10:21 | disposition home or self-care (01) ==
LOC: RAD 10:21
PROVIDERS: PCP Nurse Practitioner Family; Visit Provider Nurse Practitioner Family
DX: N28.89 Other specified disorders of kidney and ureter (principal); D35.02 Benign neoplasm of left adrenal gland; N20.0 Calculus of kidney
CPT/HCPCS: 74178

== ENCOUNTER → 2025-02-24 07:56 | Outpatient (BNVA) | payer MEDICAID, SELFPAY | PROVIDERS: PCP Nurse Practitioner Family; Visit Provider Student in an Organized Health Care Education/Training Program | DX: G56.01 Carpal tunnel syndrome, right upper limb (principal); R29.898 Other symptoms and signs involving the musculoskeletal system; Z98.890 Other specified postprocedural states; G56.21 Lesion of ulnar nerve, right upper limb | CPT/HCPCS: 99213 ==

== ENCOUNTER → 2025-03-04 14:14 | Outpatient (BNVA) | payer MEDICAID, SELFPAY | PROVIDERS: PCP Nurse Practitioner Family; Visit Provider Orthopaedic Surgery | DX: Z98.1 Arthrodesis status (principal); M47.12 Other spondylosis with myelopathy, cervical region | CPT/HCPCS: 72100; 99213 ==

== ENCOUNTER 2025-03-22 07:57 | Outpatient (CLI) | payer MEDICAID, SELFPAY ==
--- NOTE | 2025-03-22 08:00 | MR_ITS ---
WS: [id number] MRI CERVICAL SPINE NONCONTRAST HISTORY: neck pain COMPARISON: 05/16/2022 Technique: Multiplanar, multisequence noncontrast imaging of the cervical spine. Since the prior examination patient has undergone anterior cervical fusion at C5-C7. Interbody spacers at C5-6 and C6-7. There is some very subtle increased T2 signal in the anterior cervical cord seen on several sequences at the C5-6 level. There is no cord compression at this time. Craniocervical junction, C1 and C2 relationship, odontoid process and soft tissues are normal. C2-C3: Normal. C3-C4: Shallow central disc protrusion. Slightly more prominent as compared to the prior study. No stenosis. C4-C5: Mild disc bulging with a small central disc protrusion with minimal change if any since the prior study. There is effacement of ventral CSF and mild osteophytic ridging. Mild central and bilateral foraminal stenosis. C5-C6: Large central disc protrusion is no longer present. There is less central stenosis as compared to the prior study. Mild bilateral foraminal narrowing and facet arthritis. C6-C7: Improved central canal stenosis since the prior study. There is no longer disc contact on the ventral cord. There is some limitation by artifact but no central stenosis. Suspect mild foraminal stenosis. There is a small cyst associated with the LEFT facet joint. C7-T1: No stenosis. Paraspinal soft tissue are normal. MR/MR cervical spin wo con* [id number] IMPRESSION: 1. Status post anterior cervical fusion from C5-C7 with interbody spacers at C 5-6 and C6-7, new since 05/16/2022. 2. Previously described central stenosis at C5-6 and C6-7 has resolved. Resolv ed disc protrusions with no significant residual central stenosis. 3. Mild central and bilateral foraminal stenosis at C4-5 due to disc and osteo phyte disease. Minimal if any progression of central stenosis. 4. Small central disc protrusion at C3-4. 5. Small LEFT facet joint cyst at C6-7. 6. Mild residual bilateral foraminal stenosis at C5-6 and C6-7.
== END 2025-03-22 07:58 | disposition home or self-care (01) ==
LOC: RAD 07:58
PROVIDERS: PCP Nurse Practitioner Family; Visit Provider Orthopaedic Surgery
DX: M47.12 Other spondylosis with myelopathy, cervical region (principal); Z98.1 Arthrodesis status; M50.21 Other cervical disc displacement, high cervical region; M50.31 Other cervical disc degeneration, high cervical region; M48.02 Spinal stenosis, cervical region
CPT/HCPCS: 72141

== ENCOUNTER → 2025-03-25 15:12 | Outpatient (BNVA) | payer MEDICAID, SELFPAY | PROVIDERS: PCP Nurse Practitioner Family; Visit Provider Orthopaedic Surgery | DX: M79.641 Pain in right hand (principal); Z09 Encounter for follow-up examination after completed treatment for conditions other than malignant neoplasm | CPT/HCPCS: 99213 ==

== ENCOUNTER → 2025-05-26 08:46 | Outpatient (BNVA) | payer MEDICAID, SELFPAY | PROVIDERS: PCP Nurse Practitioner Family; Visit Provider Student in an Organized Health Care Education/Training Program | DX: G56.01 Carpal tunnel syndrome, right upper limb (principal); G56.21 Lesion of ulnar nerve, right upper limb | CPT/HCPCS: 99214 ==